=== PATIENT | female | born 2000 | race Two or more races ===

== ENCOUNTER 2021-07-04 12:29 | Emergency (ER) | payer OTHER, SELFPAY ==
--- NOTE | ~2021-07-04 | US_ITS ---
EXAMINATION: US PELVIC AND TRANSVAGINAL US PELVIC OVARIAN DOPPLER CLINICAL INFORMATION: Pain. LMP 06/24/2021. COMPARISON: None TECHNIQUE: Ultrasound of the pelvis is performed using transabdominal transducer and Doppler. Patient declined transvaginal imaging. FINDINGS: Uterus: The uterus is anteverted and measures 6.8 x 2.6 x 3.4 cm. The double wall endometrial thickness is 6 mm. The uterus is smooth in contour and has normal myometrial echogenicity. No visible fibroid. Adnexa: Both ovaries are visualized. There is normal color flow to the adnexa. There is no ovarian torsion. There is no pelvic ascites or fluid collection. Right ovary measures 2.2 x 2.3 x 1.5 cm. The right ovarian volume is 4.0 mL. There is a dominant right ovarian follicle measuring 1.2 cm. Left ovary measures 1.9 x 2.0 x 1.6 cm. The left ovarian volume is 3.2 mL. US/US pelvic and transvaginal IMPRESSION: 1. Dominant right ovarian follicle measuring 1.2 cm. Otherwise the ovaries are sonographically unremarkable. 2. Sonographically unremarkable uterus and endometrium.
--- NOTE | ~2021-07-04 | US_ITS ---
EXAMINATION: US PELVIC AND TRANSVAGINAL US PELVIC OVARIAN DOPPLER CLINICAL INFORMATION: Pain. LMP 06/24/2021. COMPARISON: None TECHNIQUE: Ultrasound of the pelvis is performed using transabdominal transducer and Doppler. Patient declined transvaginal imaging. FINDINGS: Uterus: The uterus is anteverted and measures 6.8 x 2.6 x 3.4 cm. The double wall endometrial thickness is 6 mm. The uterus is smooth in contour and has normal myometrial echogenicity. No visible fibroid. Adnexa: Both ovaries are visualized. There is normal color flow to the adnexa. There is no ovarian torsion. There is no pelvic ascites or fluid collection. Right ovary measures 2.2 x 2.3 x 1.5 cm. The right ovarian volume is 4.0 mL. There is a dominant right ovarian follicle measuring 1.2 cm. Left ovary measures 1.9 x 2.0 x 1.6 cm. The left ovarian volume is 3.2 mL. US/US pelvic ovarian doppler IMPRESSION: 1. Dominant right ovarian follicle measuring 1.2 cm. Otherwise the ovaries are sonographically unremarkable. 2. Sonographically unremarkable uterus and endometrium.
--- NOTE | ~2021-07-04 | CT_ITS ---
EXAMINATION: CT ABDOMEN AND PELVIS WITH CONTRAST CLINICAL INFORMATION: Left lower quadrant pain radiating to the right lower quadrant. COMPARISON: Pelvic ultrasound done earlier today at 3:17 PM. TECHNIQUE: Multidetector volumetric images were obtained from the superior aspect of the liver through the pubic symphysis following administration 85 mL of Omnipaque 350 intravenous contrast. Sagittal and coronal reformatted images were obtained on the technologist's workstation. Oral contrast: No This CT examination was performed using dose optimization techniques as appropriate, variously including the following: *Automated exposure control *Adjustment of mA and/or kV according to patient size (this includes techniques or standardized protocols for targeted exams where dose is matched to indication/reason for exam; i.e. extremities or head) *Use of iterative reconstruction technique DLP: 669 mGy-cm FINDINGS: LUNG BASES: The visualized lung bases are unremarkable. LIVER, GALLBLADDER, AND BILIARY TREE: The liver is normal in size, shape, and attenuation. Mild fatty infiltration adjacent to the falciform ligament. No focal hepatic lesion or biliary ductal dilatation is present. The gallbladder is unremarkable with no evidence of radiopaque gallstones, gallbladder wall thickening, or obvious pericholecystic inflammatory changes. PANCREAS: Unremarkable. SPLEEN: Unremarkable. ADRENAL GLANDS: Unremarkable. KIDNEYS AND URETERS: The kidneys are normal in size, shape, and attenuation. There are a few too small to characterize hypodensities in both kidneys for instance in the interpolar region of the left kidney on image 34 of series 7, which are statistically likely to represent simple cysts. There is however, a larger and somewhat more ill-defined hypodensity in the upper pole of the left kidney (images 22 of series 3 and 46 of series 7) of uncertain etiology. No hydronephrosis, hydroureter, or calculi seen. No perinephric stranding. BLADDER: Unremarkable. GASTROINTESTINAL TRACT: There are some debris in the distal esophagus which could indicate some degree of reflux. The stomach and the small bowel are nondilated. There is a normal appendix. There are no pericolic inflammatory changes or bowel obstruction. ABDOMINAL WALL: There is asymmetric soft tissue thickening and fat stranding in the left perirectal space adjacent to the pubococcygeal muscle and elevated ani (coronal image 50 of series 7). No abdominal hernia. LYMPH NODES: Prominent mesenteric lymph nodes in the right lower quadrant measuring up to 7 mm in short axis (image 26 of series 7). VASCULAR: Unremarkable. PELVIC VISCERA: Functional follicle seen in both ovaries. No adnexal lesions. Normal appearance of the uterus. OSSEOUS STRUCTURES: No acute or aggressive osseous abnormalities. CT/CT abdomen pelvis w con IMPRESSION: There is an ill-defined hypoattenuation in the upper pole of the left kidney which could be related with edematous changes sequela of an infectious or inflammatory process. Correlate clinically for pyelonephritis. Prominent mesenteric lymph nodes in the right lower quadrant of uncertain clinical significance. This could be seen in the setting of mesenteric adenitis. Normal appendix. Debris in the lower esophagus suggests some degree of reflux. Indeterminate fat stranding and thickening adjacent to the left pubococcygeal muscle of uncertain etiology, probably clinically for pain/tenderness at the site. This could be sequela of a prior injury. No drainable collection or abscess formation.
[2021-07-04 12:45] VITALS: BP 114/50; PULSE 68; RESP 18; TEMP 36.8; O2SAT 96; BMI 30.9
[2021-07-04 13:56] LABS: MANUAL DIFF FLAG NO
[2021-07-04 14:03] LABS: Basophils Percent Auto 0.5 % (0-2); Eosinophils Absolute Auto 0.2 X10*3/uL (0.0-0.4); Eosinophils Percent Auto 3.1 % (0-4); Hemoglobin 12.3 g/dl (12.0-16.0); Imm Gran Abs Auto 0.01 X10*3/uL (0.00-0.03); Imm Gran Pct Auto 0.2 % (0.0-0.4); Lymphocytes Absolute Auto 2.2 X10*3/uL (1.2-4.9); Mean Corpuscular HGB Conc 32.4 g/dl (31.0-35.0); Mean Corpuscular Hemoglobin 29.3 pg (27.0-33.0); Mean Corpuscular Volume 90.5 fL (80-98); Mean Platelet Volume 11.2 fL (9.4-12.3); Monocytes Absolute Auto 0.6 X10*3/uL (0.1-1.2); Monocytes Percent Auto 9.5 % (2-11); Neutrophils Absolute Auto 3.5 X10*3/uL (2.0-8.3); Neutrophils Percent Auto 53.7 % (45-73); Platelet Count 278 X10*3/uL (160-400); Red Cell Distribution Width 13.8 % (11.0-16.0); White Blood Count 6.5 X10*3/uL (4.8-10.8)
[2021-07-04 14:22] LABS: Alanine Aminotransferase 27 U/L (0-31); Albumin Level 4.4 g/dL (3.5-5.0); Alkaline Phosphatase 81 U/L (39-117); Anion Gap 10 (12-20); Aspartate Amino Transferase 33 U/L (5-31); Bilirubin Total 0.7 mg/dL (0.0-1.0); Blood Urea Nitrogen 9 mg/dL (9-16); Calcium 9.3 mg/dL (8.4-10.2); Carbon Dioxide 27 mmol/L (22-29); Chloride 107 mmol/L (96-108); Creatinine Clr Calc Pharmacy 109.6; Estimated Glomerular Filt Rate > 60; Glucose Random 107 mg/dL (60-115); Potassium 4.7 mmol/L (3.3-5.1); Sodium 139 mmol/L (135-145); Total Protein 7.4 g/dL (6.5-8.0)
--- NOTE | 2021-07-04 14:44 | ED_ITS ---
HPI - Abdominal Pain General Chief Complaint: Abdominal Pain Stated Complaint: low abd pain Time Seen by Provider: 07/04/21 14:43 Source: patient Mode of arrival: ambulatory Limitations: no limitations History of Present Illness HPI narrative: 20-year-old female, no known medical history presents to the emergency department with 2 days of left lower quadrant pain. She states she had pain similar to this 2 years ago, she was told she had a small ovarian cyst. She states that the pain is intermittent in nature, it is a stabbing pain and severe. She states it is so severe, it causes her to hunch over. She vaguely mentions that the pain is slowly moves from the left lower quadrant, to the right lower quadrant. She reports she had 1 episode of diarrhea today. She denies nausea, vomiting, chest pain, fevers, chills, weakness. Last menstrual period was 2 weeks ago. She states that her periods are heavy, and irregular. She is not regularly followed by an OBGYN. No previous abd surgeries. Not sexually active MD elicited complaint: abdominal pain Pertinent past history: none Onset (ago): day(s) (2) Pain Consistency: intermittent Location: RLQ, LLQ and suprapubic Severity: severe Quality: stabbing Radiation: RLQ Exacerbating factors: nothing Relieving factors: nothing Context: history of similar episodes (Two years ago.) Associated symptoms: other (Diarrhea x1) Related Data Previous Rx's Medication Instructions Recorded cefuroxime axetil 500 mg tablet 500 mg PO BID 10 Days #20 tab 07/04/21 cyclobenzaprine 10 mg tablet 10 mg PO Q8H PRN #14 tab 07/04/21 naproxen 500 mg tablet 500 mg PO BID PRN #10 tab 07/04/21 Allergies Allergy/AdvReac Type Severity Reaction Status Date / Time No Known Allergies Allergy Verified 07/04/21 12:44 [No Known Allergies*] Review of Systems Review of Systems Constitutional : denies med noncompliance, no history of PE or DVT, denies recent travel, No Fever, No Chills ENT/Mouth : No Hoarseness, No sore throat, No Rhinorrhea Eyes: No Redness, No Discharge, No Vision Changes Cardiovascular : No Chest Pain, No SOB, No Dyspnea on Exertion, No Edema, no pleurisy, Respiratory : No Sputum, no stridor, no hemoptysis, Gastrointestinal : No Nausea, No Vomiting, + Diarrhea, + abdominal Pain Genitourinary : No Dysuria, No Hematuria Musculoskeletal : No joint pain, No Myalgias Extremities: no extremity swelling /pain Skin : No rash, no itching, no swelling Neuro : No Weakness, No Numbness, No Headache Yes all other systems are reviewed and are negative Physical Exam Vital Signs: Vital Signs: Last Vital Signs Temp 98.3 F 07/04/21 15: Pulse 54 07/04/21 15: Resp 20 07/04/21 15:26 BP 126/53 L 07/04/21 15: Pulse Ox 100 07/04/21 15: Body Mass Index 30.9 vital signs have been reviewed as normal and appeared to be correct. Blood pressure normal. Heart rate normal. Respiration rate normal. Temperature normal. Oxygen saturation normal. Appearance: Alert. Oriented X3. No acute distress. Head: Normal external exam. Normocephalic. Eyes: PERRLA. EOMI. Conjunctiva and sclera normal. Eyelids normal. ENT: Pharynx normal. Uvula midline. Moist mucous membranes. Neck: Normal inspection. Neck supple. FROM. No adenopathy. No meningeal signs. CVS: Normal heart rate and rhythm. Heart sound normal. No murmurs noted. Pulses normal throughout. Respiratory: No respiratory distress. Painless inspiration. Breath sounds normal. No wheezes/rales/rhonchi noted. Chest nontender. No accessory muscle usage noted or decreased air movement noted. Abdomen: Soft and + tenderness to palpation to LLQ and epigastric region. Nondistended. No guarding. No rigidity. Bowel sounds normal in all 4 quadrants. No distention noted. No organomegaly noted. No visible injury noted. No rebound tenderness. Negative Rovsing sign. Negative obturator's sign. Negative psoas sign. Negative Dutton sign. Back: No CVA tenderness. Full range of motion noted. Skin: Skin warm and dry. Normal skin color. Normal skin turgor. No rashes/lesions/lacerations noted. Extremities: Extremities exhibit normal range of motion. Extremities nontender. Neuro: Oriented X 3. No motor deficit. No sensory deficit. Reflexes normal. Normal steady gait. Course Course Course Narrative: 20-year-old female no known medical history presents to the emergency department with intermittent, stabbing left lower quadrant pain that radiates to her RLQ x2 days, and one episode of liquid diarrhea. She states she had the same exact symptoms about 2 years ago, when she is diagnosed to have a small ovarian cyst. LMP was 2 weeks ago, she reports menometrorrhagia. No concerns for states she is not sexually active. No previous abd surgeries Upon physical examination and there is tenderness to palpation to the left lower quadrant, that radiates to the right lower quadrant. There is also tenderness noted over the epigastric region. Bowel sounds normal in all 4 quadrants. No peritoneal signs. Negative Dutton's, Rosving, McBurney's point. At this time it is unlikely that this is appendicitis, patient is afebrile, labs show no acute infection, there is no electrolyte abnormalities noted, the pain is intermittent in nature, and there is a negative Rovsing, and McBurney's point sign. Will look for ovarian cyst/ torsion with US. Reevaluation(s) Reevaluation #1: Upon reevaluation patient is still complaing of pain to LLQ. Laboratories today show no acute infection. No electrolyte abnormalities noted. UA/urine negative. Ovarian Doppler ultrasound, and pelvic ultrasound show a dominant ovarian follicle, with otherwise unremarkable ovaries. No other findings on ultrasound. Due to lack of acute findings on ultrasound and patients continued pain despite medication a CT of the abdomen with contrast will be ordered to rule out appendicitis or diverticulitis or any other intraabdominal processes Time: 16:18 Reevaluation #2: After reviewing the CT result it is likely that this is muscular in nature. Patient does not have CVA tenderness, urine is clean, patient is afebrile, patient does not report changes in urination, no dysuria, no changes to color of urine unlikely that this is pyelonephritis. Patient is safe for discharge home, likely musculoskeletal in origin, however she will be DC home with ATBX to cover pylonephritis. She will also be sent home with symptomatic treatment. Safe for discharge home with PCP follow-up. Time: 18:16 MDM - Abdominal Pain Medical Records Attestation: I reviewed the patient's medical records. Lab Data Attestation: I reviewed the patient's lab results. Result diagrams: 07/04/21 13:48 07/04/21 13:48 Labs: Lab Results 07/04/21 07/04/21 07/04/21 Range/Units 13:48 13:48 15:45 WBC 6.5 (4.8-10.8) X10*3/uL RBC 4.20 (4.20-5.50) X10*6/uL Hgb 12.3 (12.0-16.0) g/dl Hct 38.0 (37-47) % MCV 90.5 (80-98) fL MCH 29.3 (27.0-33.0) pg MCHC 32.4 (31.0-35.0) g/dl RDW 13.8 (11.0-16.0) % Plt Count 278 (160-400) X10*3/uL MPV 11.2 (9.4-12.3) fL Immature Gran % (Auto) 0.2 (0.0-0.4) % Neut % (Auto) 53.7 (45-73) % Lymph % (Auto) 33.0 (20-40) % [place] % (Auto) 9.5 (2-11) % Eos % (Auto) 3.1 (0-4) % Baso % (Auto) 0.5 (0-2) % Lymph # (Auto) 2.2 (1.2-4.9) X10*3/uL [place] # (Auto) 0.6 (0.1-1.2) X10*3/uL Eos # (Auto) 0.2 (0.0-0.4) X10*3/uL Baso # (Auto) 0.0 (0.0-0.2) X10*3/uL Abs Immat Gran (auto) 0.01 (0.00-0.03) X10*3/uL Absolute Neuts (auto) 3.5 (2.0-8.3) X10*3/uL Absolute Nucleated RBC 0.000 (0.0-0.012) X10*3/uL Nucleated RBC % (auto) 0.0 (0.0-0.2) /100WBC Sodium 139 (135-145) mmol/L Potassium 4.7 (3.3-5.1) mmol/L Chloride 107 (96-108) mmol/L Carbon Dioxide 27 (22-29) mmol/L Anion Gap 10 L (12-20) BUN 9 (9-16) mg/dL Creatinine 0.81 (0.5-1.4) mg/dL Estim Creat Clear Calc 109.6 Estimated GFR > 60 Random Glucose 107 (60-115) mg/dL Calcium 9.3 (8.4-10.2) mg/dL Total Bilirubin 0.7 (0.0-1.0) mg/dL AST 33 H (5-31) U/L ALT 27 (0-31) U/L Alkaline Phosphatase 81 (39-117) U/L Total Protein 7.4 (6.5-8.0) g/dL Albumin 4.4 (3.5-5.0) g/dL Lipase 28 (8-78) U/L Beta HCG, Quant < 2 mIU/mL Urine Color STRAW Urine Appearance CLEAR Urine pH 6.0 (5.0-8.0) Ur Specific [place] <= 1.005 (1.005-1.025) Urine Protein NEG (NEG-TRACE) MG/DL Urine Glucose (UA) NEG (NEG) MG/DL Urine Ketones NEG (NEG) MG/DL Urine Blood NEG (NEG) Urine Nitrite NEG (NEG) Ur Leukocyte Esterase NEG (NEG) Urine Test (NEGATIVE) 07/04/21 Range/Units 15:45 WBC (4.8-10.8) X10*3/uL RBC (4.20-5.50) X10*6/uL Hgb (12.0-16.0) g/dl Hct (37-47) % MCV (80-98) fL MCH (27.0-33.0) pg MCHC (31.0-35.0) g/dl RDW (11.0-16.0) % Plt Count (160-400) X10*3/uL MPV (9.4-12.3) fL Immature Gran % (Auto) (0.0-0.4) % Neut % (Auto) (45-73) % Lymph % (Auto) (20-40) % [place] % (Auto) (2-11) % Eos % (Auto) (0-4) % Baso % (Auto) (0-2) % Lymph # (Auto) (1.2-4.9) X10*3/uL [place] # (Auto) (0.1-1.2) X10*3/uL Eos # (Auto) (0.0-0.4) X10*3/uL Baso # (Auto) (0.0-0.2) X10*3/uL Abs Immat Gran (auto) (0.00-0.03) X10*3/uL Absolute Neuts (auto) (2.0-8.3) X10*3/uL Absolute Nucleated RBC (0.0-0.012) X10*3/uL Nucleated RBC % (auto) (0.0-0.2) /100WBC Sodium (135-145) mmol/L Potassium (3.3-5.1) mmol/L Chloride (96-108) mmol/L Carbon Dioxide (22-29) mmol/L Anion Gap (12-20) BUN (9-16) mg/dL Creatinine (0.5-1.4) mg/dL Estim Creat Clear Calc Estimated GFR Random Glucose (60-115) mg/dL Calcium (8.4-10.2) mg/dL Total Bilirubin (0.0-1.0) mg/dL AST (5-31) U/L ALT (0-31) U/L Alkaline Phosphatase (39-117) U/L Total Protein (6.5-8.0) g/dL Albumin (3.5-5.0) g/dL Lipase (8-78) U/L Beta HCG, Quant mIU/mL Urine Color Urine Appearance Urine pH (5.0-8.0) Ur Specific [place] (1.005-1.025) Urine Protein (NEG-TRACE) MG/DL Urine Glucose (UA) (NEG) MG/DL Urine Ketones (NEG) MG/DL Urine Blood (NEG) Urine Nitrite (NEG) Ur Leukocyte Esterase (NEG) Urine Test NEGATIVE (NEGATIVE) Imaging Data Pelvic/transvaginal ultrasound, ovarian Doppler: Attestation: I personally reviewed and interpreted this imaging study as beverley ryan: Radiologist's impression: FINDINGS: Uterus: The uterus is anteverted and measures 6.8 x 2.6 x 3.4 cm. The double wall endometrial thickness is 6 mm.? The uterus is smooth in contour and has normal myometrial echogenicity. No visible fibroid. Adnexa: Both ovaries are visualized. There is normal color flow to the adnexa. There is no ovarian torsion.? There is no pelvic ascites or fluid collection. Right ovary measures 2.2 x 2.3 x 1.5 cm. The right ovarian volume is 4.0 mL. There is a dominant right ovarian follicle measuring 1.2 cm. Left ovary measures 1.9 x 2.0 x 1.6 cm. The left ovarian volume is 3.2 mL. US/US pelvic ovarian doppler IMPRESSION: ? 1. Dominant right ovarian follicle measuring 1.2 cm. Otherwise the ovaries are sonographically unremarkable. ? 2. Sonographically unremarkable uterus and endometrium. CT scan - abdomen: Attestation: I personally reviewed and interpreted this imaging study as follows: Radiologist's impression: FINDINGS: LUNG BASES: The visualized lung bases are unremarkable.? LIVER, GALLBLADDER, AND BILIARY TREE: The liver is normal in size, shape, and attenuation. Mild fatty infiltration adjacent to the falciform ligament. No focal hepatic lesion or biliary ductal dilatation is present. The gallbladder is unremarkable with no evidence of radiopaque gallstones, gallbladder wall thickening, or obvious pericholecystic inflammatory changes.? PANCREAS: Unremarkable.? SPLEEN: Unremarkable.? ADRENAL GLANDS: Unremarkable.? KIDNEYS AND URETERS: The kidneys are normal in size, shape, and attenuation. There are a few too small to characterize hypodensities in both kidneys for instance in the interpolar region of the left kidney on image 34 of series 7, which are statistically likely to represent simple cysts. There is however, a larger and somewhat more ill-defined hypodensity in the upper pole of the left kidney (images 22 of series 3 and 46 of series 7) of uncertain etiology. No hydronephrosis, hydroureter, or calculi seen. No perinephric stranding. ? BLADDER: Unremarkable.? GASTROINTESTINAL TRACT: There are some debris in the distal esophagus which could indicate some degree of reflux. The stomach and the small bowel are nondilated. There is a normal appendix. There are no pericolic inflammatory changes or bowel obstruction. ABDOMINAL WALL: There is asymmetric soft tissue thickening and fat stranding in the left perirectal space adjacent to the pubococcygeal muscle and elevated ani (coronal image 50 of series 7). No abdominal hernia.? LYMPH NODES: Prominent mesenteric lymph nodes in the right lower quadrant measuring up to 7 mm in short axis (image 26 of series 7). VASCULAR: Unremarkable. PELVIC VISCERA: Functional follicle seen in both ovaries. No adnexal lesions. Normal appearance of the uterus.? OSSEOUS STRUCTURES: No acute or aggressive osseous abnormalities.? CT/CT abdomen pelvis w con IMPRESSION: There is an ill-defined hypoattenuation in the upper pole of the left kidney which could be related with edematous changes sequela of an infectious or inflammatory process. Correlate clinically for pyelonephritis. ? Prominent mesenteric lymph nodes in the right lower quadrant of uncertain clinical significance. This could be seen in the setting of mesenteric adenitis. Normal appendix. ? Debris in the lower esophagus suggests some degree of reflux. ? Indeterminate fat stranding and thickening adjacent to the left pubococcygeal muscle of uncertain etiology, probably clinically for pain/tenderness at the site. This could be sequela of a prior injury. No drainable collection or abscess formation. Critical Care Time Critical Care Time Critical Care Time: Yes Total Critical Care Time: 60 Attestation: I personally attest to this time spent taking care of the patient Discharge Plan Discharge Clinical Impression: Pyelonephritis Abdominal pain Qualifiers: Abdominal location: left lower quadrant Qualified Code(s): R10.32 - Left lower quadrant pain Patient Disposition: Home, Self-Care Instructions: Abdominal Pain (ED) Additional Instructions: Follow-up with her primary care provider. Return to the emergency department with new or worsening symptoms Prescriptions: New naproxen 500 mg tablet 500 mg PO BID PRN (Reason: pain) Qty: 10 RF: 0 cyclobenzaprine 10 mg tablet 10 mg PO Q8H PRN (Reason: Muscle spasm) Qty: 14 RF: 0 cefuroxime axetil 500 mg tablet 500 mg PO BID 10 Days Qty: 20 RF: 0 Referrals: Physician,None [Primary Care Provider] - 2 days Stand Alone Forms: Work/School Release Print Language: Kazakh FORMERLY [facility], [facility]–1983 Past Medical History Attestation statement: The following information was validated with the patient. Source: old records reviewed Medical History Ovarian cyst Social History Social History Advance Directives: No Patient : No
[2021-07-04 14:59] LABS: Lipase 28 U/L (8-78)
[2021-07-04 15:06] LABS: HCG Quantitative < 2 mIU/mL
[2021-07-04 15:26] VITALS: BP 126/53; PULSE 54; RESP 20; TEMP 36.8; O2SAT 100
[2021-07-04 15:52] LABS: Appearance Urine CLEAR; Color Urine STRAW; Glucose Urine UA NEG (NEG); Leukocyte Esterase Urine NEG (NEG); Nitrite Urine NEG (NEG); Specific Gravity - Urine <= 1.005 (1.005-1.025); Urine Blood NEG (NEG); Urine Ketones NEG (NEG); Urine Protein NEG (NEG-TRACE)
[2021-07-04 15:54] LABS: UPreg QC Valid YES; Urine Pregnancy NEGATIVE (NEGATIVE)
[2021-07-04] MEDS: iohexoL 350 MG/ML 100 ML INFUS..BTL 85 ML IV (17:34)
[2021-07-04] MEDS: oxyCODONE HCl Immed Release 5 MG TABLET PO (18:28)
== END 2021-07-04 19:06 | disposition home or self-care (01) ==
PROVIDERS: Physician Assistant Medical; Emergency Provider Emergency Medicine Emergency Medical Services
DX: N12 Tubulo-interstitial nephritis, not specified as acute or chronic (principal); N92.0 Excessive and frequent menstruation with regular cycle; R10.31 Right lower quadrant pain; R10.32 Left lower quadrant pain; R19.7 Diarrhea, unspecified; Z79.899 Other long term (current) drug therapy
CPT/HCPCS: 36415; 74177; 76830; 76856; 80053; 81003; 81025; 83690; 84702; 85025; 93975; 99284; 99291; Q9967

== ENCOUNTER 2022-02-19 08:13 | Emergency (ER) | payer OTHER, SELFPAY ==
--- NOTE | ~2022-02-19 | XR_ITS ---
EXAMINATION: XR CHEST CLINICAL INFORMATION: Shortness of breath. Nausea, vomiting, diarrhea. COMPARISON: None TECHNIQUE: 2 views of the chest were obtained. FINDINGS: The lungs are well expanded. There is no focal consolidation, edema, or effusion. No pneumothorax. The cardiomediastinal silhouette is within normal limits. No acute osseous abnormality. XR/XR chest 2V IMPRESSION: Clear lungs.
--- NOTE | ~2022-02-19 | CT_ITS ---
EXAMINATION: CT ABDOMEN AND PELVIS WITHOUT CONTRAST CLINICAL INFORMATION: Lower abdominal pain. Nausea, vomiting, diarrhea. COMPARISON: 07/04/2021 TECHNIQUE: Multidetector volumetric imaging was performed from the superior aspect of the liver through the pubic symphysis. Sagittal and coronal reformatted images were obtained on the technologist's workstation. This CT examination was performed using dose optimization techniques as appropriate, variously including the following: *Automated exposure control *Adjustment of mA and/or kV according to patient size (this includes techniques or standardized protocols for targeted exams where dose is matched to indication/reason for exam; i.e. extremities or head) *Use of iterative reconstruction technique DLP: 568 mGy-cm FINDINGS: LUNG BASES: The visualized lung bases are unremarkable. LIVER, GALLBLADDER, AND BILIARY TREE: The liver is normal in size, shape, and attenuation. No focal hepatic lesion or biliary ductal dilatation is present. The gallbladder is unremarkable with no evidence of radiopaque gallstones, gallbladder wall thickening, or obvious pericholecystic inflammatory changes. PANCREAS: Unremarkable. SPLEEN: Unremarkable. ADRENAL GLANDS: Unremarkable. KIDNEYS AND URETERS: The kidneys are normal in size, shape, and attenuation. No hydronephrosis or hydroureter. Suspect a 0.2 cm right midpole renal calculus which is 10 cm from the posterior axillary line. BLADDER: Unremarkable. GASTROINTESTINAL TRACT: The stomach is unremarkable. Normal caliber small bowel. No obstruction. There is a normal appendix. Scattered colonic diverticulosis. No diverticulitis. Much of the colon is decompressed. Suggestion of diffuse colonic wall thickening, though there is no significant inflammatory change surrounding the colon. This could simply be secondary to decompression. No free air or free fluid. ABDOMINAL WALL: No significant hernia is appreciated. LYMPH NODES: Normal. VASCULAR: Unremarkable. PELVIC VISCERA: The uterus and adnexa are unremarkable. OSSEOUS STRUCTURES: No acute or suspicious osseous abnormality. CT/CT abdomen pelvis wo con IMPRESSION: No definite acute abnormality of the abdomen or pelvis. Much of the colon is decompressed which limits the evaluation. There is suggestion of diffuse colonic wall thickening, though no surrounding inflammatory changes are seen. The appearance favors decompression rather than colitis. Scattered colonic diverticulosis without diverticulitis. Likely nonobstructing tiny right renal calculi. Fleischner guidelines were followed.
[2022-02-19 08:20] VITALS: BP 109/55; PULSE 71; RESP 18; TEMP 36.6; O2SAT 99; BMI 29.7
[2022-02-19 08:52] LABS: COVID-19 Test Negative (Negative); IDNOW Serial# 55D5AD1C
[2022-02-19 08:53] LABS: Influenza A Negative (Negative); Influenza B2 Negative (Negative)
[2022-02-19 08:57] LABS: Strep A Nucleic Acid Negative (Negative)
[2022-02-19 09:48] LABS: MANUAL DIFF FLAG NO
[2022-02-19 09:50] LABS: Basophils Percent Auto 0.3 % (0-2); Eosinophils Percent Auto 0.3 % (0-4); Hematocrit 38.6 % (37.0-47.0); Hemoglobin 12.7 g/dl (12.0-16.0); Imm Gran Abs Auto 0.05 X10*3/uL (0.00-0.03); Imm Gran Pct Auto 0.4 % (0.0-0.4); Lymphocytes Absolute Auto 1.7 X10*3/uL (1.2-4.9); Lymphocytes Percent Auto 14.3 % (20-40); Mean Corpuscular HGB Conc 32.9 g/dl (31.0-35.0); Mean Corpuscular Hemoglobin 29.7 pg (27.0-33.0); Mean Corpuscular Volume 90.2 fL (80.0-98.0); Mean Platelet Volume 11.2 fL (9.4-12.3); Monocytes Absolute Auto 0.6 X10*3/uL (0.1-1.2); Monocytes Percent Auto 4.9 % (2-11); Neutrophils Absolute Auto 9.4 x10*3/uL (2.0-8.3); Neutrophils Percent Auto 79.8 % (45-73); Platelet Count 251 X10*3/uL (160-400); Red Blood Count 4.28 X10*6/uL (4.20-5.50); Red Cell Distribution Width 13.6 % (11.0-16.0); White Blood Count 11.8 X10*3/uL (4.8-10.8)
[2022-02-19] MEDS: Ondansetron ODT 4 MG TAB.RAPDIS TRANSLINGU (09:57)
--- NOTE | 2022-02-19 10:08 | ED_ITS ---
HPI - General Adult General Chief complaint: General Medical Stated complaint: ear pain sore throat vomiting Time Seen by Provider: 02/19/22 09:30 Source: patient and family Mode of arrival: ambulatory Limitations: no limitations History of Present Illness HPI narrative: 21-year-old female with a past medical history of ovarian cyst and asthma presenting to the emergency department with complaints of flu-like symptoms which include body aches, fatigue, malaise, ear pain, sore throat, 1 episode of vomiting, nausea, 1 episode of diarrhea, lower abdominal cramping and shortness of breath without a cough with chest tightness since yesterday. Denies any measured fevers, dizziness, headaches, neck pain / stiffness, trouble swallowing, change in voice, black or bloody emesis, sputum production, radiation of the abdominal pain, back pain, flank pain, dysuria, hematuria, abnormal vaginal discharge, rashes, recent travel or sick contacts or any other symptoms complaints or concerns at this time. Reports that she is still able to eat and drink in asking for something a drink once I gave her the urine cup. MD complaint: Multiple complaints Onset (ago): day(s) ( Since yesterday) Location: abdomen Radiation: non-radiation Severity: mild Quality: other ( cramping) Pain Consistency: intermittent Relieving factors: none Exacerbating factors: none Associated symptoms: nausea/vomiting and shortness of breath Treatments prior to arrival: none Related Data Previous Rx's Medication Instructions Recorded cefuroxime axetil 500 mg tablet 500 mg PO BID 10 Days #20 tab 07/04/21 cyclobenzaprine 10 mg tablet 10 mg PO Q8H PRN #14 tab 07/04/21 naproxen 500 mg tablet 500 mg PO BID PRN #10 tab 07/04/21 dicyclomine 20 mg tablet 20 mg PO BID #14 tab 02/19/22 ondansetron 4 mg disintegrating 4 mg PO Q6H #14 tab 02/19/22 tablet Allergies Allergy/AdvReac Type Severity Reaction Status Date / Time No Known Allergies Allergy Verified 07/04/21 12:44 [No Known Allergies*] Review of Systems Review of Systems: Constitutional : + fatigue/ malaise /chills, No Weight loss, No Fever, No Night Sweats ENT/Mouth : + sore throat, + ear pain, No Hearing loss, No Nasal Congestion, No Sinus Pain, No Hoarseness, No Rhinorrhea, No Swallowing Difficulty Eyes: No Eye Pain, No Swelling, No Redness, No Foreign Body, No Discharge, No Vision Changes Cardiovascular : + chest tightness/shortness of breath, No Chest Pain, No Dyspnea on Exertion, No Orthopnea, No Edema, No Palpitations Respiratory : No Cough, No Sputum, No Wheezing, No Smoke Exposure, No Dyspnea Gastrointestinal : + Nausea, + Vomiting, + Diarrhea, No Constipation, + abdominal Pain, No Hematochezia, No Melena Genitourinary : no irregular bleeding, No Dysuria, No Urinary Frequency, No Hematuria, No Urinary Incontinence, No Urgency, No Flank Pain, No Urinary Flow Changes, No Hesitancy Musculoskeletal : No joint pain, + Myalgias, No Joint Swelling Skin : No Skin Lesions, No rash Neuro : No Weakness, No Numbness, No Paresthesias, No Loss of Consciousness, No Dizziness, No Headache Psych : No Anxiety/Panic, No Depression, No SI/HI/AH/VH, No Social Issues, Heme/Lymph: No Bruising, No Bleeding,No Lymphadenopathy Endocrine : No Polyuria, No Polydipsia, No Temperature Intolerance Yes all other systems are reviewed and are negative [facility] Past Medical History Attestation statement: The following information was validated with the patient. Source: old records reviewed, obtained from family and nursing notes reviewed Medical History Ovarian cyst Social History Social History Advance Directives: No Advance Directives Information Provided: No Physical Exam ED Vital Signs: Vital Signs - 24 hr 02/19/22 08:20 Temperature 97.8 F Pulse Rate 71 Respiratory Rate 18 Blood Pressure 109/55 L Pulse Oximetry 99 BMI result Body Mass Index 29.7 vital signs have been reviewed as normal and appeared to be correct. Blood pressure normal. Heart rate normal. Respiration rate normal. Temperature normal. Oxygen saturation normal. Appearance: Alert. Oriented X3. No acute distress. Head: Normal external exam. Normocephalic. Atraumatic. Eyes: PERRLA. EOMI. Conjunctiva and sclera normal. Eyelids normal. ENT: EAC normal. TM's Normal. Pharynx normal. Uvula midline. Moist mucous membranes. No lesions/ulcerations or masses noted on the tongue. Normal voice. No trismus noted. No drooling noted. No muffled voice noted. Neck: Normal inspection. Neck supple. FROM. No adenopathy. Thyroid Normal. No tracheal deviation noted. No crepitus is noted. No meningeal signs. No neck mass noted. No signs of trauma noted. CVS: Normal heart rate and rhythm. Heart sound normal. Pulses normal throughout. No murmurs/rales/gallops. Respiratory: No respiratory distress. Painless inspiration. Breath sounds normal. No wheezes/rales/rhonchi noted. Chest nontender. No crepitus is noted. No signs of trauma noted. No accessory muscle usage noted or decreased air movement noted. No signs of trauma. Abdomen: Soft and mild ttp to suprapubic area. Bowel sounds normal in all 4 quadrants. No distention noted. No organomegaly noted. No visible injury noted. Back: No CVA tenderness. Full range of motion noted. Nontender. No signs of trauma. Patient neuro intact bilaterally and distally on all 4 extremities. Patient's reflexes intact bilaterally and distally on all 4 extremities. No rashes/lesion/induration/fluctuance or signs of infection noted. Skin: Skin warm and dry. Normal skin color. Normal skin turgor. No rashes/lesions/lacerations noted. Extremities: No lower extremity edema. No calf tenderness is noted. Extremitie s exhibit normal range of motion and nontender. Neuro: Oriented X 3. No motor deficit. No sensory deficit. Reflexes normal. Normal steady gait. No focal neuro deficits noted. CN's II-XII intact bilaterally? Vascular: + radial pulses/+ 2 distal pedal pulses/+2 dorsalis pedis b/l. Normal cap refill. No cyanosis noted to upper extremity nails and lower extremity toes nails. Course Course Course Narrative: 9:35am - 21-year-old female with a past medical history of ovarian cyst and asthma pr esenting to the emergency department with complaints of flu-like symptoms which include body aches, fatigue, malaise, ear pain, sore throat, 1 episode of vomiting, nausea, 1 episode of diarrhea, lower abdominal cramping and shortness of breath without a cough with chest tightness since yesterday. Reports that she is still able to eat and drink in asking for something a drink once I gave her the urine cup. Pt negative for COVID/FLU/STREP Plan: Labs, UA, CXR, CT scan of abd/pelvis. Provide PO Zofran and PO fluids then re-eval. Reevaluation(s) Reevaluation #1: - labs within normal limits. UA was not given. Chest x-ray within normal limits no evidence of pneumonia or any other acute processes. CT scan abdomen pelvis within normal limits no acute processes noted. Patient is tolerating p.o. fluids/ solids. Therefore patient most likely viral syndrome will DC home with symptomatic treatment instructions return if any new or worsening symptoms follow up with primary care provider. Patient family at bedside understand agree this plan. Time: 11:21 Medical Decision Making Medical Records Medical records reviewed: Yes I reviewed the patient's medical records. Lab Data Lab results reviewed: Yes I reviewed the patient's lab results. Result diagrams: 02/19/22 09:44 02/19/22 09:44 Labs: Lab Results 02/19/22 02/19/22 02/19/22 Range/Units 08:22 08:22 08:22 WBC (4.8-10.8) X10*3/uL RBC (4.20-5.50) X10*6/uL Hgb (12.0-16.0) g/dl Hct (37.0-47.0) % MCV (80.0-98.0) fL MCH (27.0-33.0) pg MCHC (31.0-35.0) g/dl RDW (11.0-16.0) % Plt Count (160-400) X10*3/uL MPV (9.4-12.3) fL Immature Gran % (Auto) (0.0-0.4) % Neut % (Auto) (45-73) % Lymph % (Auto) (20-40) % [place] % (Auto) (2-11) % Eos % (Auto) (0-4) % Baso % (Auto) (0-2) % Lymph # (Auto) (1.2-4.9) X10*3/uL [place] # (Auto) (0.1-1.2) X10*3/uL Eos # (Auto) (0.0-0.4) X10*3/uL Baso # (Auto) (0.0-0.2) X10*3/uL Abs Immat Gran (auto) (0.00-0.03) X10*3/uL Absolute Neuts (auto) (2.0-8.3) x10*3/uL Absolute Nucleated RBC (0.0-0.012) X10*3/uL Nucleated RBC % (auto) (0.0-0.2) /100WBC Sodium (135-145) mmol/L Potassium (3.3-5.1) mmol/L Chloride (96-108) mmol/L Carbon Dioxide (22-29) mmol/L Anion Gap (12-20) BUN (9-16) mg/dL Creatinine (0.5-1.4) mg/dL Estim Creat Clear Calc Estimated GFR Random Glucose (60-115) mg/dL Calcium (8.4-10.2) mg/dL Magnesium (1.6-2.6) mg/dL Total Bilirubin (0.0-1.0) mg/dL AST (5-31) U/L ALT (0-31) U/L Alkaline Phosphatase (39-117) U/L Total Protein (6.5-8.0) g/dL Albumin (3.5-5.0) g/dL Beta HCG, Quant mIU/mL COVID-19 ([facility]) Negative (Negative) COVID-19 Clin Com See Note Influenza Type A (BIB) Negative (Negative) Influenza Type B (BIB) Negative (Negative) Influenza A & B Note See Note S. pyogenes GrpA BIB Negative (Negative) 02/19/22 02/19/22 02/19/22 Range/Units 09:44 09:44 09:44 WBC 11.8 H (4.8-10.8) X10*3/uL RBC 4.28 (4.20-5.50) X10*6/uL Hgb 12.7 (12.0-16.0) g/dl Hct 38.6 (37.0-47.0) % MCV 90.2 (80.0-98.0) fL MCH 29.7 (27.0-33.0) pg MCHC 32.9 (31.0-35.0) g/dl RDW 13.6 (11.0-16.0) % Plt Count 251 (160-400) X10*3/uL MPV 11.2 (9.4-12.3) fL Immature Gran % (Auto) 0.4 (0.0-0.4) % Neut % (Auto) 79.8 H (45-73) % Lymph % (Auto) 14.3 L (20-40) % [place] % (Auto) 4.9 (2-11) % Eos % (Auto) 0.3 (0-4) % Baso % (Auto) 0.3 (0-2) % Lymph # (Auto) 1.7 (1.2-4.9) X10*3/uL [place] # (Auto) 0.6 (0.1-1.2) X10*3/uL Eos # (Auto) 0.0 (0.0-0.4) X10*3/uL Baso # (Auto) 0.0 (0.0-0.2) X10*3/uL Abs Immat Gran (auto) 0.05 H (0.00-0.03) X10*3/uL Absolute Neuts (auto) 9.4 H (2.0-8.3) x10*3/uL Absolute Nucleated RBC 0.000 (0.0-0.012) X10*3/uL Nucleated RBC % (auto) 0.0 (0.0-0.2) /100WBC Sodium 141 (135-145) mmol/L Potassium 4.1 (3.3-5.1) mmol/L Chloride 106 (96-108) mmol/L Carbon Dioxide 24 (22-29) mmol/L Anion Gap 15 (12-20) BUN 7 L (9-16) mg/dL Creatinine 0.77 (0.5-1.4) mg/dL Estim Creat Clear Calc 111.9 Estimated GFR > 60 Random Glucose 79 (60-115) mg/dL Calcium 9.5 (8.4-10.2) mg/dL Magnesium 2.1 (1.6-2.6) mg/dL Total Bilirubin 0.4 (0.0-1.0) mg/dL AST 25 (5-31) U/L ALT 17 (0-31) U/L Alkaline Phosphatase 77 (39-117) U/L Total Protein 7.8 (6.5-8.0) g/dL Albumin 4.4 (3.5-5.0) g/dL Beta HCG, Quant < 2 mIU/mL COVID-19 ([facility]) (Negative) COVID-19 Clin Com Influenza Type A (BIB) (Negative) Influenza Type B (BIB) (Negative) Influenza A & B Note S. pyogenes GrpA BIB (Negative) Imaging Data Chest x-ray: Attestation: I personally reviewed and interpreted this imaging study as follows: Radiologist's impression: FINDINGS: The lungs are well expanded. There is no focal consolidation, edema, or effusion. No pneumothorax. The cardiomediastinal silhouette is within normal limits. No acute osseous abnormality. XR/XR chest 2V IMPRESSION: Clear lungs. abd/pelvis no contrast: Attestation: I personally reviewed and interpreted this imaging study as follows: Radiologist's impression: FINDINGS: LUNG BASES: The visualized lung bases are unremarkable.? LIVER, GALLBLADDER, AND BILIARY TREE: The liver is normal in size, shape, and attenuation. No focal hepatic lesion or biliary ductal dilatation is present. The gallbladder is unremarkable with no evidence of radiopaque gallstones, gallbladder wall thickening, or obvious pericholecystic inflammatory changes.? PANCREAS: Unremarkable.? SPLEEN: Unremarkable.? ADRENAL GLANDS: Unremarkable.? KIDNEYS AND URETERS: The kidneys are normal in size, shape, and attenuation. No hydronephrosis or hydroureter. Suspect a 0.2 cm right midpole renal calculus which is 10 cm from the posterior axillary line. BLADDER: Unremarkable.? GASTROINTESTINAL TRACT: The stomach is unremarkable. Normal caliber small bowel. No obstruction. There is a normal appendix. Scattered colonic diverticulosis. No diverticulitis. Much of the colon is decompressed. Suggestion of diffuse colonic wall thickening, though there is no significant inflammatory change surrounding the colon. This could simply be secondary to decompression. No free air or free fluid. ABDOMINAL WALL: No significant hernia is appreciated.? LYMPH NODES: Normal. VASCULAR: Unremarkable. PELVIC VISCERA: The uterus and adnexa are unremarkable.? OSSEOUS STRUCTURES: No acute or suspicious osseous abnormality.? CT/CT abdomen pelvis wo con IMPRESSION: No definite acute abnormality of the abdomen or pelvis. Much of the colon is decompressed which limits the evaluation. There is suggestion of diffuse colonic wall thickening, though no surrounding inflammatory changes are seen. The appearance favors decompression rather than colitis. ? Scattered colonic diverticulosis without diverticulitis. ? Likely nonobstructing tiny right renal calculi.? ? Fleischner guidelines were followed. Discharge Plan Discharge Clinical Impression: Acute viral syndrome Patient Disposition: Home, Self-Care Instructions: Viral Syndrome (ED) Prescriptions: New ondansetron 4 mg tablet,disintegrating 4 mg PO Q6H Qty: 14 0RF dicyclomine 20 mg tablet 20 mg PO BID Qty: 14 0RF No Action naproxen 500 mg tablet 500 mg PO BID PRN (Reason: pain) Qty: 10 0RF cyclobenzaprine 10 mg tablet 10 mg PO Q8H PRN (Reason: Muscle spasm) Qty: 14 0RF cefuroxime axetil 500 mg tablet 500 mg PO BID 10 Days Qty: 20 0RF Referrals: Physician,None [Primary Care Provider] - 2 days (your pcp) Stand Alone Forms: Work/School Release
[2022-02-19 10:20] LABS: Alanine Aminotransferase 17 U/L (0-31); Albumin Level 4.4 g/dL (3.5-5.0); Alkaline Phosphatase 77 U/L (39-117); Anion Gap 15 (12-20); Aspartate Amino Transferase 25 U/L (5-31); Bilirubin Total 0.4 mg/dL (0.0-1.0); Blood Urea Nitrogen 7 mg/dL (9-16); Calcium 9.5 mg/dL (8.4-10.2); Carbon Dioxide 24 mmol/L (22-29); Chloride 106 mmol/L (96-108); Creatinine Clr Calc Pharmacy 111.9; Estimated Glomerular Filt Rate > 60; Glucose Random 79 mg/dL (60-115); Magnesium 2.1 mg/dL (1.6-2.6); Potassium 4.1 mmol/L (3.3-5.1); Sodium 141 mmol/L (135-145); Total Protein 7.8 g/dL (6.5-8.0)
[2022-02-19 10:23] LABS: HCG Quantitative < 2 mIU/mL
[2022-02-19 11:49] LABS: Appearance Urine CLOUDY; Color Urine YELLOW; Glucose Urine UA NEG (NEG); Leukocyte Esterase Urine NEG (NEG); Nitrite Urine NEG (NEG); Specific Gravity - Urine >= 1.030 (1.005-1.025); UACC Culture Trigger NO; Urine Blood 3+ (NEG); Urine Ketones 15 MG/DL (NEG); Urine Protein NEG (NEG-TRACE)
[2022-02-19 12:49] LABS: RBC Urine 50-75 /HPF (0)
== END 2022-02-19 11:39 | disposition home or self-care (01) ==
PROVIDERS: Physician Assistant Medical; Emergency Provider Emergency Medicine
DX: B34.9 Viral infection, unspecified (principal); R06.02 Shortness of breath; R19.7 Diarrhea, unspecified; J45.909 Unspecified asthma, uncomplicated; Z20.822 Contact with and (suspected) exposure to COVID-19
CPT/HCPCS: 36415; 71046; 74176; 80053; 81001; 81003; 83735; 84702; 85025; 87502; 87635; 87651; 99283; 99284

== ENCOUNTER 2023-03-26 09:16 | Emergency (ER) | payer OTHER, SELFPAY ==
[2023-03-26 09:20] VITALS: BP 124/73; PULSE 56; RESP 17; TEMP 37; O2SAT 98; BMI 31.0
--- NOTE | 2023-03-26 10:04 | PC.NURSE ---
swabs obtained and sent. pt appears comfortable at this time, no s/s of distress
--- NOTE | 2023-03-26 10:31 | ED.GENADULT ---
HPI - General Adult General Chief complaint: Fever Stated complaint: fever/ headache Time Seen by Provider: 03/26/23 09:29 Source: patient Mode of arrival: ambulatory Limitations: no limitations History of Present Illness HPI narrative: 22-year-old female with history of asthma and ovarian cyst presents to the ED for fever this morning cough, body aches, chills, and headache. Patient denies any chest pain, shortness of breath, rash, leg swelling, or sore throat. Patient states she lives alone no one else at home is sick. Patient states recently she went camping but denies being bitten by animal or tick/insects. Patient denies any rash Related Data Previous Rx's Medication Instructions Recorded cefuroxime axetil 500 mg tablet 500 mg PO BID 10 days #20 tabs 07/04/21 cyclobenzaprine 10 mg tablet 10 mg PO Q8H PRN Muscle spasm #14 07/04/21 tabs naproxen 500 mg tablet 500 mg PO BID PRN pain #10 tabs 07/04/21 dicyclomine 20 mg tablet 20 mg PO BID abdominal cramping 02/19/22 #14 tabs ondansetron 4 mg disintegrating 4 mg PO Q6H Nausea and vomiting 02/19/22 tablet #14 tabs Allergies Allergy/AdvReac Type Severity Reaction Status Date / Time No Known Allergies Allergy Verified 03/26/23 09:19 [No Known Allergies*] Review of Systems Review of Systems: fever, cough, headache, chills, body aches Yes all other systems are reviewed and are negative PMFSH Past Medical History Medical History Ovarian cyst Social History Social History Advance Directives: No Advance Directives Information Provided: Yes Physical Exam ED Vital Signs: Vital Signs - 24 hr 03/26/23 09:20 Temperature 98.6 F Pulse Rate 56 Respiratory Rate 17 Blood Pressure 124/73 Pulse Oximetry 98 Oxygen Delivery Method Room Air BMI result Body Mass Index 31.0 Const General: cooperative, healthy appearing, comfortable, no acute distress, well developed, alert, awake and Physically active Orientation/consciousness: oriented to person, oriented to place, oriented to time and patient oriented x3 HENMT Head: Yes normal to inspection, Yes No palpable skull fracture present, Yes normocephalic, Yes atraumatic and No abrasion Ears: hearing grossly normal bilaterally, external ears normal, TM's normal bilaterally, TM normal on the right, TM normal on the left, EAC's normal, mastoids normal and no periauricular adenopathy Throat: Yes posterior oropharynx normal, Yes tonsils normal and Yes uvula midline Eyes General: appearance normal, both eyes and all related structures Neck Neck: Yes normal visual inspection, Yes full ROM, Yes no lymphadenopathy, Yes no meningeal signs, Yes trachea midline, Yes supple, No anterior neck swelling and No tender Chest Chest palpation & inspection: normal inspection of the chest and normal palpation of entire chest wall Resp Effort & Inspection: normal respiratory effort and able to speak in complete sentences Auscultation: clear to auscultation bilaterally Cardio Jugular venous distension: no JVD Heart sounds: S1 normal heart sound present and S2 normal heart sound present GI Inspection: Yes normal to inspection and No abdominal wall ecchymosis Palpation (GI): Soft to palpation, not firm, nontender, no guarding and not rigid General: No CVA tenderness and Yes no CVA tenderness Back/Spine/Pelvis Back: no CVA tenderness, No CVA tenderness and No back tenderness Skin Other: Whole-body inspected and negative for signs of tick or insect bites. Negative for signs of cellulitis, ecchymosis, petechia, or erythema migrans on whole body. General skin exam: no rashes or lesions noted, elasticity normal and turgor normal Neuro General: oriented to person, oriented to place, oriented to time, patient oriented x3, gait normal, tone normal, moves all extremities, Normal light touch and pain sensation, no meningeal signs, no focal motor deficits, CN's II-XI intact bilaterally and normal sensation to monofilament Extrem General: Yes normal to inspection and Yes full ROM Psych Appearance: grossly normal, well kempt and not disheveled Medical Decision Making Medical Decision Making MDM Narrative: 22-year-old female presents to the ED for fever, headaches, coughing, chills since this morning. Patient denies any chest pain, shortness of breath, rash, neck stiffness, abdominal pain, nausea, vomiting, flank pain, any genitourinary symptoms. patient well-appearing low suspicion for pneumonia no need for x-ray. Patient vital signs are stable lungs clear. Negative for signs of meningitis. Not suspecting meningitis. Differential Diagnosis Differential Diagnoses: The differential diagnosis associated with the presentation includes ( Pneumonia, cellulitis, tick bite, URI, strep throat, viral syndrome, meningitis, lyme) Admission/Observation Consideration of admission/observation: Escalation of care including admission/observation considered Lab Data MDM Lab Attestation statement: I reviewed the patient's lab results. Labs: Lab Results 03/26/23 03/26/23 03/26/23 Range/Units 09:46 09:46 09:46 COVID-19 ([facility]) Negative (Negative) COVID-19 Clin Com See Note Influenza Type A (BIB) Negative (Negative) Influenza Type B (BIB) Negative (Negative) Influenza A & B Note See Note S. pyogenes GrpA BIB Negative (Negative) Independent Historian Clinical information obtained from an independent historian. History obtained from or confirmed by: Other (patient) Tests considered The following testing was considered but not selected: Xray Discharge Plan Discharge Clinical Impression: URI (upper respiratory infection) Patient Disposition: Home, Self-Care Instructions: Upper Respiratory Infection (ED), Viral Syndrome (ED) Additional Instructions: Presents to the ED immediately for chest pain, shortness of breath, sore throat, ear pain, rash, abdominal pain, dysuria, hematuria, flank pain, neck stiffness, headache, light bothered eyes, or any other concerning symptoms. Please follow-up with your PCP Prescriptions: No Action naproxen 500 mg tablet 500 mg PO BID PRN (Reason: pain) Qty: 10 0RF cyclobenzaprine 10 mg tablet 10 mg PO Q8H PRN (Reason: Muscle spasm) Qty: 14 0RF cefuroxime axetil 500 mg tablet 500 mg PO BID 10 Days Qty: 20 0RF ondansetron 4 mg tablet,disintegrating 4 mg PO Q6H Qty: 14 0RF dicyclomine 20 mg tablet 20 mg PO BID Qty: 14 0RF Stand Alone Forms: Work/School Release Interventions: ED Discharge Assessment Last Done: 03/26/23 10:47 Discharge Date/Time: 03/26/23 10:47 Print Language: [place]
== END 2023-03-26 10:47 | disposition home or self-care (01) ==
PROVIDERS: Emergency Provider Emergency Medicine Emergency Medical Services
DX: J06.9 Acute upper respiratory infection, unspecified (principal); R50.9 Fever, unspecified; Z20.822 Contact with and (suspected) exposure to COVID-19; Z20.828 Contact with and (suspected) exposure to other viral communicable diseases; Z79.899 Other long term (current) drug therapy
CPT/HCPCS: 87502; 87635; 87651; 99282; 99283; 99284

== ENCOUNTER 2024-02-02 09:00 | Emergency (ER) | payer OTHER, SELFPAY ==
[2024-02-02 09:13] VITALS: BP 130/70; PULSE 92; RESP 16; TEMP 36.9; O2SAT 98; BMI 28.3
== END 2024-02-02 12:09 | disposition left against medical advice (07) ==
PROVIDERS: Emergency Provider Emergency Medicine
DX: N64.4 Mastodynia (principal)
CPT/HCPCS: 99281

== ENCOUNTER 2024-02-12 03:13 | Emergency (ER) | payer OTHER, SELFPAY ==
--- NOTE | ~2024-02-12 | US_ITS ---
EXAMINATION: US ABDOMEN LIMITED CLINICAL INFORMATION: Right upper quadrant pain. COMPARISON: None available. TECHNIQUE: Real-time imaging of the right upper quadrant abdominal viscera. FINDINGS: PANCREAS: The visualized portion of the pancreas head and body are normal, portion of the pancreatic body and tail, not visualized are obscured by bowel gas. LIVER: Normal. The liver is normal in size. The liver contour is normal. Parenchymal echogenicity is normal. No focal hepatic lesion. There is no intrahepatic biliary duct dilatation seen. GALLBLADDER: Thickening of the gallbladder wall, measuring up to 7 mm, small pericholecystic fluid collection combined with tenderness pressing on the gallbladder raising the possibility of acalculous cholecystitis. Common bile duct however is not dilated and there are no gallstones identified. COMMON BILE DUCT: Normal in caliber measuring 0.25 cm in diameter. US/US abdomen limited IMPRESSION: Gallbladder wall thickening and small pericholecystic fluid combined with tenderness pressing on the gallbladder raising the POSSIBILITY OF ACALCULOUS CHOLECYSTITIS. There are no gallstones however, and common bile duct is not dilated, recommend correlation with follow-up HIDA scan.
--- NOTE | ~2024-02-12 | CT_ITS ---
EXAMINATION: CT ABDOMEN AND PELVIS WITH CONTRAST CLINICAL INFORMATION: Vomiting COMPARISON: 2021 TECHNIQUE: Multidetector volumetric images were obtained from the superior aspect of the liver through the pubic symphysis following administration 85 mL of Omnipaque 350 intravenous contrast. Sagittal and coronal reformatted images were obtained on the technologist's workstation. Oral contrast: No This CT examination was performed using dose optimization techniques as appropriate, variously including the following: *Automated exposure control *Adjustment of mA and/or kV according to patient size (this includes techniques or standardized protocols for targeted exams where dose is matched to indication/reason for exam; i.e. extremities or head) *Use of iterative reconstruction technique DLP: 572 mGy-cm FINDINGS: LUNG BASES: The visualized lung bases are unremarkable. LIVER, GALLBLADDER, AND BILIARY TREE: The liver is normal in size, shape, and attenuation. No focal hepatic lesion or biliary ductal dilatation is present. The gallbladder is unremarkable with no evidence of radiopaque gallstones, gallbladder wall thickening, or obvious pericholecystic inflammatory changes. PANCREAS: Unremarkable. SPLEEN: Unremarkable. ADRENAL GLANDS: Unremarkable. KIDNEYS AND URETERS: The kidneys are normal in size, shape, and attenuation. No hydronephrosis, hydroureter, or calculi seen. No perinephric stranding. BLADDER: Unremarkable GASTROINTESTINAL TRACT: Small bowels unremarkable. Circumferential wall thickening of the entire colon, nonspecific CT finding however can be seen in patients with colitis. Pericolic fat is clear. ABDOMINAL WALL: No significant hernia is appreciated. LYMPH NODES: Normal. VASCULAR: Unremarkable. PELVIC VISCERA: Unremarkable. OSSEOUS STRUCTURES: Unremarkable. CT/CT abdomen pelvis w IV con IMPRESSION: 1. Circumferential wall thickening of the entire colon, nonspecific CT finding however can be seen in patients with colitis. Pericolic fat is clear. 2. No CT evidence of bowel obstruction. Fleischner guidelines were followed.
[2024-02-12 03:17] VITALS: BP 116/76; PULSE 57; O2SAT 95
[2024-02-12 03:41] VITALS: TEMP 36.4; BMI 34.5
[2024-02-12 03:43] LABS: MANUAL DIFF FLAG NO
[2024-02-12 03:58] LABS: Alanine Aminotransferase 12 U/L (0-31); Albumin Level 4.7 g/dL (3.5-5.0); Alkaline Phosphatase 63 U/L (39-117); Anion Gap 18 (12-20); Aspartate Amino Transferase 26 U/L (5-31); Bilirubin Total 0.3 mg/dL (0.0-1.0); Blood Urea Nitrogen 12 mg/dL (9-16); Calcium 10.2 mg/dL (8.4-10.2); Carbon Dioxide 20 mmol/L (22-29); Chloride 107 mmol/L (96-108); Creatinine Clr Calc Pharmacy 101.7; Estimated Glomerular Filt Rate > 60; Glucose Random 121 mg/dL (60-115); Lipase 24 U/L (8-78); Potassium 3.6 mmol/L (3.3-5.1); Sodium 141 mmol/L (135-145); Total Protein 7.9 g/dL (6.5-8.0)
[2024-02-12] MEDS: Ondansetron ODT 4 MG TAB.RAPDIS TRANSLINGU ×2 (04:01→07:34)
[2024-02-12 04:02] LABS: Basophils Absolute Auto 0.1 X10*3/uL (0.0-0.2); Basophils Percent Auto 0.4 % (0-2); Eosinophils Absolute Auto 0.1 X10*3/uL (0.0-0.4); Hemoglobin 11.9 g/dl (12.0-16.0); Imm Gran Abs Auto 0.05 X10*3/uL (0.00-0.03); Imm Gran Pct Auto 0.4 % (0.0-0.4); Lymphocytes Absolute Auto 1.7 X10*3/uL (1.2-4.9); Lymphocytes Percent Auto 13.3 % (20-40); Mean Corpuscular Hemoglobin 30.8 pg (27.0-33.0); Mean Corpuscular Volume 90.7 fL (80.0-98.0); Mean Platelet Volume 11.9 fL (9.4-12.3); Monocytes Absolute Auto 0.7 X10*3/uL (0.1-1.2); Monocytes Percent Auto 5.9 % (2-11); Neutrophils Absolute Auto 9.9 x10*3/uL (2.0-8.3); Platelet Count 244 X10*3/uL (160-400); Red Blood Count 3.86 X10*6/uL (4.20-5.50); Red Cell Distribution Width 13.7 % (11.0-16.0); White Blood Count 12.5 X10*3/uL (4.8-10.8)
[2024-02-12 05:39] VITALS: BP 122/70; PULSE 52; RESP 16; TEMP 36.6; O2SAT 98
--- NOTE | 2024-02-12 06:38 | ECG_ITS ---
Test Reason : ABDOMINAL PAIN Blood Pressure : / mmHG Vent. Rate : 048 BPM Atrial Rate : 048 BPM P-R Int : 122 ms QRS Dur : 106 ms QT Int : 476 ms P-R-T Axes : 029 -11 -09 degrees QTc Int : 425 ms Sinus bradycardia with marked sinus arrhythmia Incomplete right bundle branch block Borderline ECG No previous ECGs available Referred By: Mayuri Crisostomo Electronically Signed By:Jesse Cobb
--- NOTE | 2024-02-12 06:40 | ED_ITS ---
HPI - Abdominal Pain General Chief Complaint: Abdominal Pain Stated Complaint: abdominal pain Time Seen by Provider: 02/12/24 06:32 Source: patient and family Mode of arrival: ambulatory Limitations: no limitations History of Present Illness ED Provider: Mayuri Crisostomo APRN HPI narrative: This ia 23yo female with a PMH asthma here with complaints of upper abdominal pain with radiation to mid back with multiple episodes of NBNB since 11pm. No diarrhea, urinary symptoms. Last BM 3 days ago. LMP 5 days ago. Denies abdominal surgical history. Related Data Previous Rx's ?Medication ?Instructions ?Recorded cefuroxime axetil 500 mg tablet 500 mg PO BID 10 days #20 tabs 07/04/21 cyclobenzaprine 10 mg tablet 10 mg PO Q8H PRN Muscle spasm #14 07/04/21 tabs naproxen 500 mg tablet 500 mg PO BID PRN pain #10 tabs 07/04/21 dicyclomine 20 mg tablet 20 mg PO BID abdominal cramping 02/19/22 #14 tabs ondansetron 4 mg disintegrating 4 mg PO Q6H Nausea and vomiting 02/19/22 tablet #14 tabs ondansetron 4 mg disintegrating 4 mg PO Q6H PRN nausea and 02/12/24 tablet vomiting #20 tabs oxycodone 5 mg tablet 5 mg PO Q6H PRN pain #8 tabs 02/12/24 Allergies Allergy/AdvReac Type Severity Reaction Status Date / Time No Known Allergies Allergy Verified 02/12/24 03:43 [No Known Allergies*] Review of Systems Review of Systems Yes all other systems are reviewed and are negative Constitutional: Reports no additional constitutional complaints, Denies body ache(s), Denies chills, Denies fever(s), Denies headache(s) and Denies weakness Eyes: Reports no additional eye complaints and Denies change in vision Reports system reviewed and no additional complaints, except as documented, Denies dizziness, Denies headache(s), Denies nasal congestion, Denies nasal discharge and Denies neck pain Cardiovascular: Reports no additional cardiovascular complaints, Denies chest pain, Denies leg edema and Denies dyspnea Respiratory: Reports no additional respiratory complaints, Denies cough and Denies dyspnea Gastrointestinal: Reports no additional gastrointestinal complaints, Reports abdominal pain, Denies diarrhea, Reports nausea and Reports vomiting Genitourinary: Reports no additional female genitourinary complaints, Denies dysuria, Denies pelvic pain, Denies flank pain, Denies urinary incontinence, Denies urinary hesitancy, Denies urinary urgency and Denies vaginal discharge Musculoskeletal: Reports no additional musculoskeletal complaints, Denies back pain, Denies arthralgias, Denies joint swelling, Denies neck pain, Denies numbness and Denies tingling Skin/Breast: Reports system reviewed and no additional complaints, except as docu and Denies rash Reports system reviewed and no additional complaints, except as documented, Denies Abnormal speech present, Denies dizziness, Denies headache(s), Denies numbness, Denies tingling and Denies weakness PMFSH Past Medical History Attestation statement: The following information was validated with the patient. Source: old records reviewed and nursing notes reviewed Medical History Ovarian cyst Social History Social History Alcohol intake: current Alcohol intake frequency: holidays/special occasions only Smoked in Last 30 Days: No Use of substances other than those prescribed or required for medical reasons: Yes Substance Use Type: Marijuana Advance Directives: No Advance Directives Information Provided: Yes Do you have a plan to hurt others: No Plan Patient : No Physical Exam ED Vital Signs: Vital Signs - 24 hr 02/12/24 03:41 02/12/24 05:39 02/12/24 06:55 Temperature 97.6 F 97.8 F Pulse Rate 52 Respiratory Rate 16 18 Blood Pressure 122/70 Pulse Oximetry 98 Oxygen Delivery Method Room Air 02/12/24 09:42 Temperature 97.9 F Pulse Rate 124 H Respiratory Rate 18 Blood Pressure 110/83 Pulse Oximetry 97 Oxygen Delivery Method Room Air BMI result Body Mass Index 34.5 Const General: cooperative, healthy appearing, comfortable and no acute distress Orientation/consciousness: patient oriented x3 Limitations: no limitations HENMT Head: Yes normal to inspection Ears: hearing grossly normal bilaterally General nose exam: Normal external nose present Face and sinus: Yes normal facial exam Mouth: Normal oral and palatal mucosa present Throat: Yes posterior oropharynx normal Eyes General: appearance normal, both eyes and all related structures Pupils: Equal, round and reactive pupils present Neck Neck: Yes normal visual inspection Chest Chest palpation & inspection: normal inspection of the chest Resp Effort & Inspection: normal respiratory effort Auscultation: clear to auscultation bilaterally Cardio Rate: regular rate Rhythm: regular rhythm Peripheral pulses: Peripheral pulses 2+ throughout GI Inspection: Yes normal to inspection and No distended Palpation (GI): Soft to palpation, Tenderness to palpation present (GI) in the epigastrum; with no rebound tenderness and no guarding Auscultation: normal bowel sounds Back/Spine/Pelvis Thoracic/Lumbar Spine: thoracic and lumbar spine normal to inspection Skin General skin exam: no rashes or lesions noted Neuro General: patient oriented x3, no focal motor deficits and normal sensation to monofilament Cranial nerves: Yes Equal, round and reactive pupils present Cognition (Neuro): normal cognition Speech: No Abnormal speech present Gait exam (Neuro): Normal gait present Motor exam (neuro): 5/5 motor strength present throughout Extrem General: Yes normal to inspection Course Course Course Narrative: A CT is nonspecific for colitis. The patient with more epigastric and right upper quadrant pain on exam. Think this is likely not related to her CT finding. She is still complaining of abdominal pain but reports her nausea is improved. Will obtain abdominal US, provide additional analgesia Reevaluation(s) Reevaluation #1: Ultrasound shows gallbladder wall thickening and small pericholecystic fluid with some tenderness on exam. This may be consistent with acalculous cholecystitis. There are no gallstones. The common bile duct is normal. The patient's pain is well controlled. She is tolerating p.o.. I reviewed the findings with the patient. I will discharge her home and have her follow up with General surgery outpatient. I did review worrisome signs and symptoms with her and when to return to the emergency room. Comfortable plan for discharge home. Medical Decision Making Medical Decision Making [facility] Narrative: This ia? 23yo female with a PMH asthma here with complaints of upper abdominal pain with radiation to mid back with multiple episodes of NBNB since 11pm. No diarrhea, urinary symptoms. Last BM 3 days ago. LMP 5 days ago. Denies abdominal surgical history.? Epigastrum TTP with no rebound or guarding. +BS. VSS. Will obtain labs, UA, ur preg, EKG, CT A/P, provide analgesia Differential Diagnosis Differential Diagnoses: The differential diagnosis associated with the presentation includes acute laura/cholelithiasis, pancreatitis, ACS, GERD, gastritis Admission/Observation Consideration of admission/observation: Escalation of care including admission/observation considered Ultrasound shows possible acalculous cholecystitis. LFTs are normal. There is no evidence of gallstones or CBD stone. The patient's pain is controlled and she is tolerating p.o.. Therefore I will discharge her home and have her follow up outpatient with General surgery Lab Data MDM Lab Attestation statement: I reviewed the patient's lab results. 02/12/24 03:39 02/12/24 03:39 Labs: Lab Results 02/12/24 02/12/24 Range/Units 03:39 09:25 WBC 12.5 H (4.8-10.8) X10*3/uL RBC 3.86 L (4.20-5.50) X10*6/uL Hgb 11.9 L (12.0-16.0) g/dl Hct 35.0 L (37.0-47.0) % MCV 90.7 (80.0-98.0) fL MCH 30.8 (27.0-33.0) pg MCHC 34.0 (31.0-35.0) g/dl RDW 13.7 (11.0-16.0) % Plt Count 244 (160-400) X10*3/uL MPV 11.9 (9.4-12.3) fL Immature Gran % (Auto) 0.4 (0.0-0.4) % Neut % (Auto) 79.0 H (45-73) % Lymph % (Auto) 13.3 L (20-40) % [place] % (Auto) 5.9 (2-11) % Eos % (Auto) 1.0 (0-4) % Baso % (Auto) 0.4 (0-2) % Lymph # (Auto) 1.7 (1.2-4.9) X10*3/uL [place] # (Auto) 0.7 (0.1-1.2) X10*3/uL Eos # (Auto) 0.1 (0.0-0.4) X10*3/uL Baso # (Auto) 0.1 (0.0-0.2) X10*3/uL Abs Immat Gran (auto) 0.05 H (0.00-0.03) X10*3/uL Absolute Neuts (auto) 9.9 H (2.0-8.3) x10*3/uL Absolute Nucleated RBC 0.000 (0.0-0.012) X10*3/uL Nucleated RBC % (auto) 0.0 (0.0-0.2) /100WBC Sodium 141 (135-145) mmol/L Potassium 3.6 (3.3-5.1) mmol/L Chloride 107 (96-108) mmol/L Carbon Dioxide 20 L (22-29) mmol/L Anion Gap 18 (12-20) BUN 12 (9-16) mg/dL Creatinine 0.90 (0.5-1.4) mg/dL Estim Creat Clear Calc 101.7 Estimated GFR > 60 Random Glucose 121 H (60-115) mg/dL Calcium 10.2 D (8.4-10.2) mg/dL Total Bilirubin 0.3 (0.0-1.0) mg/dL AST 26 (5-31) U/L ALT 12 (0-31) U/L Alkaline Phosphatase 63 (39-117) U/L Troponin I High Sens < 2.7 (<3.5-17.0) ng/L Total Protein 7.9 (6.5-8.0) g/dL Albumin 4.7 (3.5-5.0) g/dL Lipase 24 (8-78) U/L Beta HCG, Quant < 2 mIU/mL Urine Color Yellow Urine Appearance Clear Urine pH 6.0 (5.0-9.0) Ur Specific [place] >= 1.030 H (1.005-1.025) Urine Protein Negative (Neg-Trace) mg/dL Urine Glucose (UA) Negative (Negative) mg/dL Urine Ketones 40 (Negative) mg/dL Urine Blood Moderate (2+) H (Negative) Urine Nitrite Negative (Negative) Ur Leukocyte Esterase Negative (Negative) Urine RBC >20 H (0-2) /HPF Urine WBC 6-10 H (0-5) /HPF Ur Squamous Epith Cells 3-5 (0-2) /HPF Urine Bacteria Trace (None Seen) Hyaline Casts 0-2 (0-2) /LPF Urine Test NEGATIVE (NEGATIVE) Independent Interpretation I performed an independent interpretation of an: EKG and CT Scan Interpretation: I independently reviewed the CT scan/US agree with the radiology report I independently reviewed the EKG which shows sinus bradycardia with a rate of 48, normal CT, normal QRS, or QT Radiology Impression Discussion of test interpretation with radiology: I have reviewed the radiologist's reading. Radiologist Impression: [address] [address] [address] Scan Report Signed Patient: Roc Selby MR#: [id number] : 2000 Acct:[id number] Age/Sex: 23 / F ADM Date: 02/12/24 Loc: HO.ED Attending Dr: Ordering Physician: Mayuri Soto NP Date of Service: 02/12/24 Procedure(s): CT abdomen pelvis w IV con Accession Number(s): [id number] cc: Physician,Unknown ; Mayuri Soto NP~ EXAMINATION: CT ABDOMEN AND PELVIS WITH CONTRAST CLINICAL INFORMATION: Vomiting COMPARISON: 2021 TECHNIQUE: Multidetector volumetric images were obtained from the superior aspect of the liver through the pubic symphysis following administration 85 mL of Omnipaque 350 intravenous contrast. Sagittal and coronal reformatted images were obtained on the technologist's workstation. Oral contrast: No This CT examination was performed using dose optimization techniques as appropriate, variously including the following: *Automated exposure control *Adjustment of mA and/or kV according to patient size (this includes techniques or standardized protocols for targeted exams where dose is matched to indication/reason for exam; i.e. extremities or head) *Use of iterative reconstruction technique DLP: 572 mGy-cm FINDINGS: LUNG BASES: The visualized lung bases are unremarkable. LIVER, GALLBLADDER, AND BILIARY TREE: The liver is normal in size, shape, and attenuation. No focal hepatic lesion or biliary ductal dilatation is present. The gallbladder is unremarkable with no evidence of radiopaque gallstones, gallbladder wall thickening, or obvious pericholecystic inflammatory changes. PANCREAS: Unremarkable. SPLEEN: Unremarkable. ADRENAL GLANDS: Unremarkable. KIDNEYS AND URETERS: The kidneys are normal in size, shape, and attenuation. No hydronephrosis, hydroureter, or calculi seen. No perinephric stranding. BLADDER: Unremarkable GASTROINTESTINAL TRACT: Small bowels unremarkable. Circumferential wall thickening of the entire colon, nonspecific CT finding however can be seen in patients with colitis. Pericolic fat is clear. ABDOMINAL WALL: No significant hernia is appreciated. LYMPH NODES: Normal. VASCULAR: Unremarkable. PELVIC VISCERA: Unremarkable. OSSEOUS STRUCTURES: Unremarkable. CT/CT abdomen pelvis w IV con IMPRESSION: 1. Circumferential wall thickening of the entire colon, nonspecific CT finding however can be seen in patients with colitis. Pericolic fat is clear. 2. No CT evidence of bowel obstruction. Fleischner guidelines were followed.[address] [address] Ultrasound Report Signed Patient: Roc Selby MR#: [id number] : 2000 Acct:[id number] Age/Sex: 23 / F ADM Date: 02/12/24 Loc: HO.ED Attending Dr: Ordering Physician: Mayuri Soto NP Date of Service: 02/12/24 Procedure(s): US abdomen limited Accession Number(s): [id number] cc: Physician,Unknown ; Mayuri Soto NP~ EXAMINATION: US ABDOMEN LIMITED CLINICAL INFORMATION: Right upper quadrant pain. COMPARISON: None available. TECHNIQUE: Real-time imaging of the right upper quadrant abdominal viscera. FINDINGS: PANCREAS: The visualized portion of the pancreas head and body are normal, portion of the pancreatic body and tail, not visualized are obscured by bowel gas. LIVER: Normal. The liver is normal in size. The liver contour is normal. Parenchymal echogenicity is normal. No focal hepatic lesion. There is no intrahepatic biliary duct dilatation seen. GALLBLADDER: Thickening of the gallbladder wall, measuring up to 7 mm, small pericholecystic fluid collection combined with tenderness pressing on the gallbladder raising the possibility of acalculous cholecystitis. Common bile duct however is not dilated and there are no gallstones identified. COMMON BILE DUCT: Normal in caliber measuring 0.25 cm in diameter. US/US abdomen limited IMPRESSION: Gallbladder wall thickening and small pericholecystic fluid combined with tenderness pressing on the gallbladder raising the POSSIBILITY OF ACALCULOUS CHOLECYSTITIS. There are no gallstones however, and common bile duct is not dilated, recommend correlation with follow-up HIDA scan. Independent Historian Clinical information obtained from an independent historian. History obtained from or confirmed by: Friend Medications Administered Discontinued Medications Generic Name Dose Route Start Last Admin Trade Name Damien PRN Reason Stop Dose Admin Al Hydroxide/Mg Hydroxide 30 ml 02/12/24 09:20 02/12/24 09:29 Magnesium Hydrox/Alum Hydrox 30 Ml Oral.Susp PO 02/12/24 09:21 30 ml ONCE ONE Administration Famotidine 20 mg 02/12/24 06:38 02/12/24 06:53 Famotidine/Pf 20 Mg/2 Ml Vial IVPUSH 02/12/24 06:39 20 mg ONCE ONE Administration Sodium Chloride 1,000 mls @ 999 mls/hr 02/12/24 06:39 02/12/24 09:44 Ns IV 02/12/24 07:39 Infused .Q1H1M STA Infusion Iohexol 100 ml 02/12/24 07:58 02/12/24 07:58 Iohexol 350 Mg/Ml 100 Ml Infus..Btl IV 02/12/24 07:59 85 ml ONCE ONE Administration Ketorolac Tromethamine 15 mg 02/12/24 09:20 02/12/24 09:29 Ketorolac Tromethamine 15 Mg/Ml Vial IVPUSH 02/12/24 09:21 15 mg ONCE ONE Administration Lidocaine HCl 15 ml 02/12/24 09:20 02/12/24 09:29 Lidocaine Hcl Viscous 2 % 15 Ml Solution MUCOUS MEM 02/12/24 09:21 15 ml ONCE ONE Administration Lorazepam 0.5 mg 02/12/24 09:55 02/12/24 10:07 Lorazepam 2 Mg/Ml Vial IVPUSH 02/12/24 09:56 0.5 mg STAT STA Administration Morphine Sulfate 4 mg 02/12/24 06:38 02/12/24 06:55 Morphine Sulfate 4 Mg/Ml Cartridge IVPUSH 02/12/24 06:39 4 mg ONCE ONE Administration Protocol Ondansetron HCl 4 mg 02/12/24 03:50 02/12/24 04:01 Ondansetron Odt 4 Mg Tab.Rapdis TRANSLINGU 02/12/24 03:51 4 mg ONCE ONE Administration Ondansetron HCl 4 mg 02/12/24 07:31 02/12/24 07:34 Ondansetron Odt 4 Mg Tab.Rapdis TRANSLINGU 05/25/24 07:32 4 mg ONCE ONE Administration Ondansetron HCl 4 mg 02/12/24 09:52 02/12/24 10:07 Ondansetron Hcl 4 Mg/2 Ml Vial IVPUSH 02/12/24 09:53 4 mg ONCE ONE Administration Discharge Plan Discharge Clinical Impression: Abdominal pain Patient Disposition: Home, Self-Care Instructions: Acute Abdominal Pain (ED) Additional Instructions: You have inflammation around her gallbladder. There are no gallstones seen. We do recommend he follow up outpatient with General surgery. You may need to have additional testing done. Please return for any worsening symptoms. Prescriptions: New ondansetron 4 mg tablet,disintegrating 4 mg PO Q6H PRN (Reason: nausea and vomiting) Qty: 20 0RF oxycodone 5 mg tablet 5 mg PO Q6H PRN (Reason: pain) Qty: 8 0RF Rx Instructions: Partial Fill upon patient request. No Action naproxen 500 mg tablet 500 mg PO BID PRN (Reason: pain) Qty: 10 0RF cyclobenzaprine 10 mg tablet 10 mg PO Q8H PRN (Reason: Muscle spasm) Qty: 14 0RF cefuroxime axetil 500 mg tablet 500 mg PO BID 10 Days Qty: 20 0RF ondansetron 4 mg tablet,disintegrating 4 mg PO Q6H Qty: 14 0RF dicyclomine 20 mg tablet 20 mg PO BID Qty: 14 0RF Referrals: Michael Knott MD [Physician] - 3 days Print Language: Hebrew
[2024-02-12] MEDS: 0.9 % Sodium Chloride 1,000 ML 999 ML IV (06:53)
[2024-02-12] MEDS: Famotidine/PF 20 MG/2 ML VIAL IVPUSH (06:53)
[2024-02-12 06:55] VITALS: RESP 18
[2024-02-12] MEDS: Morphine Sulfate 4 MG/ML CARTRIDGE IVPUSH (06:55)
[2024-02-12 07:02] LABS: Troponin-I High Sensitivity < 2.7 ng/L (<3.5-17.0)
[2024-02-12 07:04] LABS: HCG Quantitative < 2 mIU/mL
--- NOTE | 2024-02-12 07:29 | PC.NURSE ---
pt to CT at this time.
--- NOTE | 2024-02-12 07:34 | PC.NURSE ---
pt actively vomiting into emesis bag while being transported to CT. one time dose of zofran ordered/administered. effectiveness pending. will resume care of pt when pt returns from CT.
[2024-02-12] MEDS: iohexoL 350 MG/ML 100 ML INFUS..BTL IV (07:58)
[2024-02-12] MEDS: Lidocaine HCl Viscous 2 % 15 ML SOLUTION MUCOUS MEM (09:29)
[2024-02-12] MEDS: Magnesium Hydrox/Alum Hydrox 30 ML ORAL.SUSP PO (09:29)
[2024-02-12] MEDS: Ketorolac Tromethamine 15 MG/ML VIAL IVPUSH (09:29)
[2024-02-12 09:32] LABS: Appearance Urine Clear; Color Urine Yellow; Glucose Urine UA Negative (Negative); Leukocyte Esterase Urine Negative (Negative); Nitrite Urine Negative (Negative); Specific Gravity - Urine >= 1.030 (1.005-1.025); UMIC TRIGGER UACC YES; Urine Blood Moderate (2+) (Negative); Urine Ketones 40 mg/dL (Negative); Urine Protein Negative (Neg-Trace)
--- NOTE | 2024-02-12 09:32 | PC.NURSE ---
vss and up to date. ekg performed by tech. UA obtained/sent to lab. medication administered per provider order. effectiveness pending. pt aware of CT results/that US abd was ordered. respirations remain even and unlabored. plan of care ongoing. call ayers placed within reach.
[2024-02-12 09:34] LABS: UPreg QC Valid YES; Urine Pregnancy NEGATIVE (NEGATIVE)
[2024-02-12 09:35] LABS: Bacteria Urine Trace (None Seen); Hyaline Casts Urine 0-2 /LPF (0-2); RBC Urine >20 /HPF (0-2); UACC Culture Trigger YES
[2024-02-12 09:42] VITALS: BP 110/83; PULSE 124; RESP 18; TEMP 36.6; O2SAT 97
--- NOTE | 2024-02-12 09:49 | PC.NURSE ---
US being completed at this time.
[2024-02-12] MEDS: LORazepam 2 MG/ML VIAL 0.5 MG IVPUSH (10:07)
[2024-02-12] MEDS: ondansetron HCL 4 MG/2 ML VIAL IVPUSH (10:07)
--- NOTE | 2024-02-12 10:10 | PC.NURSE ---
pt medicated per provider order.
[2024-02-12 12:36] VITALS: BP 110/83; PULSE 124; RESP 18; TEMP 36.6; O2SAT 97
== END 2024-02-12 12:36 | disposition home or self-care (01) ==
PROVIDERS: Emergency Medicine; Nurse Practitioner Family; Emergency Provider Student in an Organized Health Care Education/Training Program
DX: R10.11 Right upper quadrant pain (principal)
CPT/HCPCS: 36415; 74177; 76705; 80053; 81001; 81025; 83690; 84484; 84702; 85025; 87086; 93005; 96361; 96374; 96375; 99285; J1885; J2060; J2270; J2405; Q9967

== ENCOUNTER → 2024-02-12 06:38 | Outpatient (BNV) | payer OTHER, SELFPAY | PROVIDERS: Emergency Provider Student in an Organized Health Care Education/Training Program; Visit Provider Internal Medicine Cardiovascular Disease | DX: R00.1 Bradycardia, unspecified (principal) | CPT/HCPCS: 93010 ==

== ENCOUNTER 2024-02-17 10:50 | Outpatient (AMB) | payer OTHER, SELFPAY ==
--- NOTE | 2024-02-17 10:51 | A.OFFVIS_ITS ---
Intake Visit Reasons: cholecystitis Intake Note: [place] [facility] for cholecystit[place]. Patient c/o; reports loss of appetite, reports last good meal she was able to tolerate was last Wednesday02/11/2024, reports no RUQ pain at this time, reports took tylenol and ibuprofen for the pain for x2 days. 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 She went to the ER last February 11, 2024 because of what she describes as multiple episodes of vomiting with nausea, in upper abdominal pain. She does state that she thought that her pain was mostly in the left side than on the right. She underwent a CT scan which was unremarkable except for a question of colitis. She had an ultrasound showing what appeared to be thickening of the gallbladder wall but no gallstones were seen. She was therefore referred to me for this. She says she does not have any right upper quadrant tenderness at all. She actually pointed to the left lower ribs where she is now having some pain. She says that she has had no vomiting or diarrhea. [facility] Medical History (Updated 02/17/24 @ 11:10 by Michael Knott MD) Abnormal abdominal ultrasound Ovarian cyst Social History Alcohol intake: current Alcohol intake frequency: holidays/special occasions only Substance Use Type: Marijuana Review of Systems Const Denies chills and Denies fever(s) Card Denies chest pain, Denies dyspnea and Denies dyspnea on exertion Resp Denies cough, Denies dyspnea and Denies dyspnea on exertion GI Denies hematochezia and Denies change in bowel habits Denies hematuria Musc Denies back pain and Denies limited range of motion Neuro Denies focal weakness and Denies convulsions Psych Denies depression and Denies mood swings Physical Exam Const General: comfortable and no acute distress Orientation/consciousness: patient oriented x3 Neck Neck: Yes no lymphadenopathy Chest Other: Has point tenderness on the lower most ribs on the left Resp Auscultation: clear to auscultation bilaterally Cardio Rhythm: regular rhythm GI Other: No Dutton's sign Palpation (GI): Soft to palpation, nontender and no guarding Neuro General: patient oriented x3 Assessment & Plan Assessment & Plan (1) Abnormal abdominal ultrasound: Code(s): R93.5 - Abnormal findings on diagnostic imaging of other abdominal regions, including retroperitoneum Category: Medical Plan: She had vomiting, upper abdominal pain last week and she had an ultrasound in the ER showing a thickened gallbladder wall but without any gallstones. She says that she had never had any right upper quadrant pain or tenderness. Current exam does not suggest any gallbladder disease. She actually does have some point tenderness on the lower most left ribs anteriorly. I explained to her that clinically, her symptoms are not suggestive of gallbladder disease at this time. I would hold off on HIDA scan for biliary dyskinesia. However, I will see her again in the office in about 2 weeks to see how she is doing. I have recommended for her to take some anti-inflammatories for her lower rib pain. Her exam is otherwise unremarkable currently with no significant tenderness. She does not have any primary care physician at this time so we will assist her with establishing a relationship with 1 of our doctors. Coding Level of Care Code New Pt Level 3 (65729) Diagnoses Abnormal abdominal ultrasound R93.5
== END 2024-02-17 11:14 | disposition home or self-care (01) ==
PROVIDERS: Visit Provider Surgery
DX: R93.5 Abnormal findings on diagnostic imaging of other abdominal regions, including retroperitoneum (principal)
CPT/HCPCS: 99203

== ENCOUNTER → 2024-02-17 10:50 | Outpatient (BNVA) | payer OTHER, SELFPAY | PROVIDERS: Visit Provider Surgery ==

== ENCOUNTER 2024-03-02 08:54 | Outpatient (AMB) | payer OTHER, SELFPAY ==
--- NOTE | 2024-03-02 09:00 | MHC.OFFVIS ---
Vital Signs 03/02/24 09:06 Height 5 ft 3 in Weight 156 lb 8.451 oz BMI 27.7 BP 111/58 L Blood Pressure Location Lt brachial Position Sitting Pulse 56 Intake Visit Reasons: s/p cholecystitis Intake Note: Roc presents in the office as a follow up cholecystitis. CC: She states that they are questioning have her gall bladder removed. She has not had pains since the last time and she states that she has been following the diet Dr Knott gave her. Both ribs still having pains. 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 I would seen her 2 weeks ago because of an ER visit with an ultrasound showing some thickening of the gallbladder without other signs of cholecystitis. Her overall clinical picture was not consistent with gallbladder disease at that time. Her pain was not in the right upper quadrant. She did not have any gallstones. She did have tenderness on the lower most ribs suggestive of costochondritis. She continues to do well. She denies any right upper quadrant pain. She has good oral intake. She says that she feels that her ribs on both sides seemed to be engraver tender. She takes ibuprofen for this periodically. [facility] Medical History Abnormal abdominal ultrasound Ovarian cyst Social History Alcohol intake: current Alcohol intake frequency: holidays/special occasions only Substance Use Type: Marijuana Review of Systems Const Denies chills and Denies fever(s) Card Denies chest pain, Denies dyspnea and Denies dyspnea on exertion Resp Denies cough, Denies dyspnea and Denies dyspnea on exertion GI Denies hematochezia and Denies change in bowel habits Denies hematuria Musc Denies back pain and Denies limited range of motion Neuro Denies focal weakness and Denies convulsions Psych Denies depression and Denies mood swings Physical Exam Vital Signs: Last Vital Signs Pulse 56 03/02/24 09:06 BP 111/58 L 03/02/24 09:06 BMI result Body Mass Index 27.7 Const General: comfortable and no acute distress Eyes Sclerae: sclerae normal Resp Effort & Inspection: normal respiratory effort GI Palpation (GI): Soft to palpation, not firm, nontender and no guarding Assessment & Plan Assessment & Plan (1) Abnormal abdominal ultrasound: Code(s): R93.5 - Abnormal findings on diagnostic imaging of other abdominal regions, including retroperitoneum Category: Medical Plan: Again, overall clinical picture does not suggest gallbladder disease. She does not have any pain or tenderness on the abdomen or on the right upper quadrant. She denies GI complaints. She has good oral intake. She does have some tenderness on the lower most ribs suggestive of costochondritis and she takes ibuprofen for this I did explain to her that she does not seem to require any surgical intervention at this time I instructed her to follow-up in the office on a p.r.n. basis if she has any abdominal complaints. She was comfortable with the plan. Coding Level of Care Code Est Pt Level 3 (88724) Diagnoses Abnormal abdominal ultrasound R93.5
[2024-03-02 09:06] VITALS: BP 111/58; PULSE 56; BMI 27.7
== END 2024-03-02 09:17 | disposition home or self-care (01) ==
PROVIDERS: Visit Provider Surgery
DX: R93.5 Abnormal findings on diagnostic imaging of other abdominal regions, including retroperitoneum (principal)
CPT/HCPCS: 99213

== ENCOUNTER → 2024-03-02 08:54 | Outpatient (BNVA) | payer OTHER, SELFPAY | PROVIDERS: Visit Provider Surgery ==

== ENCOUNTER 2024-03-08 14:28 | Outpatient (AMB) | payer OTHER, SELFPAY ==
--- NOTE | 2024-03-08 14:35 | A.OFFPC_ITS ---
Vital Signs 03/08/24 14:41 Height 5 ft 2.6 in Weight 156 lb 8 oz BMI 28.1 BP 98/56 L Blood Pressure Location Lt brachial Position Sitting Respiration 12 Pulse 72 Pulse Source Pulse Oximeter Temp 99.2 F Temp Source Oral Pulse Oximetry (%) 99 Oxygen Delivery Method Room Air Intake Visit Reasons: Establish Care recently in the hospital. 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 HPI Details Patient is a 23-year-old female who presents today to establish care. She complains today that she often feels dizzy and tired. She states that her dizziness is a lightheaded sensation feeling like she could faint. She states sometimes she feels like her blood sugar drops low and makes her feel shaky. She will drink OJ and it will feel better. She wonders if it is related to low blood sugars or developing diabetes. She states that it happened over the weekend and her blood sugar was in the 60s and then she went and ate something and it felt better. She checked her blood sugar because her [id number] is a diabetic and had a glucometer with her. Patient states that she does have a f amily history of diabetes and almost everyone in her family has type 2 diabetes. At times her mouth feels really dry so she does drink a lot of fluid. Her diet is high in carbohydrates. She does eat processed foods. States that it is hard to eat consistently and healthy because she lacks an appetite at times. She will also get nauseous if she does not smoke marijuana. She states that she smo kes marijuana in the day and evening. Her blood pressure is a bit on the lower side today and she states that she tries to stay well hydrated but probably could drink a little bit more fluid. The dizziness also gets worse in the heat. She does not drink electrolytes. No chest pain, shortness a breath or palpitations. No syncope. She does get lightheaded while standing up out of bed in the morning. Overall the dizziness is worse in the morning but can happen at any time. She feels tired all the time and wonders if it is her anemia. She has a history of heavy and long periods. 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 How often do you have a drink containing alcohol?: Never (past) 3. How often do you have six or more drinks on one occasion?: Never Total Score: 0 Physical exam (Primary Care) Vital Signs: Last Vital Signs Temp 99.2 F 03/08/24 14:41 Pulse 72 03/08/24 14:41 Resp 12 03/08/24 14:41 BP 98/56 L 03/08/24 14:41 Pulse Ox 99 03/08/24 14:41 Oxygen Delivery Method Room Air 03/08/24 14:41 BMI result Body Mass Index 28.1 Tobacco/Smoking Status: Tobacco use Status Tobacco use date assessed 03/08/24 03/08/24 14:47 Patient Tobacco Use Status Never used Tobacco 03/08/24 14:47 e-Cigarette/Vaping Use Currently Using 03/08/24 14:47 Const Orientation/consciousness: patient oriented x3 HENMT Ears: hearing grossly normal bilaterally and TM's normal bilaterally Face and sinus: Yes sinuses nontender Neck Thyroid: Thyroid normal Lymphatic: no lymphadenopathy noted Resp Auscultation: clear to auscultation bilaterally Cardio Rate: regular rate Rhythm: regular rhythm Heart sounds: S1 normal heart sound present and S2 normal heart sound present GI Inspection: Yes normal to inspection Palpation (GI): Soft to palpation and Other GI palpation findings present (nontender, no cva tenderness) Auscultation: normoactive bowel sounds Skin General skin exam: no rashes or lesions noted Neuro General: patient oriented x3, gait normal, no focal motor deficits, CN's II-XI intact bilaterally and deep tendon reflexes 2+ bilaterally Gait exam (Neuro): Normal gait present Motor exam (neuro): 5/5 motor strength present throughout Coordination: [id number] test normal Romberg Test: Negative Results Reviewed Results Reviewed: Laboratory Tests 02/12/24 03:39 WBC 12.5 H RBC 3.86 L Hgb 11.9 L Hct 35.0 L Plt Count 244 Sodium 141 Potassium 3.6 Chloride 107 Carbon Dioxide 20 L Anion Gap 18 BUN 12 Creatinine 0.90 Estim Creat Clear Calc 101.7 Estimated GFR > 60 Random Glucose 121 H Total Bilirubin 0.3 AST 26 ALT 12 Alkaline Phosphatase 63 Beta HCG, Quant < 2 Assessment and Plan Assessment & Plan (1) Lightheaded: Code(s): R42 - Dizziness and giddiness Plan: labs ordered today ekg reviewed orthostats wnl discussed hydration and diet changes (2) Polydipsia: Code(s): R63.1 - Polydipsia Plan: labs ordered (3) Fatigue: Code(s): R53.83 - Other fatigue Qualifiers: Fatigue type: unspecified Qualified Code(s): R53.83 - Other fatigue Plan: as above Orders: Orders Complete Blood Count Auto Diff Today R42 - Dizziness and giddiness, R53.83 - Other fatigue, R63.1 - Polydipsia TSH reflex Free T4 Today R42 - Dizziness and giddiness, R53.83 - Other fatigue, R63.1 - Polydipsia Hemoglobin A1c Today R42 - Dizziness and giddiness, R53.83 - Other fatigue, R63.1 - Polydipsia Insulin Today R42 - Dizziness and giddiness, R53.83 - Other fatigue, R63.1 - Polydipsia Comprehensive Moody. Panel Fast Today R42 - Dizziness and giddiness, R53.83 - Other fatigue, R63.1 - Polydipsia Ferritin Today R42 - Dizziness and giddiness, R53.83 - Other fatigue, R63.1 - Polydipsia Lipid Panel Today R42 - Dizziness and giddiness, R53.83 - Other fatigue, R63.1 - Polydipsia Vitamin B12 and Folate Today R42 - Dizziness and giddiness, R53.83 - Other fatigue, R63.1 - Polydipsia Coding Level of Care Code New Pt Level 4 (63327) Complex EM visit Add On G2211 Diagnoses Lightheaded R42 Polydipsia R63.1 Fatigue, unspecified type R53.83 Fatigue type: unspecified
[2024-03-08 14:41] VITALS: BP 98/56; PULSE 72; RESP 12; TEMP 37.3; O2SAT 99; BMI 28.1
== END 2024-03-08 15:56 | disposition home or self-care (01) ==
PROVIDERS: PCP Physician Assistant; Visit Provider Physician Assistant
DX: R42 Dizziness and giddiness (principal); R63.1 Polydipsia; R53.83 Other fatigue
CPT/HCPCS: 99204; G2211

== ENCOUNTER 2024-03-28 09:18 | Outpatient (REF) | payer OTHER, SELFPAY ==
[2024-03-28 09:33] LABS: MANUAL DIFF FLAG NO
[2024-03-28 10:20] LABS: Basophils Percent Auto 0.5 % (0-2); Eosinophils Absolute Auto 0.2 X10*3/uL (0.0-0.4); Eosinophils Percent Auto 3.9 % (0-4); Hematocrit 35.9 % (37.0-47.0); Hemoglobin 11.7 g/dl (12.0-16.0); Imm Gran Abs Auto 0.01 X10*3/uL (0.00-0.03); Imm Gran Pct Auto 0.2 % (0.0-0.4); Lymphocytes Percent Auto 35.4 % (20-40); Mean Corpuscular HGB Conc 32.6 g/dl (31.0-35.0); Mean Corpuscular Hemoglobin 30.2 pg (27.0-33.0); Mean Corpuscular Volume 92.8 fL (80.0-98.0); Mean Platelet Volume 12.2 fL (9.4-12.3); Monocytes Absolute Auto 0.4 X10*3/uL (0.1-1.2); Monocytes Percent Auto 6.5 % (2-11); Neutrophils Percent Auto 53.5 % (45-73); Platelet Count 204 X10*3/uL (160-400); Red Blood Count 3.87 X10*6/uL (4.20-5.50); Red Cell Distribution Width 13.6 % (11.0-16.0); White Blood Count 5.7 X10*3/uL (4.8-10.8)
[2024-03-28 10:34] LABS: Estimated Average Glucose 103 mg/dL; Hemoglobin A1c % 5.2 % (<6.0)
[2024-03-28 11:15] LABS: Alanine Aminotransferase 8 U/L (0-31); Albumin Level 4.3 g/dL (3.5-5.0); Alkaline Phosphatase 63 U/L (39-117); Anion Gap 11 (12-20); Aspartate Amino Transferase 21 U/L (5-31); Bilirubin Total 0.3 mg/dL (0.0-1.0); Blood Urea Nitrogen 12 mg/dL (9-16); Calcium 9.4 mg/dL (8.4-10.2); Carbon Dioxide 25 mmol/L (22-29); Chloride 107 mmol/L (96-108); Cholesterol 110 mg/dL (<200); Estimated Glomerular Filt Rate > 60; Glucose Fasting 88 mg/dL (60-99); HDL Cholesterol 42 mg/dL (>40); LDL Cholesterol Calculated 59 mg/dL (<100); Potassium 3.5 mmol/L (3.3-5.1); Sodium 139 mmol/L (135-145); Total Protein 7.2 g/dL (6.5-8.0); Triglycerides 45 mg/dL (<150)
[2024-03-28 11:33] LABS: Ferritin 25 ng/mL (10-122); TSH reflex Free T4 2.21 uIU/mL (0.32-4.0)
[2024-03-28 11:39] LABS: Folate 6.8 ng/mL (> or = 4.0); Vitamin B12 291 pg/mL (200-900)
[2024-03-28 12:12] LABS: Insulin 9 uU/mL (2-29)
== END 2024-03-28 09:19 | disposition home or self-care (01) ==
LOC: HO.LAB 09:18
PROVIDERS: PCP Physician Assistant; Visit Provider Physician Assistant
DX: R63.1 Polydipsia (principal); R53.83 Other fatigue; R42 Dizziness and giddiness; Z13.1 Encounter for screening for diabetes mellitus
CPT/HCPCS: 36415; 80053; 80061; 82607; 82728; 82746; 83036; 83525; 84443; 85025

== ENCOUNTER 2024-03-29 14:16 | Outpatient (AMB) | payer OTHER, SELFPAY ==
--- NOTE | 2024-03-29 14:24 | A.OFFPC_ITS ---
Vital Signs 03/29/24 14:28 Height 5 ft 2.6 in Weight 155 lb 8 oz BMI 27.9 BP 108/70 Blood Pressure Location Lt brachial Position Sitting Pulse 64 Pulse Source Pulse Oximeter Pulse Oximetry (%) 99 Oxygen Delivery Method Room Air Intake Visit Reasons: dizziness recheck. Intake Note: Follow up dizziness. Believes sugar was low two weeks ago. Was experiencing nausea and sweating. Has not gotten a glucose machine yet. It Analyst Required: No Allergies No Known Allergies [No Known Allergies*] Allergy (Verified 03/08/24 14:38) Medication List - Last Reconciled 03/29/24 by Kamila Murdock PA-C No Known Home Meds Tobacco use date assessed: 03/08/24 Dental Screening Dental Screen Date: 03/08/24 HPI dizziness recheck. HPI Details Patient is a 23-year-old female who presents today for a follow up. She states that she is still feeling dizzy at times. It seems to happen out of nowhere. She thought maybe it was related to her blood sugar but since seeing her labs she wonders if it is related to something else. She has been trying to be well hydrated. She states the other day she was sitting at the kitchen table when all of a sudden she felt flushed and like she was going to faint. She states that she got nauseous and felt very sweaty. Her brother had to get her a glass of water, a cool rag and a spoonful of sugar. She states within 10 minute she did feel better but she had to lay down. She did not lose consciousness. She denies any headache, vision changes, paresthesias. No abnormal gait. Her labs do show that she does have a mild anemia. She has a history of heavy and long periods. 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 [employer] Current occupational exposures/hazards: No Cognitive needs: No Hearing needs: No Vision needs: Yes (glasses ) Physical exam (Primary Care) Vital Signs: Last Vital Signs Pulse 64 03/29/24 14:28 BP 108/70 03/29/24 14:28 Pulse Ox 99 03/29/24 14:28 Oxygen Delivery Method Room Air 03/29/24 14:28 BMI result Body Mass Index 27.9 Tobacco/Smoking Status: Tobacco use Status Tobacco use date assessed 03/08/24 03/29/24 14:26 Patient Tobacco Use Status Never used Tobacco 03/29/24 14:26 e-Cigarette/Vaping Use Currently Using 03/29/24 14:26 Const Orientation/consciousness: patient oriented x3 HENMT Ears: hearing grossly normal bilaterally Neck Thyroid: Thyroid normal Lymphatic: no lymphadenopathy noted Resp Auscultation: clear to auscultation bilaterally Cardio Rate: regular rate Rhythm: regular rhythm Heart sounds: S1 normal heart sound present and S2 normal heart sound present GI Inspection: Yes normal to inspection Palpation (GI): Soft to palpation and Other GI palpation findings present (nontender, no cva tenderness) Auscultation: normoactive bowel sounds Rectal Exam - Female: deferred Skin General skin exam: no rashes or lesions noted Neuro General: patient oriented x3, gait normal and no focal motor deficits Results Reviewed Results Reviewed: Laboratory Tests 03/28/24 09:30 WBC 5.7 RBC 3.87 L Hgb 11.7 L Hct 35.9 L Plt Count 204 Sodium 139 Potassium 3.5 Chloride 107 Carbon Dioxide 25 Anion Gap 11 L BUN 12 Creatinine 0.76 Estimated GFR > 60 Fasting Glucose 88 Hemoglobin A1c % 5.2 Insulin Level 9 Calcium 9.4 D Ferritin 25 AST 21 ALT 8 Triglycerides 45 Cholesterol 110 LDL Cholesterol, Calc 59 HDL Cholesterol 42 Vitamin B12 291 Folate 6.8 TSH 2.21 Assessment and Plan Assessment & Plan (1) Pre-syncope: Code(s): R55 - Syncope and collapse Plan: Holter monitor and echo ordered. We will follow up pending test results. (2) Anemia: Code(s): D64.9 - Anemia, unspecified Plan: We will start her on B12 and iron. Follow up in 4 weeks. Repeat labs prior to appointment. Plan She will follow up sooner if needed. Orders: Orders ECG holter monitor 24 hour Today R55 - Syncope and collapse CA echo transthoracic complete Today R55 - Syncope and collapse Complete Blood Count Auto Diff 3 Weeks D64.9 - Anemia, unspecified, R55 - Syncope and collapse Vitamin B12 and Folate Today D64.9 - Anemia, unspecified, R55 - Syncope and collapse Ferritin Today D64.9 - Anemia, unspecified, R55 - Syncope and collapse IRON PROFILE Today D64.9 - Anemia, unspecified, R55 - Syncope and collapse Medications: New mecobalamin (vitamin B12) place tablet under tongue and allow to dissolve for at least30 secs before swallowing 1,000 mcg sublingual DAILY 90 tabs 0RF ferrous fumarate 324 mg PO DAILY 90 tabs 0RF Coding Level of Care Code Est Pt Level 4 (84831) Complex EM visit Add On G2211 Diagnoses Pre-syncope R55 Anemia D64.9
[2024-03-29 14:28] VITALS: BP 108/70; PULSE 64; O2SAT 99; BMI 27.9
== END 2024-03-29 14:57 | disposition home or self-care (01) ==
PROVIDERS: PCP Physician Assistant; Visit Provider Physician Assistant
DX: R55 Syncope and collapse (principal); D64.9 Anemia, unspecified
CPT/HCPCS: 99214; G2211

== ENCOUNTER 2024-04-10 09:00 | Emergency (ER) | payer OTHER, SELFPAY ==
--- NOTE | ~2024-04-10 | XR_ITS ---
EXAMINATION: XR CHEST CLINICAL INFORMATION: Chest pain. COMPARISON: February 19, 2022 TECHNIQUE: Frontal view of the chest was obtained. FINDINGS: There is no gross pneumothorax. Heart size is normal. No pleural effusion. Possible pulmonary nodule versus prominent nipple shadow overlying the anterior aspect of the right sixth rib. Repeat view after placement of nipple markers recommended for further assessment. XR/XR chest 1V IMPRESSION: Possible pulmonary nodule versus prominent nipple shadow overlying the anterior aspect of the right sixth rib. Repeat view after placement of nipple markers recommended for further assessment. This study was presented today April 10, 2024 for interpretation. Stat results provided at this time as requested by referring provider.
[2024-04-10 09:12] VITALS: BP 125/78; PULSE 63; O2SAT 97; BMI 34.9
--- NOTE | 2024-04-10 09:13 | ECG_ITS ---
Test Reason : chest pain Blood Pressure : / mmHG Vent. Rate : 058 BPM Atrial Rate : 058 BPM P-R Int : 136 ms QRS Dur : 112 ms QT Int : 438 ms P-R-T Axes : 048 -28 012 degrees QTc Int : 429 ms Sinus bradycardia with marked sinus arrhythmia Incomplete right bundle branch block Borderline ECG When compared with ECG of 12-FEB-2024 09:24, T wave inversion no longer evident in Anterior leads Referred By: Donald Corcoran Electronically Signed By:COLTEN TORRES
--- NOTE | 2024-04-10 09:14 | ED_ITS ---
HPI - Nausea/Vomiting/Diarrhea General Chief complaint: Nausea/Vomiting/Diarrhea Stated complaint: n/v/d Time Seen by Provider: 04/10/24 09:03 Source: patient Mode of arrival: EMS Limitations: no limitations History of Present Illness HPI Narrative: This is a 23 years old patient presented to the emergency department with a she is complaining nausea vomiting and diarrhea also chest pain. She states she woke up this morning at 06:30 she felt dizzy she vomited she had diarrhea at the same time chest pain she called 911. She arrived by ambulance her main complaint is nausea right now, she received Zofran already by EMS MD elicited complaint: nausea, vomiting and diarrhea Onset (ago): hour(s) (3) Description of vomiting: watery Associated nausea: Yes Associated abdominal pain: No Location of pain: none Related Data Previous Rx's ?Medication ?Instructions ?Recorded ferrous fumarate 324 mg (106 mg 324 mg PO DAILY #90 tabs 03/29/24 iron) tablet mecobalamin (vitamin B12) 1,000 1,000 mcg sublingual DAILY #90 tabs 03/29/24 mcg disintegrating tablet,sublingual ondansetron 4 mg disintegrating 4 mg PO Q8H 4 days #12 tabs 04/10/24 tablet Allergies Allergy/AdvReac Type Severity Reaction Status Date / Time No Known Allergies Allergy Verified 04/10/24 09:18 [No Known Allergies*] Review of Systems 2 Gastrointestinal: Gastrointestinal: Reports nausea and Reports vomiting Integumentary/Breasts: Skin/Breast: Reports system reviewed and no additional complaints, except as docu PMFSH Past Medical History [facility] Narrative: Denies any major medical problem Medical History Abnormal abdominal ultrasound Ovarian cyst Social History Social History Housing: Apartment Alcohol intake: current Alcohol intake frequency: holidays/special occasions only Patient Tobacco Use Status: Never used Tobacco Smoked in Last 30 Days: No e-Cigarette/Vaping Use: Currently Using Second Hand Smoke Exposure: No Use of substances other than those prescribed or required for medical reasons: Yes Substance Use Type: Marijuana Substance Use Frequency: Daily Last Used Substance: Hours (ago) Any prior treatment program specific to substance use: No Advance Directives: No Advance Directives Information Provided: No Do you have a plan to hurt others: No Plan service: No Current occupational status: employed 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 [employer] Current occupational exposures/hazards: No Cognitive needs: No Hearing needs: No Vision needs: Yes (glasses ) Physical Exam 2 Vital Signs: Vital Signs: Last Vital Signs Temp 97.9 F 04/10/24 12:18 Pulse 47 L 04/10/24 12:18 Resp 14 04/10/24 12:18 BP 101/42 L 04/10/24 12:18 Pulse Ox 100 04/10/24 12:18 O2 Del Method Room Air 04/10/24 12:18 BMI result Body Mass Index 34.9 Const: General: cooperative, comfortable and no acute distress Nutritional Appearance: average body habitus Orientation/consciousness: patient oriented x3 Limitations: no limitations HEENT: Head: Yes normal to inspection Ears: hearing grossly normal bilaterally Face and sinus: Yes normal facial exam Neck: Neck: Yes normal visual inspection Chest: Chest palpation & inspection: normal inspection of the chest Resp: Effort & Inspection: normal respiratory effort Auscultation: clear to auscultation bilaterally Cardio: Jugular venous distension: no JVD Rate: regular rate Rhythm: r egular rhythm GI: Inspection: Yes normal to inspection Palpation (GI): not firm and nontender Skin: General skin exam: no rashes or lesions noted, elasticity normal and turgor normal Lesions: no lesions Rashes: no rashes Neuro: General: patient oriented x3 Cranial nerves: Yes CN's II-XII intact bilaterally Course Reevaluation(s) Reevaluation #1: Re-examined at 13:00 doing much better tolerated p.o. well labs okay I think at this point she can be safely discharged home she can follow-up with the primary care physician she is comfortable with the plan Time: 13:01 Medications Administered Generic Name Dose Route Start Last Admin Trade Name Freq PRN Reason Stop Dose Admin Sodium Chloride 1,000 mls @ 999 mls/hr 04/10/24 12:45 04/10/24 12:39 Ns IVCONT 04/10/24 13:45 999 mls/hr .Q1H1M GAGE Administration Discontinued Medications Generic Name Dose Route Start Last Admin Trade Name Freq PRN Reason Stop Dose Admin Sodium Chloride 1,000 mls @ 999 mls/hr 04/10/24 09:15 04/10/24 12:39 Ns IVCONT 04/10/24 10:15 Infused .Q1H1M GAGE Infusion Medical Decision Making Medical Decision Making [facility] Narrative: Patient presented with nausea vomiting diarrhea will get labs administer IV fluid antiemetic Differential Diagnosis Differential Diagnoses: The differential diagnosis associated with the presentation includes Gastroenteritis/colitis/diverticulitis Admission/Observation Consideration of admission/observation: Escalation of care including admission/observation considered Lab Data [facility] Lab Attestation statement: I reviewed the patient's lab results. 04/10/24 09:34 04/10/24 09:34 Labs: Lab Results 04/10/24 04/10/24 Range/Units 09:34 11:27 WBC 5.9 (4.8-10.8) X10*3/uL RBC 3.61 L (4.20-5.50) X10*6/uL Hgb 11.3 L (12.0-16.0) g/dl Hct 33.5 L (37.0-47.0) % MCV 92.8 (80.0-98.0) fL MCH 31.3 (27.0-33.0) pg MCHC 33.7 (31.0-35.0) g/dl RDW 13.6 (11.0-16.0) % Plt Count 154 L (160-400) X10*3/uL MPV 11.7 (9.4-12.3) fL Immature Gran % (Auto) 0.3 (0.0-0.4) % Neut % (Auto) 58.7 (45-73) % Lymph % (Auto) 29.8 (20-40) % [place] % (Auto) 7.5 (2-11) % Eos % (Auto) 3.2 (0-4) % Baso % (Auto) 0.5 (0-2) % Lymph # (Auto) 1.8 (1.2-4.9) X10*3/uL [place] # (Auto) 0.4 (0.1-1.2) X10*3/uL Eos # (Auto) 0.2 (0.0-0.4) X10*3/uL Baso # (Auto) 0.0 (0.0-0.2) X10*3/uL Abs Immat Gran (auto) 0.02 (0.00-0.03) X10*3/uL Absolute Neuts (auto) 3.5 (2.0-8.3) x10*3/uL Absolute Nucleated RBC 0.000 (0.0-0.012) X10*3/uL Nucleated RBC % (auto) 0.0 (0.0-0.2) /100WBC Sodium 139 (135-145) mmol/L Potassium 3.6 (3.3-5.1) mmol/L Chloride 112 H (96-108) mmol/L Carbon Dioxide 21 L (22-29) mmol/L Anion Gap 10 L (12-20) BUN 10 (9-16) mg/dL Creatinine 0.78 (0.5-1.4) mg/dL Estim Creat Clear Calc 117.9 Estimated GFR > 60 Random Glucose 88 (60-115) mg/dL Calcium 8.4 D (8.4-10.2) mg/dL Total Bilirubin 0.3 (0.0-1.0) mg/dL AST 20 (5-31) U/L ALT 9 (0-31) U/L Alkaline Phosphatase 52 (39-117) U/L Troponin I High Sens < 2.7 < 2.7 (<3.5-17.0) ng/L Total Protein 6.4 L (6.5-8.0) g/dL Albumin 3.9 (3.5-5.0) g/dL Lipase 71 (8-78) U/L Beta HCG, Quant < 2 mIU/mL Independent Interpretation I performed an independent interpretation of an: EKG Interpretation: Normal sinus rhythm no ST-T changes Radiology Impression Discussion of test interpretation with radiology: I have reviewed the radiologist's reading. Discharge Plan Discharge Clinical Impression: Vomiting Qualifiers: Vomiting type: unspecified Chest pain Qualifiers: Chest pain type: unspecified Qualified Code(s): R07.9 - Chest pain, unspecified Patient Disposition: Home, Self-Care Additional Instructions: follow up with Primary Care return if worse Prescriptions: New ondansetron 4 mg tablet,disintegrating 4 mg PO Q8H 4 Days Qty: 12 0RF No Action ferrous fumarate 324 mg (106 mg iron) tablet 324 mg PO DAILY Qty: 90 0RF mecobalamin (vitamin B12) 1,000 mcg tablet,disintegrating 1,000 mcg sublingual DAILY Qty: 90 0RF Rx Instructions: place tablet under tongue and allow to dissolve for at least30 secs before swallowing Referrals: Physician,Unknown J [Primary Care Provider] - 2 days Stand Alone Forms: Work/School Release Print Language: Monegasque
[2024-04-10 09:38] LABS: MANUAL DIFF FLAG NO
[2024-04-10 09:39] LABS: Basophils Percent Auto 0.5 % (0-2); Eosinophils Absolute Auto 0.2 X10*3/uL (0.0-0.4); Eosinophils Percent Auto 3.2 % (0-4); Hematocrit 33.5 % (37.0-47.0); Hemoglobin 11.3 g/dl (12.0-16.0); Imm Gran Abs Auto 0.02 X10*3/uL (0.00-0.03); Imm Gran Pct Auto 0.3 % (0.0-0.4); Lymphocytes Absolute Auto 1.8 X10*3/uL (1.2-4.9); Lymphocytes Percent Auto 29.8 % (20-40); Mean Corpuscular HGB Conc 33.7 g/dl (31.0-35.0); Mean Corpuscular Hemoglobin 31.3 pg (27.0-33.0); Mean Corpuscular Volume 92.8 fL (80.0-98.0); Mean Platelet Volume 11.7 fL (9.4-12.3); Monocytes Absolute Auto 0.4 X10*3/uL (0.1-1.2); Monocytes Percent Auto 7.5 % (2-11); Neutrophils Absolute Auto 3.5 x10*3/uL (2.0-8.3); Neutrophils Percent Auto 58.7 % (45-73); Platelet Count 154 X10*3/uL (160-400); Red Blood Count 3.61 X10*6/uL (4.20-5.50); Red Cell Distribution Width 13.6 % (11.0-16.0); White Blood Count 5.9 X10*3/uL (4.8-10.8)
[2024-04-10 09:55] LABS: Alanine Aminotransferase 9 U/L (0-31); Albumin Level 3.9 g/dL (3.5-5.0); Alkaline Phosphatase 52 U/L (39-117); Anion Gap 10 (12-20); Aspartate Amino Transferase 20 U/L (5-31); Bilirubin Total 0.3 mg/dL (0.0-1.0); Blood Urea Nitrogen 10 mg/dL (9-16); Calcium 8.4 mg/dL (8.4-10.2); Carbon Dioxide 21 mmol/L (22-29); Chloride 112 mmol/L (96-108); Creatinine Clr Calc Pharmacy 117.9; Estimated Glomerular Filt Rate > 60; Glucose Random 88 mg/dL (60-115); Lipase 71 U/L (8-78); Potassium 3.6 mmol/L (3.3-5.1); Sodium 139 mmol/L (135-145); Total Protein 6.4 g/dL (6.5-8.0)
[2024-04-10] MEDS: 0.9 % Sodium Chloride 1,000 ML 999 ML IVCONT ×2 (10:05→12:39)
[2024-04-10 10:17] VITALS: BP 111/57; PULSE 64; RESP 15; TEMP 37.2; O2SAT 100
[2024-04-10 10:26] LABS: HCG Quantitative < 2 mIU/mL; Troponin-I High Sensitivity < 2.7 ng/L (<3.5-17.0)
[2024-04-10 11:55] LABS: Troponin-I High Sensitivity < 2.7 ng/L (<3.5-17.0)
[2024-04-10 12:18] VITALS: BP 101/42; PULSE 47; RESP 14; TEMP 36.6; O2SAT 100
[2024-04-10 13:51] VITALS: BP 103/42; PULSE 48; RESP 18; TEMP 36.9; O2SAT 98
== END 2024-04-10 13:53 | disposition home or self-care (01) ==
PROVIDERS: Emergency Provider Emergency Medicine
DX: R11.2 Nausea with vomiting, unspecified (principal); R07.89 Other chest pain; R10.2 Pelvic and perineal pain; Z79.899 Other long term (current) drug therapy
CPT/HCPCS: 36415; 71045; 80053; 83690; 84484; 84702; 85025; 93005; 96360; 96361; 99284

== ENCOUNTER → 2024-04-10 09:13 | Outpatient (BNV) | payer OTHER, SELFPAY | PROVIDERS: Emergency Provider Emergency Medicine; Visit Provider Internal Medicine | DX: R07.9 Chest pain, unspecified (principal) | CPT/HCPCS: 93010 ==

== ENCOUNTER → 2024-04-12 12:49 | Outpatient (REF) | payer OTHER, SELFPAY ==
--- NOTE | 2024-04-12 12:52 | HM_ITS ---
Conclusion: 1. Patient was monitored for total period of 1 day and 2 hours 2. Baseline was normal sinus rhythm with average heart rate of 69 beats per minute 3. No significant pauses noted 4. Occasional PACs noted with total burden of 0.3% 5. No patient reported events MTDD
--- NOTE | 2024-04-12 12:52 | CA_ITS ---
Transthoracic Echocardiogram Patient (Last, First, Middle): Roc Selby D Gender: Female Date of : 2000 Age: 23 Procedure Date: 04/12/2024 Procedure Type: Transthoracic Echocardiogram Location: OP Height: 157.48 cm Weight: 70.31 kg BSA: 1.72 m2 Heart Rate: 53 bpm BP: 108 / 70 mmHg Family Engagement Specialist: SB Referring MD: Kamila Murdock PA-C Symptoms: R55 - Syncope and collapse Study Quality: Adequate ECG Rhythm: Bradycardia Conclusions: - The left ventricular systolic function is normal. The calculated ejection fraction is 60% by biplane method. - No obvious valvular pathology seen on this study. Findings Left Ventricle Normal left ventricular cavity size. There is normal left ventricular wall thickness. The left ventricular systolic function is normal. The calculated ejection fraction is 60% by biplane method. There is no evidence of regional wall motion abnormalities. Diastolic function is normal for age. Right Ventricle Normal right ventricular cavity size and systolic function. Atria Both atria are normal in size. Aortic Valve There is a normal trileaflet aortic valve. There is no aortic valve stenosis. There is no aortic valve regurgitation. Mitral Valve The mitral valve appears normal. There is no mitral valve regurgitation. There is no mitral valve stenosis. Pulmonic Valve The pulmonic valve is likely normal. Tricuspid Valve Normal tricuspid valve structure. There is trace tricuspid valve regurgitation. There is no evidence of pulmonary hypertension. Great Vessels The asc aorta is normal in size. Venous The inferior vena cava is normal in size and collapses greater than 50% with inspiration. Pericardium/Pleural There is no evidence of pericardial effusion. Prior Study Comparison No prior study available for comparison. Recommendations, Care & Conclusions No obvious valvular pathology seen on this study. Measurements 2D Linear Measurements IVSd: 0.65 0.6-0.9/0.6-1.0 cm LVIDd: 4.88 3.9-5.3/4.2-5.9 cm LVIDd Index: 2.84 2.4-3.2/2.2-3.1 cm/m2 LVIDs: 3.15 2.0-3.6 cm LVPWd: 0.68 0.7-1.1 cm LA Diam: 3.60 2.7-3.8/3.0-4.0 cm LAIDs Index: 2.09 1.5-2.3 cm/m2 LV Mass: 128.32 67-162/88-224 g LV Mass Index: 74.60 43-95/49-115 g/m2 LVOT Diam: 2.00 3.0+(-)1.3 cm 2D Systolic Function EF 4C: 50.50 >55% EF 2C: 67.60 >55% EF BiP: 60.10 >55% Mitral Valve MV Pk E: 1.32 MV PK A: 0.37 MV Decel Time: 184.00 E/A: 3.50 E'Lateral: 17.10 E'Medial: 9.57 E/E' Med: 13.80 E/E' Lat: 7.70 PHT: 54.00 MVA PHT: 4.07 Decel Collin: 7.17 Aortic Valve AoV Pk Manjit: 1.20 AoV Pk Grad: 6.00 LIZ: 2.78 LVOT LVOT Pk Manjit: 1.08 LVOT Mn Manjit: 0.82 LVOT VTI: 0.27 LVOT Pk Grad: 5.00 LVOT Mn Grad: 3.00 LVOT Diam: 2.00 LVOT Area: 3.14 Diastolic Function MV Pk E: 1.32 MV Pk A: 0.37 E/A: 3.50 E'Medial: 9.57 E/E' Med: 13.80 E' Laterial: 17.10 E/E' Lat: 7.70 Right Ventricle TAPSE (mm): 23.60 TVS' Manjit: 12.60 Tricuspid Valve TR Pk Manjit: 1.93 TR Pk Grad: 15.00 RA Press: 3.00 RVSP: 18.00 Great Vessels Aorta Sinus of Valsalva: 2.30 2.0-3.5 cm Ao Asc: 2.20 2.1-3.4 cm Ao Arch: 1.70 Ao Desc: 1.40 Pulmonary Veins Pulm Vein S/D 1.30 Pulmonary Valve PV Pk Manjit: 1.03 Peak PV Grad: 4.00 Updated in Other Vendor System with Status of Final Brett Nunez MD electronically signed on 04/13/2024 12:57:50 PM with status of Final
== END ==
LOC: HO.CARD 12:49
PROVIDERS: PCP Physician Assistant; Visit Provider Physician Assistant
DX: R55 Syncope and collapse (principal)
CPT/HCPCS: 93225; 93306

== ENCOUNTER → 2024-04-12 12:52 | Outpatient (BNV) | payer OTHER, SELFPAY | PROVIDERS: PCP Physician Assistant; Visit Provider Internal Medicine | DX: R55 Syncope and collapse (principal); R00.1 Bradycardia, unspecified | CPT/HCPCS: 93227; 93306 ==

== ENCOUNTER 2024-04-25 12:42 | Outpatient (REF) | payer OTHER, SELFPAY ==
[2024-04-25 12:52] LABS: MANUAL DIFF FLAG NO
[2024-04-25 13:54] LABS: Basophils Percent Auto 0.5 % (0-2); Eosinophils Absolute Auto 0.2 X10*3/uL (0.0-0.4); Eosinophils Percent Auto 2.8 % (0-4); Hematocrit 37.5 % (37.0-47.0); Hemoglobin 12.4 g/dl (12.0-16.0); Imm Gran Abs Auto 0.02 X10*3/uL (0.00-0.03); Imm Gran Pct Auto 0.3 % (0.0-0.4); Lymphocytes Absolute Auto 1.8 X10*3/uL (1.2-4.9); Lymphocytes Percent Auto 29.9 % (20-40); Mean Corpuscular HGB Conc 33.1 g/dl (31.0-35.0); Mean Corpuscular Hemoglobin 30.9 pg (27.0-33.0); Mean Corpuscular Volume 93.5 fL (80.0-98.0); Mean Platelet Volume 11.8 fL (9.4-12.3); Monocytes Absolute Auto 0.4 X10*3/uL (0.1-1.2); Monocytes Percent Auto 6.5 % (2-11); Neutrophils Absolute Auto 3.7 x10*3/uL (2.0-8.3); Platelet Count 220 X10*3/uL (160-400); Red Blood Count 4.01 X10*6/uL (4.20-5.50); Red Cell Distribution Width 13.7 % (11.0-16.0); White Blood Count 6.1 X10*3/uL (4.8-10.8)
[2024-04-25 14:20] LABS: Iron 83 mcg/dL (30-160); Percent Iron Saturation 32 % (15-50); Total Iron Binding Capacity 263 mcg/dL (228-428); Unsaturated Iron Binding 180 ug/dL
[2024-04-25 14:31] LABS: Ferritin 35 ng/mL (10-122)
[2024-04-25 14:48] LABS: Folate 6.8 ng/mL (> or = 4.0); Vitamin B12 372 pg/mL (200-900)
== END 2024-04-25 12:43 | disposition home or self-care (01) ==
LOC: HO.LAB 12:42
PROVIDERS: PCP Physician Assistant; Visit Provider Physician Assistant
DX: R55 Syncope and collapse (principal); D64.9 Anemia, unspecified
CPT/HCPCS: 36415; 82607; 82728; 82746; 83540; 85025

== ENCOUNTER 2024-04-27 15:12 | Outpatient (AMB) | payer OTHER, SELFPAY ==
--- NOTE | 2024-04-27 15:28 | MHC.PC.OV ---
Vital Signs 04/27/24 15:29 Height 5 ft 3 in Weight 156 lb 6 oz BMI 27.7 BP 102/68 Blood Pressure Location Rt brachial Position Sitting Respiration 13 Pulse 63 Pulse Source Pulse Oximeter Pulse Oximetry (%) 100 Oxygen Delivery Method Room Air Intake Visit Reasons: dizziness Intake Note: Follow up dizziness Compounding And Finishing Supervisor Required: No Allergies No Known Allergies [No Known Allergies*] Allergy (Verified 04/27/24 15:29) Medication List - Last Reconciled 04/27/24 by Kamila Murdock PA-C ferrous fumarate 324 mg PO DAILY mecobalamin (vitamin B12) 1,000 mcg sublingual DAILY ondansetron 4 mg PO Q8H 4 days Tobacco use date assessed: 03/08/24 Dental Screening Dental Screen Date: 03/08/24 HPI dizziness HPI Details Patient is a 23-year-old female who presents today for a follow up. She tells me today that she is feeling a lot better in terms of dizziness. States that the iron supplements however are causing her to have an upset stomach. Her labs do show that she does have a mild anemia. She has a history of heavy and long periods. She does not follow consistently with the continuous conveyor screen drier. She requests motion sickness patches today. She is going on a cruise next month for 10 days. She states anytime she travels long distances she gets very nauseous and easily sick. She will have trips throughout this year. 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 [employer] Current occupational exposures/hazards: No Cognitive needs: No Hearing needs: No Vision needs: Yes (glasses ) Physical exam (Primary Care) Vital Signs: Last Vital Signs Pulse 63 04/27/24 15:29 Resp 13 04/27/24 15:29 BP 102/68 04/27/24 15:29 Pulse Ox 100 04/27/24 15:29 Oxygen Delivery Method Room Air 04/27/24 15:29 BMI result Body Mass Index 27.7 Tobacco/Smoking Status: Tobacco use Status Tobacco use date assessed 03/08/24 04/27/24 15:32 Patient Tobacco Use Status Never used Tobacco 04/27/24 15:32 e-Cigarette/Vaping Use Currently Using 04/27/24 15:32 Const Orientation/consciousness: patient oriented x3 HENMT Ears: hearing grossly normal bilaterally Neck Thyroid: Thyroid normal Lymphatic: no lymphadenopathy noted Resp Auscultation: clear to auscultation bilaterally Cardio Rate: regular rate Rhythm: regular rhythm Heart sounds: S1 normal heart sound present and S2 normal heart sound present GI Inspection: Yes normal to inspection Palpation (GI): Soft to palpation and Other GI palpation findings present (nontender, no cva tenderness) Auscultation: normoactive bowel sounds Rectal Exam - Female: deferred Skin General skin exam: no rashes or lesions noted Neuro General: patient oriented x3, gait normal and no focal motor deficits Results Reviewed Results Reviewed: Holter: 1. Patient was monitored for total period of 1 day and 2 hours 2. Baseline was normal sinus rhythm with average heart rate of 69 beats per minute 3. No significant pauses noted 4. Occasional PACs noted with total burden of 0.3% 5. No patient reported events Echo: Conclusions: - The left ventricular systolic function is normal. The calculated ejection fraction is 60% by biplane method. - No obvious valvular pathology seen on this study. Assessment and Plan Assessment & Plan (1) Anemia: Code(s): D64.9 - Anemia, unspecified Qualifiers: Anemia type: iron deficiency Iron deficiency anemia type: chronic blood loss Qualified Code(s): D50.0 - Iron deficiency anemia secondary to blood loss (chronic) Plan: She will try the flintstone vitamins. She will increase iron rich foods. We will check labs in a few months. I have referred her to OBGYN. (2) Motion sickness: Code(s): T75.3XXA - Motion sickness, initial encounter Qualifiers: Encounter type: initial encounter Qualified Code(s): T75.3XXA - Motion sickness, initial encounter Plan: Scopolamine patches ordered for motion sickness. Discussed risks, benefits and adverse effects of this medication. Orders: Orders Complete Blood Count Auto Diff 4 Weeks D64.9 - Anemia, unspecified IRON PROFILE 4 Weeks D64.9 - Anemia, unspecified Referrals DIRECTOR OF ATHLETICS Referral [id number] - Encounter for gynecological examination (general) (routine) without abnormal findings Medications: New scopolamine base 1 patch transdermal Q3D PRN 10 ea 0RF nausea and vomiting Coding Level of Care Code Est Pt Level 4 (71888) Complex EM visit Add On G2211 Diagnoses Iron deficiency anemia due to chronic blood loss D50.0 Anemia type: iron deficiency Iron deficiency anemia type: chronic blood loss Motion sickness, initial encounter T75.3XXA Encounter type: initial encounter
[2024-04-27 15:29] VITALS: BP 102/68; PULSE 63; RESP 13; O2SAT 100; BMI 27.7
== END 2024-04-27 15:53 | disposition home or self-care (01) ==
PROVIDERS: PCP Physician Assistant; Visit Provider Physician Assistant
DX: D50.0 Iron deficiency anemia secondary to blood loss (chronic) (principal); T75.3XXA Motion sickness, initial encounter
CPT/HCPCS: 99214; G2211

== ENCOUNTER 2024-06-14 13:46 | Outpatient (AMB) | payer OTHER, SELFPAY ==
--- NOTE | 2024-06-14 13:57 | MHC.PC.OV ---
Vital Signs 06/14/24 13:58 Height 5 ft 3 in Weight 154 lb 8 oz BMI 27.4 BP 90/60 Blood Pressure Location Rt brachial Position Sitting Respiration 12 Pulse 49 L Pulse Source Pulse Oximeter Pulse Oximetry (%) 100 Oxygen Delivery Method Room Air Intake Visit Reasons: Bruises Intake Note: Bruising, concerned about low iron Instrument Repair Specialist Required: No Allergies No Known Allergies [No Known Allergies*] Allergy (Verified 06/14/24 13:57) Medication List - Last Reconciled 06/14/24 by Kamila Murdock PA-C ferrous fumarate 324 mg PO DAILY mecobalamin (vitamin B12) 1,000 mcg sublingual DAILY ondansetron 4 mg PO Q8H 4 days scopolamine base 1 patch transdermal Q3D PRN Tobacco use date assessed: 03/08/24 Dental Screening Dental Screen Date: 03/08/24 HPI Bruises HPI Details Patient is a 23-year-old female who presents today with complaints of bruises on her arms and legs. It started a couple of weeks ago. Denies any easy bleeding of the gums, rashes, bruising along the belt or pant line. No change in energy. No swollen lymph nodes, fevers or chills. She was sick recently with a cold while she was on vacation but has been feeling better. While she was on her cruise she also had her. The whole time and states that it was very heavy. She did miss a couple of weeks if her iron supplement. Otherwise, no changes. 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 2. Feeling down, depressed, or hopeless: more than half the days 3. Trouble falling or staying asleep, or sleeping too much: not at all 4. Feeling tired or having little energy: nearly every day 5. Poor appetite or overeating: several days 6. Feeling bad about yourself - or that you are a failure or have let yourself or your family down: not at all 7. Trouble concentrating on things, such as reading the newspaper or watching television: not at all 8. Moving or speaking so slowly that other people could have noticed. Or the opposite - being so fidgety or restless that you have been moving around a lot more than usual: not at all 9. Thoughts that you would be better off or of hurting yourself in some way: not at all Source: Developed by Drs. Celso Regalado, Jennifer Hernadez, Ashutosh Ying and colleagues, with an educational roseline from [employer]. Thrive Questionnaire I am a: Patient What is your living situation today?: I have a steady place to live Within the past 12 months, did the food you bought not last and you didn't have the money to get more?: Never true Within the past 12 months, did you worry whether your food would run out before you got money to buy more?: Never true Do you have trouble paying for medicines?: No Do you have trouble getting transportation to medical appointments?: No Do you have trouble paying your heating and electricity bill?: No Do you have trouble taking care of your child, family member or friend?: No Do you have trouble with day-to-day activities such as bathing, preparing meals, shopping, managing finances, etc.?: No Are you currently unemployed and looking for a job?: No Are you interested in more education?: No Please select the resources that you would like help with: None Currently or been in a relationship where the following occur: No concerns reported THRIVE Score: 0 AUDIT C Alcohol Use Questionnaire (AUDIT-C) 1. How often do you have a drink containing alcohol?: Monthly or less 2. How many drinks containing alcohol do you have on a typical day when you are drinking?: 1 or 2 3. How often do you have six or more drinks on one occasion?: Never Total Score: 1 JORGE-7 AMB Questionnaire JORGE-7 Feeling nervous, anxious, or on edge: 1 = Several days Not being able to stop or control worryin = Several days Worrying too much about different things: 1 = Several days Trouble relaxin = Several days Being so restless that it is hard to sit still: 1 = Several days Becoming easily annoyed or irritable: 1 = Several days Feeling afraid as if something awful might happen: 1 = Several days Total JORGE-7 score (0-4 normal; 5-9 mild; 10-14 moderate; 15-21 severe): 7 Source: Developed by Drs. Celso Regalado, Jennifer Hernadez, Ashutosh Ying and colleagues, with an educational roseline from [employer]. Physical exam (Primary Care) Vital Signs: Last Vital Signs Pulse 49 L 06/14/24 13:58 Resp 12 06/14/24 13:58 BP 90/60 06/14/24 13:58 Pulse Ox 100 06/14/24 13:58 Oxygen Delivery Method Room Air 06/14/24 13:58 BMI result Body Mass Index 27.4 Tobacco/Smoking Status: Tobacco use Status Tobacco use date assessed 03/08/24 06/14/24 14:01 Patient Tobacco Use Status Never used Tobacco 06/14/24 14:01 e-Cigarette/Vaping Use Currently Using 06/14/24 14:01 Currently or been in a relationship where the following occur: No concerns reported Const Orientation/consciousness: patient oriented x3 HENMT Ears: hearing grossly normal bilaterally Neck Thyroid: Thyroid normal Lymphatic: no lymphadenopathy noted Resp Auscultation: clear to auscultation bilaterally Cardio Rate: regular rate Rhythm: regular rhythm Heart sounds: S1 normal heart sound present and S2 normal heart sound present GI Inspection: Yes normal to inspection Palpation (GI): Soft to palpation and Other GI palpation findings present (nontender, no cva tenderness) Auscultation: normoactive bowel sounds Rectal Exam - Female: deferred Skin Other: She does have a few small scattered ecchymotic lesions noted on her bilateral upper extremities and on her lower extremities. No petechial rash noted. No lymphadenopathy. Skin is intact.. Neuro General: patient oriented x3, gait normal and no focal motor deficits Assessment and Plan Assessment & Plan (1) Anemia: Code(s): D64.9 - Anemia, unspecified Qualifiers: Anemia type: iron deficiency Iron deficiency anemia type: chronic blood loss Qualified Code(s): D50.0 - Iron deficiency anemia secondary to blood loss (chronic) Plan: Continue current plan. Advised to follow up with Gynecology given her heavy menses. (2) Easy bruising: Code(s): R23.3 - Spontaneous ecchymoses Plan: Labs ordered today. We will follow up pending test results Orders: Orders Ferritin Today D50.0 - Iron deficiency anemia secondary to blood loss (chronic) Complete Blood Count Auto Diff Today D50.0 - Iron deficiency anemia secondary to blood loss (chronic) Vitamin B12 and Folate Today D50.0 - Iron deficiency anemia secondary to blood loss (chronic) Liver Panel Today D50.0 - Iron deficiency anemia secondary to blood loss (chronic) IRON PROFILE Today D50.0 - Iron deficiency anemia secondary to blood loss (chronic) Coding Level of Care Code Est Pt Level 4 (50377) Complex EM visit Add On [id number] Diagnoses Iron deficiency anemia due to chronic blood loss D50.0 Anemia type: iron deficiency Iron deficiency anemia type: chronic blood loss Easy bruising R23.3
[2024-06-14 13:58] VITALS: BP 90/60; PULSE 49; RESP 12; O2SAT 100; BMI 27.4
== END 2024-06-14 15:40 | disposition home or self-care (01) ==
PROVIDERS: PCP Physician Assistant; Visit Provider Physician Assistant
DX: D50.0 Iron deficiency anemia secondary to blood loss (chronic) (principal); R23.3 Spontaneous ecchymoses

== ENCOUNTER → 2024-06-14 13:46 | Outpatient (BNVA) | payer OTHER, SELFPAY | PROVIDERS: PCP Physician Assistant; Visit Provider Physician Assistant | DX: D50.0 Iron deficiency anemia secondary to blood loss (chronic) (principal); R23.3 Spontaneous ecchymoses ==

== ENCOUNTER 2024-06-20 11:12 | Outpatient (REF) | payer OTHER, SELFPAY ==
[2024-06-20 11:35] LABS: MANUAL DIFF FLAG NO
[2024-06-20 11:47] LABS: Basophils Percent Auto 0.7 % (0-2); Eosinophils Absolute Auto 0.2 X10*3/uL (0.0-0.4); Eosinophils Percent Auto 3.4 % (0-4); Hematocrit 37.6 % (37.0-47.0); Hemoglobin 12.3 g/dl (12.0-16.0); Imm Gran Abs Auto 0.02 X10*3/uL (0.00-0.03); Imm Gran Pct Auto 0.3 % (0.0-0.4); Lymphocytes Absolute Auto 1.6 X10*3/uL (1.2-4.9); Lymphocytes Percent Auto 25.9 % (20-40); Mean Corpuscular HGB Conc 32.7 g/dl (31.0-35.0); Mean Corpuscular Hemoglobin 30.6 pg (27.0-33.0); Mean Corpuscular Volume 93.5 fL (80.0-98.0); Mean Platelet Volume 11.7 fL (9.4-12.3); Monocytes Absolute Auto 0.5 X10*3/uL (0.1-1.2); Monocytes Percent Auto 8.2 % (2-11); Neutrophils Absolute Auto 3.8 x10*3/uL (2.0-8.3); Neutrophils Percent Auto 61.5 % (45-73); Platelet Count 197 X10*3/uL (160-400); Red Blood Count 4.02 X10*6/uL (4.20-5.50); Red Cell Distribution Width 13.8 % (11.0-16.0); White Blood Count 6.1 X10*3/uL (4.8-10.8)
[2024-06-20 12:20] LABS: Alanine Aminotransferase 15 U/L (0-31); Albumin Level 4.5 g/dL (3.5-5.0); Alkaline Phosphatase 62 U/L (39-117); Aspartate Amino Transferase 23 U/L (5-31); Bilirubin Direct 0.2 mg/dL (0.0-0.5); Bilirubin Total 0.4 mg/dL (0.0-1.0); Iron 54 mcg/dL (30-160); Percent Iron Saturation 18 % (15-50); Total Iron Binding Capacity 294 mcg/dL (228-428); Total Protein 7.4 g/dL (6.5-8.0); Unsaturated Iron Binding 240 ug/dL
[2024-06-20 12:34] LABS: Ferritin 29 ng/mL (10-122)
[2024-06-20 12:45] LABS: Folate 6.7 ng/mL (> or = 4.0); Vitamin B12 321 pg/mL (200-900)
== END 2024-06-20 11:13 | disposition home or self-care (01) ==
LOC: HO.LAB 11:12
PROVIDERS: PCP Physician Assistant; Visit Provider Physician Assistant
DX: D50.0 Iron deficiency anemia secondary to blood loss (chronic) (principal)
CPT/HCPCS: 36415; 80076; 82607; 82728; 82746; 83540; 85025

== ENCOUNTER → 2024-08-23 16:01 | Outpatient (AMB) | payer OTHER, SELFPAY ==
--- NOTE | 2024-08-23 15:46 | A.OFFPC_ITS ---
Intake Visit Reasons: depression Intake Note: Discuss depression Allergies No Known Allergies [No Known Allergies*] Allergy (Verified 06/14/24 13:57) Medication List - Last Reconciled 08/23/24 by Kamila Murdock PA-C ferrous fumarate 324 mg PO DAILY mecobalamin (vitamin B12) 1,000 mcg sublingual DAILY ondansetron 4 mg PO Q8H 4 days scopolamine base 1 patch transdermal Q3D PRN Tobacco use date assessed: 03/08/24 Dental Screening Dental Screen Date: 03/08/24 HPI depression HPI Details Patient is a 23-year-old female who presents today with concerns of anxiety and depression. She has a history of mild anxiety and depression states that she has never needed medication before but now she feels like she is at the point where she could use medicine. She states that she feels that she is in such a funk and unable to change anything. She is very tearful today on the phone and states that she lacks a lot of motivation and energy to get things done. She is stressed about her living situation. She is currently living in a house that she believes has rats. She states her landlord is very difficult to reach and talk with. Apparently her landlord does not like her family and she did not know this prior to signing the least. She states that there is a lot of relationship issues between the family's. She is not overly close with her family so did not know a lot of this. She states that she has a good support system with her [id number] and her boyfriend. No current SI/HI. She states in the recent past she has had some suicidal ideation. She has no plan. She currently feels safe. Today is a slightly better day. She has never seen a therapist but does work for [employer] and her work has offered her therapy appointments. Denies any auditory or visual hallucinations. 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 [employer] Current occupational exposures/hazards: No Cognitive needs: No Hearing needs: No Vision needs: Yes (glasses ) Questionnaire Thrive Questionnaire Date Thrive assessed: 06/14/24 I am a: Patient What is your living situation today?: I have a steady place to live Within the past 12 months, did the food you bought not last and you didn't have the money to get more?: Never true Within the past 12 months, did you worry whether your food would run out before you got money to buy more?: Never true Do you have trouble paying for medicines?: No Do you have trouble getting transportation to medical appointments?: No Do you have trouble paying your heating and electricity bill?: No Do you have trouble taking care of your child, family member or friend?: No Do you have trouble with day-to-day activities such as bathing, preparing meals, shopping, managing finances, etc.?: No Are you currently unemployed and looking for a job?: No Are you interested in more education?: No Please select the resources that you would like help with: None Currently or been in a relationship where the following occur: No concerns reported THRIVE Score: 0 Physical exam (Primary Care) Tobacco/Smoking Status: Tobacco use Status Tobacco use date assessed 03/08/24 08/23/24 15:48 Patient Tobacco Use Status Never used Tobacco 08/23/24 15:48 e-Cigarette/Vaping Use Currently Using 08/23/24 15:48 Thrive Assessment: Date of Thrive Assessment Date Thrive assessed 06/14/24 08/23/24 15:48 Currently or been in a relationship where the following occur: No concerns reported Telehealth Telehealth Telehealth Platform: Telephone Location of provider rendering services: practice address Location of patient: address on file Patient Identification confirmed using: Name, : Yes Telehealth method: voice only Patient verbally consented to treatment: Yes Patient verbally consented to billing insurance company: Yes Patient informed of any privacy concerns related to visit: Yes Minutes spent on Phone/Video with Pt.: 16 Coding Level of Care Code Tele Est Pt Level 3 (50254) Diagnoses Current severe episode of major depressive disorder F32.2 Generalized anxiety disorder with panic attacks F41.1; F41.0 Assessment & Plan Assessment & Plan (1) Current severe episode of major depressive disorder: Code(s): F32.2 - Major depressive disorder, single episode, severe without psychotic features Category: Medical Plan: We will start Lexapro. Discussed risks and benefits and adverse effects of this medication including increased risk of SI/HI. Advised if she develops this at all she needs to go to the ER call 911. Phone number for crisis was also provided today. I have referred her to behavioral health. In regards to her housing issues I have put in a referral to our nurse navigator. I have also encouraged her to contact her local police department and possibly the housing court. We discussed a short term follow up. Advised that I want to see her in person in 2-3 weeks. Sooner if anything changes. Patient understands and agrees with this plan. (2) Generalized anxiety disorder with panic attacks: Code(s): F41.1 - Generalized anxiety disorder; F41.0 - Panic disorder [episodic paroxysmal anxiety] Category: Medical Plan: As above. Orders: Referrals Nurse Navigator Referral F32.2 - Major depressive disorder, single episode, severe without psychotic features, F41.0 - Panic disorder [episodic paroxysmal anxiety], F41.1 - Generalized anxiety disorder Behavioral Health Referral F32.2 - Major depressive disorder, single episode, severe without psychotic features, F41.0 - Panic disorder [episodic paroxysmal anxiety], F41.1 - Generalized anxiety disorder Medications: New escitalopram oxalate (Lexapro) 5 mg PO DAILY 30 tabs 3RF
== END ==
LOC: HO.HMCFM 16:01
PROVIDERS: PCP Physician Assistant; Visit Provider Physician Assistant
DX: F32.2 Major depressive disorder, single episode, severe without psychotic features (principal); F41.1 Generalized anxiety disorder; F41.0 Panic disorder [episodic paroxysmal anxiety]

== ENCOUNTER 2024-08-31 00:19 | Emergency (ER) | payer OTHER, SELFPAY ==
[2024-08-31 00:24] VITALS: BP 118/76; PULSE 77; O2SAT 99
== END 2024-08-31 00:38 | disposition left against medical advice (07) ==
LOC: HO.ED 00:41
PROVIDERS: Emergency Provider Emergency Medicine
DX: F41.9 Anxiety disorder, unspecified (principal); F32.A Depression, unspecified; Z53.21 Procedure and treatment not carried out due to patient leaving prior to being seen by health care provider

== ENCOUNTER 2024-11-04 14:44 | Emergency (ER) | payer OTHER, SELFPAY ==
[2024-11-04 14:58] VITALS: BP 111/49; PULSE 55; RESP 18; TEMP 36.6; O2SAT 98; BMI 25.7
--- NOTE | 2024-11-04 14:58 | ED_ITS ---
HPI - General Adult General Chief complaint: Nausea/Vomiting/Diarrhea Stated complaint: vomiting, stomach pain, dehydration Time Seen by Provider: 11/04/24 20:58 Source: patient Mode of arrival: ambulatory Limitations: no limitations History of Present Illness ED Provider: Dr. Chandu Melissa HPI narrative: 23-year-old female who presents emergency department for evaluation of nausea, vomiting, diarrhea times 24 hours. The patient states she was had too numerous to count episodes of vomiting at least 5 episodes of diarrhea over the last 24 hours. She states she was not been able to eat or drink without vomiting and then having diarrhea. She states that she was had chills but no fever. She was had a nonproductive cough and feels short of breath. She denied rhinorrhea, sore throat, chest pain or dyspnea on exertion. She denied frequency, urgency or dysuria. She states she was having abdominal pain and points to her epigastric area when asked to localize the pain. Related Data Previous Rx's ?Medication ?Instructions ?Recorded ondansetron 4 mg disintegrating 4 mg PO Q8H 4 days #12 tabs 04/10/24 tablet scopolamine base 1 mg over 3 days 1 patch transdermal Q3D PRN nausea 04/27/24 transdermal patch and vomiting #10 ea mecobalamin (vitamin B12) 1,000 1,000 mcg sublingual DAILY #90 tabs 06/19/24 mcg disintegrating tablet,sublingual ferrous fumarate 324 mg (106 mg 324 mg PO DAILY #90 tabs 07/10/24 iron) tablet escitalopram oxalate 5 mg tablet 5 mg PO DAILY #30 tabs 08/23/24 (Lexapro) ondansetron 4 mg disintegrating 4 mg PO Q6-8H PRN nausea and 11/05/24 tablet vomiting #14 tabs Allergies Allergy/AdvReac Type Severity Reaction Status Date / Time No Known Allergies Allergy Verified 11/04/24 15:01 [No Known Allergies*] Review of Systems 2 Review of Systems: Yes all other systems are reviewed and are negative [facility] Past Medical History [facility] Narrative: Social history: She denies tobacco use. She rarely drinks alcohol. She smokes marijuana daily. Medical History Abnormal abdominal ultrasound Ovarian cyst Social History Social History Housing: Apartment Unable to assess alcohol history related to: Unknown Alcohol intake: current Alcohol intake frequency: holidays/special occasions only Patient Tobacco Use Status: Never used Tobacco e-Cigarette/Vaping Use: Currently Using Second Hand Smoke Exposure: No Use of substances other than those prescribed or required for medical reasons: Unknown Substance Use Type: Marijuana Advance Directives: No Advance Directives Information Provided: No Do you have a plan to hurt others: No Plan service: No Current occupational status: employed 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 [employer] Current occupational exposures/hazards: No Cognitive needs: No Hearing needs: No Vision needs: Yes (glasses ) Physical Exam ED Vital Signs: Vital Signs - 24 hr 11/04/24 14:58 11/04/24 20:45 11/04/24 22:16 Temperature 98 F 99.1 F 99.0 F Pulse Rate 55 57 52 Respiratory Rate 18 18 18 Blood Pressure 111/49 L 115/69 119/63 Pulse Oximetry 98 100 100 Oxygen Delivery Method Room Air Room Air Room Air BMI result Body Mass Index 25.7 Vital signs were normal Exam: General: Awake, alert in no distress Head: Normocephalic, atraumatic EENT: PERRL, Lids normal, sclera normal, conjunctiva normal, nose normal , ears normal, throat without erythema or exudates Neck: Supple, no adenopathy Lung: breath sounds symmetric, no wheezing, rales or rhonchi Chest: symmetric movement, nontender Heart: regular rate and rhythm, normal S1, S2 no murmurs or rubs Abdomen: soft, mild diffuse tenderness with moderate epigastric tenderness, nondistended, normal bowel sounds Back: no vertebral tenderness, no CVAT Extremities: no deformities, moves all extremities symmetrically Neuro: Awake, alert, oriented, normal speech, cranial nerves intact, moves all extremities symmetrically Psych: Pleasant, cooperative Course Course Course Narrative: RME performed by Ignacia Gillis PA-C. Patient is a 23 year old assigned female at presenting to the emergency department with abdominal pain, nausea, and vomiting. Detailed physical exam and review of systems are deferred to the software support specialist. Labs and swabs ordered. Patient placed back in the waiting room pending room availability and results. Medications Administered Discontinued Medications Generic Name Dose Route Start Last Admin Trade Name Freq PRN Reason Stop Dose Admin Famotidine 20 mg 11/04/24 21:13 11/04/24 21:30 Famotidine/Pf 20 Mg/2 Ml Vial IVPUSH 11/04/24 21:14 20 mg ONCE ONE Administration Sodium Chloride 1,000 mls @ 999 mls/hr 11/04/24 21:14 11/04/24 22:47 Ns IV 11/04/24 22:14 Infused .Q1H1M STA Infusion Ketorolac Tromethamine 15 mg 11/04/24 21:13 11/04/24 21:30 Ketorolac Tromethamine 15 Mg/Ml Vial IVPUSH 11/04/24 21:14 15 mg ONCE STA Administration Ondansetron HCl 4 mg 11/04/24 21:13 11/04/24 21:29 Ondansetron Hcl 4 Mg/2 Ml Vial IVPUSH 11/04/24 21:14 4 mg ONCE ONE Administration Medical Decision Making Medical Decision Making MDM Narrative: 23-year-old female who presents emergency department for evaluation of nausea, vomiting, diarrhea times 24 hours. The patient states she was had too numerous to count episodes of vomiting at least 5 episodes of diarrhea over the last 24 hours. She was had very little food or fluid intake. Patient was had chills, nonproductive cough, shortness of breath, abdominal pain. Vital signs were normal. Patient had mild diffuse tenderness to your abdominal exam with moderate epigastric tenderness. Differential diagnosis: Viral syndrome, COVID-19, influenza, RSV, gastroenteritis, anemia, electrolyte abnormalities Course: 00:26 hours My interpretation patient's laboratory evaluation is as follows: WBC elevated 11,300. Mild normocytic anemia with an H&H of 12.6 and 36.8. Bicarb low 21. COVID-19, influenza and RSV were negative. Quantitative beta-hCG was negative. Urinalysis was concentrated with an elevated specific urine gravity, 1+ protein, negative nitrites, negative leukocyte esterase. Microscopic was negative for urinary tract infection with no bacteria. COVID-19, influenza and RSV were negative. Patient was presentation is consistent with a acute viral syndrome causing abdominal pain, vomiting and diarrhea. Patient was treated with Toradol 15 mg IV, Pepcid 20 mg IV, Zofran 4 mg IV and normal saline x1 L. Patient states that her abdominal pain did improve however she was continuing to have nausea. The patient was able to drink radha ashok but not eat crackers. Patient was given Reglan 10 mg IV and Benadryl 25 mg IV. Patient will be discharged home with a prescription for Zofran 4 mg ODT every 6- 8 hours. She was given printed and verbal instructions and discharged. Lab Data 11/04/24 15:15 11/04/24 15:15 Labs: Lab Results 11/04/24 11/04/24 Range/Units 15:15 22:18 WBC 11.3 H (4.8-10.8) X10*3/uL RBC 4.10 L (4.20-5.50) X10*6/uL Hgb 12.6 (12.0-16.0) g/dl Hct 36.4 L (37.0-47.0) % MCV 88.8 (80.0-98.0) fL MCH 30.7 (27.0-33.0) pg MCHC 34.6 (31.0-35.0) g/dl RDW 13.6 (11.0-16.0) % Plt Count 256 D (160-400) X10*3/uL MPV 11.6 (9.4-12.3) fL Immature Gran % (Auto) 0.4 (0.0-0.4) % Neut % (Auto) 81.4 H (45-73) % Lymph % (Auto) 11.8 L (20-40) % Stephenson % (Auto) 5.8 (2-11) % Eos % (Auto) 0.4 (0-4) % Baso % (Auto) 0.2 (0-2) % Lymph # (Auto) 1.3 (1.2-4.9) X10*3/uL Stephenson # (Auto) 0.7 (0.1-1.2) X10*3/uL Eos # (Auto) 0.1 (0.0-0.4) X10*3/uL Baso # (Auto) 0.0 (0.0-0.2) X10*3/uL Abs Immat Gran (auto) 0.05 H (0.00-0.03) X10*3/uL Absolute Neuts (auto) 9.2 H (2.0-8.3) x10*3/uL Absolute Nucleated RBC 0.000 (0.0-0.012) X10*3/uL Nucleated RBC % (auto) 0.0 (0.0-0.2) /100WBC Sodium 141 (135-145) mmol/L Potassium 3.6 (3.3-5.1) mmol/L Chloride 105 (96-108) mmol/L Carbon Dioxide 21 L (22-29) mmol/L Anion Gap 19 (12-20) BUN 14 (9-16) mg/dL Creatinine 0.82 (0.5-1.4) mg/dL Estim Creat Clear Calc 96.4 Estimated GFR > 60 Random Glucose 92 (60-115) mg/dL Calcium 10.4 H D (8.4-10.2) mg/dL Magnesium 1.8 (1.6-2.6) mg/dL Total Bilirubin 0.7 (0.0-1.0) mg/dL AST 30 (5-31) U/L ALT 16 (0-31) U/L Alkaline Phosphatase 74 (39-117) U/L Total Protein 8.8 H (6.5-8.0) g/dL Albumin 4.9 (3.5-5.0) g/dL Beta HCG, Quant < 2 mIU/mL Urine Color Yellow Urine Appearance Cloudy Urine pH 6.0 (5.0-9.0) Ur Specific [place] >= 1.030 H (1.005-1.025) Urine Protein 30 (1+) H (Neg-Trace) mg/dL Urine Glucose (UA) Negative (Negative) mg/dL Urine Ketones >=160 (Negative) mg/dL Urine Blood Negative (Negative) Urine Nitrite Negative (Negative) Ur Leukocyte Esterase Negative (Negative) Urine RBC 0-2 (0-2) /HPF Urine WBC 0-5 (0-5) /HPF Ur Squamous Epith Cells 3-5 (0-2) /HPF Urine Bacteria Trace (None Seen) Hyaline Casts 3-5 (0-2) /LPF Influenza Type A (PCR) NEGATIVE (Negative) Influenza Type B (PCR) NEGATIVE (Negative) RSV RNA Qual (PCR) NEGATIVE (Negative) SARS-CoV-2 RNA (RT-PCR) NEGATIVE (Negative) Discharge Plan Discharge Clinical Impression: Viral syndrome, Nausea & vomiting, Diarrhea, Acute dehydration Patient Disposition: Home, Self-Care Instructions: Viral Syndrome (ED) Additional Instructions: Your blood work was unremarkable. Your COVID-19, influenza and RSV tests were negative. Your symptoms are consistent with a virus (stomach flu). Take Zofran ODT 4 mg pills, 1 pill dissolved in your mouth every 8 hours as needed for nausea and vomiting. For the next 24 hours, stay on a YUNG diet (bananas, rice, applesauce, tea and toast). Increase your fluid intake over the next several days to try to prevent dehydration. Take ibuprofen 200 mg pills, 2 pills every 6 hours as needed for pain or fever. Take Tylenol (acetaminophen) 500 mg pills, 2 pills every 6 hours as needed for pain or fever. For diarrhea I want you to take Imodium 2 mg pills. ?Take 2 pills after the 1st loose, diarrheal stool then 1 pill after each loose, diarrheal stool up to 8 pills per day. ?This usually stops diarrhea within 24 hours. Follow-up with your doctor in 2 days. Please return to the emergency department if your symptoms get worse or if you develop any symptoms that are concerning to you. Prescriptions: New ondansetron 4 mg tablet,disintegrating 4 mg PO Q6-8H PRN (Reason: nausea and vomiting) Qty: 14 0RF No Action mecobalamin (vitamin B12) 1,000 mcg tablet,disintegrating 1,000 mcg sublingual DAILY Qty: 90 0RF Rx Instructions: place tablet under tongue and allow to dissolve for at least30 secs before swallowing ferrous fumarate 324 mg (106 mg iron) tablet 324 mg PO DAILY Qty: 90 3RF ondansetron 4 mg tablet,disintegrating 4 mg PO Q8H 4 Days Qty: 12 0RF scopolamine base 1 mg over 3 days patch 3 day 1 patch transdermal Q3D PRN (Reason: nausea and vomiting) Qty: 10 0RF escitalopram oxalate [Lexapro] 5 mg tablet 5 mg PO DAILY Qty: 30 3RF Print Language: Honduran
[2024-11-04 15:27] LABS: MANUAL DIFF FLAG NO
[2024-11-04 15:28] LABS: Basophils Percent Auto 0.2 % (0-2); Eosinophils Absolute Auto 0.1 X10*3/uL (0.0-0.4); Eosinophils Percent Auto 0.4 % (0-4); Hematocrit 36.4 % (37.0-47.0); Hemoglobin 12.6 g/dl (12.0-16.0); Imm Gran Abs Auto 0.05 X10*3/uL (0.00-0.03); Imm Gran Pct Auto 0.4 % (0.0-0.4); Lymphocytes Absolute Auto 1.3 X10*3/uL (1.2-4.9); Lymphocytes Percent Auto 11.8 % (20-40); Mean Corpuscular HGB Conc 34.6 g/dl (31.0-35.0); Mean Corpuscular Hemoglobin 30.7 pg (27.0-33.0); Mean Corpuscular Volume 88.8 fL (80.0-98.0); Mean Platelet Volume 11.6 fL (9.4-12.3); Monocytes Absolute Auto 0.7 X10*3/uL (0.1-1.2); Monocytes Percent Auto 5.8 % (2-11); Neutrophils Absolute Auto 9.2 x10*3/uL (2.0-8.3); Neutrophils Percent Auto 81.4 % (45-73); Platelet Count 256 X10*3/uL (160-400); Red Cell Distribution Width 13.6 % (11.0-16.0); White Blood Count 11.3 X10*3/uL (4.8-10.8)
[2024-11-04 15:51] LABS: Alanine Aminotransferase 16 U/L (0-31); Albumin Level 4.9 g/dL (3.5-5.0); Alkaline Phosphatase 74 U/L (39-117); Anion Gap 19 (12-20); Aspartate Amino Transferase 30 U/L (5-31); Bilirubin Total 0.7 mg/dL (0.0-1.0); Blood Urea Nitrogen 14 mg/dL (9-16); Calcium 10.4 mg/dL (8.4-10.2); Carbon Dioxide 21 mmol/L (22-29); Chloride 105 mmol/L (96-108); Creatinine Clr Calc Pharmacy 96.4; Estimated Glomerular Filt Rate > 60; Glucose Random 92 mg/dL (60-115); HCG Quantitative < 2 mIU/mL; Magnesium 1.8 mg/dL (1.6-2.6); Potassium 3.6 mmol/L (3.3-5.1); Sodium 141 mmol/L (135-145); Total Protein 8.8 g/dL (6.5-8.0)
[2024-11-04 16:14] LABS: Influenza A PCR NEGATIVE (Negative); Influenza B PCR NEGATIVE (Negative); Resp Syncy Virus RNA Qual PCR NEGATIVE (Negative); SARS COV2 PCR INHOUSE NEGATIVE (Negative)
[2024-11-04 20:45] VITALS: BP 115/69; PULSE 57; RESP 18; TEMP 37.3; O2SAT 100
[2024-11-04] MEDS: 0.9 % Sodium Chloride 1,000 ML 999 ML IV (21:22)
[2024-11-04] MEDS: ondansetron HCL 4 MG/2 ML VIAL IVPUSH (21:29)
[2024-11-04] MEDS: Famotidine/PF 20 MG/2 ML VIAL IVPUSH (21:30)
[2024-11-04] MEDS: Ketorolac Tromethamine 15 MG/ML VIAL IVPUSH (21:30)
[2024-11-04 22:16] VITALS: BP 119/63; PULSE 52; RESP 18; TEMP 37.2; O2SAT 100
[2024-11-04 22:25] LABS: Appearance Urine Cloudy; Color Urine Yellow; Glucose Urine UA Negative (Negative); Leukocyte Esterase Urine Negative (Negative); Nitrite Urine Negative (Negative); Specific Gravity - Urine >= 1.030 (1.005-1.025); UMIC TRIGGER UACC YES; Urine Blood Negative (Negative); Urine Ketones >=160 mg/dL (Negative); Urine Protein 30 (1+) mg/dL (Neg-Trace)
[2024-11-04 22:39] LABS: Bacteria Urine Trace (None Seen); RBC Urine 0-2 /HPF (0-2); WBC Urine 0-5 /HPF (0-5)
--- NOTE | 2024-11-04 23:34 | PC.NURSE ---
Pt is able to drink radha ashok. Nausea worsens when eating crackers.
[2024-11-05] MEDS: diphenhydrAMINE HCL 50 MG/ML VIAL 25 MG IVPUSH (01:03)
[2024-11-05] MEDS: Metoclopramide HCl 10 MG/2 ML VIAL IVPUSH (01:04)
[2024-11-05 02:47] VITALS: BP 106/70; PULSE 56; RESP 14; TEMP 36.8; O2SAT 100
[2024-11-05 02:48] VITALS: BP 106/71; PULSE 56; RESP 14; TEMP 36.8; O2SAT 100
== END 2024-11-05 02:49 | disposition home or self-care (01) ==
PROVIDERS: Physician Assistant Medical; Emergency Provider Emergency Medicine Emergency Medical Services; PCP Physician Assistant
DX: B34.9 Viral infection, unspecified (principal); R11.2 Nausea with vomiting, unspecified; E86.0 Dehydration; R10.2 Pelvic and perineal pain; R05.9 Cough, unspecified; R06.02 Shortness of breath; Z79.899 Other long term (current) drug therapy; Z03.818 Encounter for observation for suspected exposure to other biological agents ruled out
CPT/HCPCS: 0241U; 80053; 81001; 83735; 84702; 85025; 96361; 96374; 96375; 99284; 99285; J1200; J1885; J2405; J2765

== ENCOUNTER 2024-11-08 15:07 | Outpatient (AMB) | payer OTHER, SELFPAY ==
--- NOTE | 2024-11-08 15:09 | A.OFFPC_ITS ---
Vital Signs 11/08/24 15:19 Height 5 ft 3 in Weight 137 lb BMI 24.3 BP 98/62 Blood Pressure Location Rt brachial Position Sitting Respiration 12 Pulse 48 L Pulse Source Pulse Oximeter Pulse Oximetry (%) 98 Oxygen Delivery Method Room Air Intake Visit Reasons: vomiting, low heart rate Intake Note: Vomiting and low heart rate. Low potassium noted when pt went to [facility]. Also Went to [facility]. sxs started on Wednesday, stomach pain. Has not been able to eat much since then. Allergies No Known Allergies [No Known Allergies*] Allergy (Verified 11/08/24 15:16) Medication List - Last Reconciled 11/08/24 by Kamila Murdock PA-C ferrous fumarate 324 mg PO DAILY mecobalamin (vitamin B12) 1,000 mcg sublingual DAILY ondansetron 4 mg PO Q6-8H PRN sertraline , Tobacco use date assessed: 03/08/24 Dental Screening Dental Screen Date: 03/08/24 HPI vomiting, low heart rate HPI Details Patient is a 23-year-old female with a significant history of iron- deficiency anemia, anxiety, depression who presents today for an ER follow up. She recently presented to [place] ER on 11/04 with complaints of abdominal pain, nausea, vomiting, diarrhea, fever and was noted to also have a low heart rate. She was diagnosed with acute viral gastritis. She then was not feeling better so she went to [facility] ED on 11/06 with similar complaints (diarrhea had [facility] ed) and was noted to have a mildly low potassium but otherwise reassuring labs. Negative test. Today her heart rate is 48 with a lower blood pressure of 98/62. She states that her heart rate has been slow for the last couple weeks. She is worried about this. She does not have any chest pain or shortness on breath. She says that she has not vomited today. She does not feel dizzy. She does have some upper abdominal discomfort. She does feel a bit better but still just overall weak from all of the vomiting. She is accompanied today by her mother who states that she has been making sure she is hydrating a little bit every hour. 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 [employer] Current occupational exposures/hazards: No Cognitive needs: No Hearing needs: No Vision needs: Yes (glasses ) Questionnaire Thrive Questionnaire Date Thrive assessed: 06/14/24 I am a: Patient What is your living situation today?: I choose not to answer this question Within the past 12 months, did the food you bought not last and you didn't have the money to get more?: I choose not to answer this question Within the past 12 months, did you worry whether your food would run out before you got money to buy more?: I choose not to answer this question Do you have trouble paying for medicines?: I choose not to answer this question Do you have trouble getting transportation to medical appointments?: I choose not to answer this question Do you have trouble paying your heating and electricity bill?: I choose not to answer this question Do you have trouble taking care of your child, family member or friend?: I choose not to answer this question Do you have trouble with day-to-day activities such as bathing, preparing meals, shopping, managing finances, etc.?: I choose not to answer this question Are you currently unemployed and looking for a job?: I choose not to answer this question Are you interested in more education?: I choose not to answer this question Please select the resources that you would like help with: None Currently or been in a relationship where the following occur: I choose not to answer THRIVE Score: 0 AUDIT C Alcohol Use Questionnaire (AUDIT-C) 1. How often do you have a drink containing alcohol?: Never Total Score: 0 JORGE-7 AMB Questionnaire JORGE-7 Feeling nervous, anxious, or on edge: 3 = Nearly every day Not being able to stop or control worryin = Nearly every day Worrying too much about different things: 3 = Nearly every day Trouble relaxin = Nearly every day Being so restless that it is hard to sit still: 3 = Nearly every day Becoming easily annoyed or irritable: 3 = Nearly every day Feeling afraid as if something awful might happen: 3 = Nearly every day Total JORGE-7 score (0-4 normal; 5-9 mild; 10-14 moderate; 15-21 severe): 21 Source: Developed by Drs. Celso Regalado, Jennifer Hernadez, Ashutosh Ying and colleagues, with an educational roseline from [employer]. Physical exam (Primary Care) Tobacco/Smoking Status: Tobacco use Status Tobacco use date assessed 03/08/24 11/08/24 15:10 Patient Tobacco Use Status Never used Tobacco 11/08/24 15:10 e-Cigarette/Vaping Use Currently Using 11/08/24 15:10 Thrive Assessment: Date of Thrive Assessment Date Thrive assessed 06/14/24 11/08/24 15:10 Currently or been in a relationship where the following occur: I choose not to answer Const Orientation/consciousness: patient oriented x3 HENMT Ears: hearing grossly normal bilaterally Neck Thyroid: Thyroid normal Lymphatic: no lymphadenopathy noted Resp Auscultation: clear to auscultation bilaterally Cardio Rate: regular rate Rhythm: regular rhythm Heart sounds: S1 normal heart sound present and S2 normal heart sound present GI Other: Mild tenderness to palpation in the upper abdomen without rebound or guarding. Inspection: Yes normal to inspection Palpation (GI): Soft to palpation Auscultation: normoactive bowel sounds Rectal Exam - Female: deferred Skin General skin exam: no rashes or lesions noted Neuro General: patient oriented x3, gait normal and no focal motor deficits Office Procedures EKG Details: EKG today in the office is sinus bradycardia at a rate of 48 beats per minute with nonspecific STT wave abnormalities. Right bundle branch block noted. EKG interpreted myself and Dr. Solorio. [id number], Complete Results Reviewed Results Reviewed: Laboratory Tests 11/04/24 15:15 WBC 11.3 H RBC 4.10 L Hgb 12.6 Hct 36.4 L Plt Count 256 D Sodium 141 Potassium 3.6 Chloride 105 Carbon Dioxide 21 L Anion Gap 19 BUN 14 Creatinine 0.82 Estim Creat Clear Calc 96.4 Estimated GFR > 60 Random Glucose 92 Calcium 10.4 H D Total Bilirubin 0.7 AST 30 ALT 16 Alkaline Phosphatase 74 Total Protein 8.8 H Albumin 4.9 Coding Level of Care Code Est Pt Level 4 (81861) Complex EM visit Add On G2211 Diagnoses Bradycardia R00.1 Viral gastroenteritis A08.4 CPT Codes EKG - CPT: 41604-[id number], Complete ([id number]) Assessment & Plan Assessment & Plan (1) Bradycardia: Code(s): R00.1 - Bradycardia, unspecified Category: Medical Plan: As above. Referral to Cardiology. (2) Viral gastroenteritis: Code(s): A08.4 - Viral intestinal infection, unspecified Category: Medical Plan: Patient does appear to be improving. Abdominal exam does elicit some discomfort but this is not an acute abdomen. We will start her on Pepcid. Advised to continue with the antiemetic as needed. Encouraged her to continue with the brat diet and slowly advance as tolerated. Orders: Orders AMB EKG-In Office Today R00.1 - Bradycardia, unspecified Complete Blood Count Auto Diff Today A08.4 - Viral intestinal infection, unspecified Comprehensive Met. Panel Today A08.4 - Viral intestinal infection, unspecified Referrals Cardiology Referral R00.1 - Bradycardia, unspecified Medications: New famotidine (Pepcid) 20 mg PO BID 60 tabs 0RF famotidine (Pepcid) 20 mg PO BID 60 tabs 0RF
--- OUTSIDE RECORDS SUMMARY | 2024-11-08 15:14 | XMS_ITS | Continuity of Care Document ---
Author Organization [facility] Address [address] [place] [address]- Care Team Providers Care Environmental Science Technician Name Role Phone Kamila Peguero Primary Care Physician [phone] Encounter [facility] Date(s): 11/06/24 - 11/06/[address] [address]- Discharge Disposition: A-D/C Home Attending Physician: Ana Bahena DO Admitting Physician: Ana Bahena DO Referring Physician: Not on Staff, Referring MD Encounter Type: Disch ES Allergies, Adverse Reactions, Alerts Substance Criticality Severity Reaction Reaction Severity Status Cats Active Dogs Active Dust Active Medications Claritin Tablet 10 mg, By Mouth, Daily, Maintenance, 12/01/11 10:18:03 AM EDT Start Date: 12/01/11 Status: Ordered Repeat number: 1 ferrous sulfate 325 mg oral enteric coated tablet 1 tablet = 325 mg, By Mouth, 2 times a day, # 180 tablet, 0 Refills, Maintenance, 12/28/11 10:26:10 AM EDT, EC Tablet, [id number] Start Date: 12/28/11 Stop Date: 03/27/12 Status: Ordered Quantity: 180.0 Unit: tablet Repeat number: 1 prochlorperazine 5 mg oral tablet 1 tablet = 5 mg, By Mouth, 2 times a day, PRN Nausea, # 10 tablet, 0 Refills, Maintenance, 11/06/24 8:35:00 AM EST, Tablet, [id number], Partial fill upon patient request if the prescription isfor a schedule II opioid drug., 160, cm, 11/06/24 7:38:00 EST, Height, 63.1, kg, 11/06/24 7:38:00 EST, Dry Weight Start Date: 11/06/24 Status: Ordered Quantity: 10.0 Unit: tablet Repeat number: 1 Problem List Condition Confirmation Course Effective Dates Status Health St atus Informant 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 Confirmed Active O/E - collapse - syncope Confirmed Active Vital Signs Most recent to oldest [Reference Range]: 1 2 Height 160 cm (11/06/24 7:38 AM) 160 cm (11/06/24 12:40 AM) Weight 63.1 kg (11/06/24 7:38 AM) 63.1 kg (11/06/24 12:40 AM) Oxygen Saturation [94-100 %] 99 % (11/06/24 7:38 AM) 100 % (11/06/24 12:40 AM) Pulse Rate [55-90 bpm] 46 bpm *L* (11/06/24 7:38 AM) 62 bpm (11/06/24 12:40 AM) Body Mass Index [18.5-24.99 kg/m2] 24.65 kg/m2 (11/06/24 7:38 AM) Blood Pressure [90-138/55-84 mm Hg] 123/ 73mm Hg (11/06/24 7:38 AM) 114/62mm Hg (11/06/24 12:40 AM) Respiratory Rate [16-30 br/min] 19 br/mi n (11/06/24 7:38 AM) 16 br/min (11/06/24 12:40 AM) Temperature [96.8-100.4 DegF] 97.7 DegF (11/06/24 7:38 AM) 98.4 DegF (11/06/24 12:40 AM) Mode of Delivery (Oxygen) Room air (11/06/24 7:38 AM) Room air (11/06/24 12:40 AM) Blood pressure sites Arm, left (11/06/24 7:38 AM) Arm, left (11/06/24 12:40 AM) Temperature Route Oral (11/06/24 7:38 AM) Temporal (11/06/24 12:40 AM) Dry Weight 63.1 kg (11/06/24 7:38 AM) 63.1 kg (11/06/24 12:40 AM) Weight Obtained Via Standing scale (2/17/25 12:40 AM) Dry Weight Obtained Via Standing scale (11/06/24 12:40 AM) Note * Ana Bahena DO: PERFORM Event Display: Patient Education Leaflets Authored Date: [id number] Zones Nausea ?? 428 ZONAS DE N? USEAS Y V??MITOS AGUDOS TODOS LOS D? Las n??useas y los v??mitos agudos comienzan en forma repentina, empeoran r??pidamente y curz pocotiempo. TODOS LOS D? : ??? [place] ye medicamento de la manera indicada por ye m??dico.?? Es importante que lo tome seg??n las instrucciones hasta completar el medicamento. ??? Tenga consigo jefe lista de medicamentos actualizada. ??? Es importante que acuda a jefe consulta de control con ye m??dico de cabecera en unos d??as.??? Pratibha abundante l??quido.?? Al menos 10 vasos de 8 onzas por d??a. ??? Coma porciones m??s tiara??as con frecuencia.?? Incluso si no tiene apetito. ??? [place] ye mejor esfuerzo por limitar el consumo de alcohol.?? Scooba puede aumentar el riesgo de tener n??useas y v??mitos. ??En qu?? noy est?? usted hoy? ??NIKOLAS, AMARILLA o CARLOS? NOY NIKOLAS TODO MEGHANN ??? Esta noy es ye meta ??? Mireya s??ntomas est??n bajo control cuando no tiene n??useas ov??mitos. NOY AMARILLA ?? DET??NGASE Y LLAME PELIGRO ??? Esta noy es jefe advertencia Si tiene leo o m??s de los siguientes: Llame a ye m??dico : ??? Tiene alguna pregunta o inquietud sobre mireya medicamentos o ye estado de delfin. ??? Hace arcadascon frecuencia (vomita carmel no sale nada del est??gail). ??? Mireya n??useas o v??mitos no mejoran ni desaparecen despu??s de luan el medicamento, comer comidas blandas o beber l??quidos. NOY CARLOS EMERGENCIA: No maneje usted mismo Busque atenci??n de inmediato si tiene cualquiera de los siguientes: ??? Ve kyle en el v??cathleen o en las heces. ??? Tiene inflamaci??n en el elan y pecho. ??? Tiene un dolor repentino y lizz en el pecho y el est??gail despu??s de vomitar mucho o hacer muchas arcadas. ??? Est?? mareado, tiene fr??o y sed, y los ojos y la boca est??n secos. No puede pensar con claridad. ??? Est?? orinando muy poco o nada. ??? Contin??a vomitando por m??s de 48 horas. ??? Tiene debilidad en los m??sculos, calambre en las piernas y problemas para respirar. ??? Ye coraz??n late mucho m??s r??pido que lo normal. ??? Tiene dolor en la parte posterior del elan o temblores faciales. ? Patient Care team information Care Team Personnel Name: Kamila Peguero Position: Reference Physician Member Role: PCP Address: [address] [place] [address]- Telecom: Care Team Related Persons Name: ROM MARTINEZ Name: KATHLEEN CUNNINGHAM Insurance Providers Guarantor name: ZEINAB Health Plan Information #: 1 Payer: [facility] Member Number: [id number] Policy Number: NA Group Number: [id number] Health Plan Information #: 2 Payer: [facility] Member Number: [id number] Policy Number: NA Group Number: [id number]
--- OUTSIDE RECORDS SUMMARY | 2024-11-08 15:14 | XMS_ITS | Clinical Summary ---
Author Organization [employer] Address [address] [place] [address] Care Team Providers Care Real Estate Consultant Name Role Phone Unavailable Primary Care Provider Unavailabl e Encounters Date Type Department Care Team Description 09/18/2024 Telephone [facility] ADULT DENTAL [address] [place] [address] Darnell Zuniga DDS no insurance emergency visit from Last 3 Months Social History Tobacco Use Types Packs/Day Years Used Date Smoking Tobacco: Never Assessed Comments Unknown Sex and Gender Information Value Date Recorded Sex Assigned at Female 09/18/2024 10:02 AM EST Legal Sex Female 9:51 AM EST Gender Identity Female 09/18/2024 10:02 AM EST Sexual Orientation Choose not to disclose 2023 10:02 AM EST Plan of Treatment Health Maintenance Due Date Last Done Comments Dental Oral Exam 1999 Dental Prophylaxis 1999 Dental X-Ray: Bitewings 1999 Dental X-Ray: Full Mouth 1999 Depression Screening 1999 HIV Screening 1999 SDOH Screening 1999 Alcohol/Substance Use Screening 2011 Tobacco Screening 2011 Family Planning (PISQ) 2014 HPV Vaccines (1 - 3-dose series) 2014 Hepatitis C Screening 2017 DTaP/Tdap/Td Vaccines (1 - Tdap) 2018 Hepatitis B Vaccines (1 of 3 - 19+ 3-dose series) 2018 Pap Smear 2020 COVID-19 Vaccine (1 - 2023-2 5 season) 2024 Influenza Vaccine (#1) 2024 Zoster Vaccines (1 of 2) 2049 RSV Patients and Pa tients Aged 60 years or older (1 - 1-dose 75+ series) 2074 HIB Vaccines Aged Out No longer eligi ble based on patient's age to complete this topic Hepatitis A Vaccines Aged Out No long er eligible based on patient's age to complete this topic IPV Vaccines Aged Out No longer eligi ble based on patient's age to complete this topic Meningococcal Vaccine Aged Out No german erik eligible based on patient's age to complete this topic Pneumococcal Vaccine: Pediat rics (0 to 5 Years) and At-Risk Patients (6 to 49) Years) Aged Out No longer eligible b ased on patient's age to complete this topic RSV under 20 months Aged Out No longe r eligible based on patient's age to complete this topic Rotavirus Vaccines Aged Out No longer eligible based on patient's age to complete this topic
--- OUTSIDE RECORDS SUMMARY | 2024-11-08 15:14 | XMS_ITS | Encounter Summary ---
Author Organization [employer] Address [address] [place] [address] Care Team Providers Care Dialer Name Role Phone Unavailable Primary Care Provider Unavailabl e Reason for Visit * Reason Onset Date Comments no insurance emergency visit 09/18/2024 Encounter Details Date Type Department Care Team (Late st Contact Info) Description 09/18/2024 Telephone [facility] ADULT DENTAL [address] [place], [place] [phone] Darnell Zuniga DDS [address] [place], [place] [phone] no insurance emergency visit Social History Tobacco Use Types Packs/Day Years Used Date Smoking Tobacco: Never Assessed Comments Unknown Sex and Gender Information Value Date Recorded Sex Assigned at Female 09/18/2024 10:02 AM EST Legal Sex Female 9:51 AM EST Gender Identity Female 09/18/2024 10:02 AM EST Sexual Orientation Choose not to disclose 2023 10:02 AM EST documented as of this encounter Miscellaneous Notes * Telephone Encounter - Abby Huff - 09/18/2024 10:04 AM EST Patient Guardian insurance currently coming up as no coverage. Patient has been informed to contactemployer to verify if there has been an insurance change and to reach back to me prior to appt withnew insurance information. Otherwise the patient has been informed to come in at least an hour prior to appt to 2nd or 3rd floor for assistance with insurance and/or sfs. Checked MMIS and patient does not have [employer] or [employer] documented in this encounter Plan of Treatment Not on file documented as of this encounter Visit Diagnoses Not on filedocumented in this encounter
[2024-11-08 15:19] VITALS: BP 98/62; PULSE 48; RESP 12; O2SAT 98; BMI 24.3
== END 2024-11-08 15:55 | disposition home or self-care (01) ==
PROVIDERS: PCP Physician Assistant; Visit Provider Physician Assistant
DX: R00.1 Bradycardia, unspecified (principal); A08.4 Viral intestinal infection, unspecified

== ENCOUNTER → 2024-11-08 15:07 | Outpatient (BNVA) | payer OTHER, SELFPAY | PROVIDERS: PCP Physician Assistant; Visit Provider Physician Assistant | DX: R00.1 Bradycardia, unspecified (principal); A04.8 Other specified bacterial intestinal infections | CPT/HCPCS: 93005 ==

== ENCOUNTER 2024-11-23 14:02 | Outpatient (AMB) | payer OTHER, SELFPAY ==
--- NOTE | 2024-11-23 14:25 | A.OFFPC_ITS ---
Vital Signs 11/23/24 14:28 Height 5 ft 3 in Weight 142 lb 4 oz BMI 25.2 BP 94/68 Blood Pressure Location Lt brachial Position Sitting Respiration 12 Pulse 58 Pulse Source Pulse Oximeter Pulse Oximetry (%) 98 Oxygen Delivery Method Room Air Intake Visit Reasons: 2-4 weeks Intake Note: Follow up Scrap Kettle Tender Required: No Allergies No Known Allergies [No Known Allergies*] Allergy (Verified 11/23/24 14:26) Medication List - Last Reconciled 11/23/24 by Kamila Murdock PA-C famotidine (Pepcid) 20 mg PO BID ferrous fumarate 324 mg PO DAILY mecobalamin (vitamin B12) 1,000 mcg sublingual DAILY ondansetron 4 mg PO Q6-8H PRN [potassium .] sertraline , Tobacco use date assessed: 03/08/24 Dental Screening Dental Screen Date: 03/08/24 HPI 2-4 weeks HPI Details Patient is a 23-year-old female with a significant history of iron- deficiency anemia, anxiety, depression who presents today for a follow up. She recently presented to [facility] [place] ER on 11/04 with complaints of abdominal pain, nausea, vomiting, diarrhea, fever and was noted to also have a low heart rate. She was diagnosed with acute viral gastritis. She then was not feeling better so she went to [facility] ED on 11/06 with similar complaints (diarrhea had resolved) and was noted to have a mildly low potassium but otherwise reassuring labs. Negative test. She was noted to have a persistently low heart rate and blood pressure. Today it seems like she has improved. She says that she has not noticed any low heart rate for dizziness. The viral symptoms went away after ten days. Her anxiety and depression symptoms are significantly improved with sertraline. She has been following with a therapist and psychiatrist. 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 1. Little interest or pleasure in doing things: several days 2. Feeling down, depressed, or hopeless: several days 3. Trouble falling or staying asleep, or sleeping too much: several days Source: Developed by Drs. Celso Regalado, Jennifer Hernadez, Ashutosh Ying and colleagues, with an educational roseline from [employer]. Thrive Questionnaire Date Thrive assessed: 11/08/24 I am a: Patient What is your living situation today?: I choose not to answer this question Within the past 12 months, did the food you bought not last and you didn't have the money to get more?: I choose not to answer this question Within the past 12 months, did you worry whether your food would run out before you got money to buy more?: I choose not to answer this question Do you have trouble paying for medicines?: I choose not to answer this question Do you have trouble getting transportation to medical appointments?: I choose not to answer this question Do you have trouble paying your heating and electricity bill?: I choose not to answer this question Do you have trouble taking care of your child, family member or friend?: I choose not to answer this question Do you have trouble with day-to-day activities such as bathing, preparing meals, shopping, managing finances, etc.?: I choose not to answer this question Are you currently unemployed and looking for a job?: I choose not to answer this question Are you interested in more education?: I choose not to answer this question Please select the resources that you would like help with: None Currently or been in a relationship where the following occur: I choose not to answer THRIVE Score: 0 Physical exam (Primary Care) Vital Signs: Last Vital Signs Pulse 58 11/23/24 14:28 Resp 12 11/23/24 14:28 BP 94/68 11/23/24 14:28 Pulse Ox 98 11/23/24 14:28 Oxygen Delivery Method Room Air 11/23/24 14:28 BMI result Body Mass Index 25.2 Tobacco/Smoking Status: Tobacco use Status Tobacco use date assessed 03/08/24 11/08/24 15:10 Patient Tobacco Use Status Never used Tobacco 11/08/24 15:10 e-Cigarette/Vaping Use Currently Using 11/08/24 15:10 Thrive Assessment: Date of Thrive Assessment Date Thrive assessed 11/08/24 11/23/24 14:03 Currently or been in a relationship where the following occur: I choose not to answer Const Orientation/consciousness: patient oriented x3 HENMT Ears: hearing grossly normal bilaterally Neck Thyroid: Thyroid normal Lymphatic: no lymphadenopathy noted Resp Auscultation: clear to auscultation bilaterally Cardio Rate: regular rate Rhythm: regular rhythm Heart sounds: S1 normal heart sound present and S2 normal heart sound present GI Inspection: Yes normal to inspection Palpation (GI): Soft to palpation and Other GI palpation findings present (nontender, no cva tenderness) Auscultation: normoactive bowel sounds Rectal Exam - Female: deferred Skin General skin exam: no rashes or lesions noted Neuro General: patient oriented x3, gait normal and no focal motor deficits Coding Level of Care Code Est Pt Level 4 (90556) Complex EM visit Add On G2211 Diagnoses Current severe episode of major depressive disorder F32.2 Generalized anxiety disorder with panic attacks F41.1; F41.0 Bradycardia R00.1 Assessment & Plan Assessment & Plan (1) Current severe episode of major depressive disorder: Code(s): F32.2 - Major depressive disorder, single episode, severe without psychotic features Category: Medical Plan: Significantly improved with sertraline. Continue current regimen. Continue following with behavioral health. (2) Generalized anxiety disorder with panic attacks: Code(s): F41.1 - Generalized anxiety disorder; F41.0 - Panic disorder [episodic paroxysmal anxiety] Category: Medical Plan: As above (3) Bradycardia: Code(s): R00.1 - Bradycardia, unspecified Category: Medical Plan: Improved with nutrition and hydration. Advised to recheck labs. She did have a Holter and echo last year which were. Asymptomatic. Would like to hold off on seeing Cardiology at this point.
[2024-11-23 14:28] VITALS: BP 94/68; PULSE 58; RESP 12; O2SAT 98; BMI 25.2
--- OUTSIDE RECORDS SUMMARY | 2024-11-23 17:10 | XMS_ITS | Clinical Summary ---
Author Organization [employer] Address [address] [place] [address] Care Team Providers Care Greenskeeper Name Role Phone Unavailable Primary Care Provider Unavailabl e Encounters Date Type Department Care Team Description 09/18/2024 Telephone [facility] ADULT DENTAL [address] [place] [address] Darnell Zuniga DDS no insurance emergency visit [...]
--- OUTSIDE RECORDS SUMMARY | 2024-11-23 17:11 | XMS_ITS | Continuity of Care Document ---
Author Organization [facility] Address [address] [place] [address]- Care Team Providers Care Sample Box Maker Name Role Phone Kamila Peguero Primary Care Physician [phone] Encounter [facility] Date(s): 11/09/24 - 11/09/[address] [address]- Encounter Diagnosis Hypokalemia(Final) - 11/09/24 Discharge Disposition: A-D/C Home Attending Physician: Rajeev Mcmillan MD Admitting Physician: Rajeev Mcmillan MD Referring Physician: Not on Staff, Referring MD [...] Quantity: 180.0 Unit: tablet Repeat number: 1 ondansetron 4 mg oral tablet, disintegrating 1 tablet = 4 mg, By Mouth, Every 8 hours, PRN Nausea & Vomiting, # 9 tablet, 0 Refills, Maintenance, 11/09/24 5:53:00 PM EST, Tablet, [id number], Partial fill upon patient request if the prescription is for a schedule II opioid drug., 160, cm, 11/09/24 14:04:00 EST, Height, 62, kg, 11/09/24 14:04:00 EST, Dry Weight Start Date: 11/09/24 Stop Date: 11/12/24 Status: Ordered Quantity: 9.0 Unit: tablet Repeat number: 1 potassium chloride 20 mEq oral tablet, extended release 1 tablet = 20 mEq, By Mouth, 2 times a day, with food, # 14 tablet, 0 Refills, Maintenance, :52:00 PM EST, ER Tablet, [facility] #[id number], Partial fill upon patient request if the prescription is for a schedule II opioid drug., 160, cm, 11/09/24 14:04:00 EST, Height, 62, kg, 11/09/24 14:04:00 EST, Dry Weight Start Date: 11/09/24 Stop Date: 11/16/24 Status: Ordered Quantity: 14.0 Unit: tablet Repeat number: 1 prochlorperazine 5 mg oral tablet 1 tablet = 5 mg, By Mouth, 2 times a day, PRN Nausea, # 10 tablet, 0 Refills, Maintenance, 11/06/24 8:35:00 AM EST, Tablet, [facility]/pharm[facility] #[id number], Partial fill upon patient request if [...] recent to oldest [Reference Range]: 1 2 3 Height 160 cm (11/09/24 5:56 PM) 160 cm (11/09/24 2:04 PM) 160 cm (11/09/24 11:19 AM) Weight 62 kg (11/09/24 5:56 PM) 62 kg (11/09/24 2:04 PM) 62 kg (11/09/24 11:19 AM) Oxygen Saturation [94-100 %] 99 % (11/09/24 5:56 PM) 98 % (11/09/24 2:04 PM) 98 % (11/09/24 11:19 AM) Pulse Rate [55-90 bpm] 60 bpm (11/09/24 5:56 PM) 54 bpm *L* (11/09/24 2:04 PM) 53 bpm *L* (11/09/24 11:19 AM) Body Mass Index [18.5-24.99 kg/m2] 24.22 kg/m2 (11/09/24 5:56 PM) 24.22 kg/m2 (11/09/24 2:04 PM) Blood Pressure [90-138/55-84 mm Hg] 115/69mm Hg (11/09/24 5:56 PM) 129/77mm Hg (11/09/24 2:04 PM) 128/81mm Hg (11/09/24 11:19 AM) Respiratory Rate [16-30 br/min] 20 br/min (11/09/24 5:56 PM) 18 br/min (11/09/24 2:04 PM) 16 br/min (11/09/24 11:19 AM) Temperature [96.8-100.4 DegF] 98.8 DegF (11/09/24 5:56 PM) 97.9 DegF (11/09/24 11:19 AM) Mode of Delivery (Oxygen) Room air (11/09/24 5:56 PM) Room air (11/09/24 2:04 PM) Room air (11/09/24 11:19 AM) Blood pressure sites Arm, left (11/09/24 5:56 PM) Arm, right (11/09/24 2:04 PM) Arm, left (11/09/24 11:19 AM) Temperature Route Oral (11/09/24 5:56 PM) Axillary (11/09/24 11:19 AM) Dry Weight 62 kg (11/09/24 5:56 PM) 62 kg (11/09/24 2:04 PM) 62 kg (11/09/24 11:19 AM) Weight Obtained Via Patient/family stated (11/09/24 11:19 AM) EKG study * Event Display: ECG 12-Lead Authored Date: [id number] Please click on pdf link to open report * Event Display: ECG 12-Lead Authored Date: [id number] Ventricular Rate: 51 BPM QRS Duration: 120 ms Q-T Interval: 436 ms QTC Calculation(Bazett): 401 ms R Hamilton: -36 degrees T Hamilton: 53 degrees Junctional rhythm with sinus beats Left axis deviation Non-specific intra-ventricular conduction delay Abnormal ECG When compared with ECG of 02-Feb-2024 10:11, Junctional rhythm is now present Confirmed by TIKI SEQUEIRA MD ([id number]) on 11/09/2024 7:07:16 PM [place]: TIKI SEQUERIA MD Note * Rajeev Mcmillan MD: PERFORM Event Display: Patient Education Leaflets Authored Date: [id number] Understanding Cyclic Vomiting Syndrome ([facility]) ?? [id number] ??Qu?? es el S??ndrome de v??cathleen c??clico (SVC)??? El s??ndrome de v??cathleen c??clico (SVC) es un problema de delfin poco com??n en adultos. Se produce cuando se tienen ataques o episodios de v??mitos repentinos y recurrentes. Los ataques pueden ocurrirdurante un per??odo de algunos d??as o semanas. Excluyendo los episodios, usted est?? jean-paul. Puede tener SVC jose g meses o hasta a??os. Causa del s??ndrome de v??cathleen c??clico Los investigadores no saben la causa exacta del SVC. Puede estar vinculado a problemas con el aparato digestivo u otras partes del cuerpo. Tambi??n puede ser gen??brian. Las personas con esta afecci??n a menudo tienen migra??as o un antecedente familiar de migra??as. ?? S??ntomas del s??ndrome de v??cathleen c??clico El s??ntoma principal del SVC son episodios de v??mitos repentinos y recurrentes. Estos pueden ocurrir varias veces al mes o varias veces al a??o. Los episodios siguen un patr??n similar cada vez quelos tiene. Suelen comenzar a la misma hora y durar aproximadamente la misma cantidad de tiempo (de horas a d??as). El patr??n es ??samantha para usted. Entre episodios, no tendr?? n??useas ni v??mitos. Puede tener estos otros s??ntomas jose g un ataque: ??? Dolor de est??gail ??? Jadeo ??? Fiebre ??? P??rdida del apetito ??? Mareos ??? Sensibilidad a la sandeep ??? Pereza ??? Diarrea?? Algunas personas con SVC descubren que los s??ntomas empiezan despu??s de un determinado desencadenante. Estos desencadenantes pueden incluir el estr??s, la falta de trisha??o, el abuso de sustancias, jefe infecci??n y determinados alimentos tacos el chocolate o el queso. En las mujeres, el s??ndrome puede suceder al mismo tiempo que wall per??odo menstrual. ?? Tratamiento para el s??ndrome de v??cathleen c??clico El tratamiento para el SVC puede incluir lo siguiente: ??? Medicamentos. Determinados medicamentos pueden ayudar a detener los v??mitos y las n??useas. Puede tener que tomarlos regularmente para evitar un ataque. O puede tener que tomarlos para detener o aliviar un episodio jefe vez que haya empezado. Los medicamentos pueden incluir aquellos utilizados para tratar migra??as y depresi??n, antihistam??nicos, antiem??ticos y algunos medicamentos anticonvulsivos. Tambi??n se recomiendan algunos suplementos, tacos Coenzima??Q10 (CoQ10). Yadi consulte a wall proveedor antes de empezar a luan cualquier suplemento o hierbas. ??? Cuidados de apoyo. Puede tener que permanecer en el hospital si tiene un choco grave de SVC. Burleigh es para ayudarlo a tratar o prevenir la deshidrataci??n. Puede necesitar l??quidos intravenosos. Los analg??sicos pueden ayudar a aliviar el dolor de est??gail. ??? Cambios en el estilo de jorge. Tratar de alejarse de los desencadenantes, tacos el estr??s o determinados alimentos, puede ayudar a evitar los s??ntomas. La meditaci??n, la relajaci??n, el mindfulness o atenci??n plena y la biorretroalimentaci??n pueden ayudar. Existe un s??ndrome similar por el consumo de cannabis. Evitar el consumo de cannabis ayuda a prevenir los s??ntomas en ruth tipo de s??ndrome de v??cathleen c??clico. ?? Posibles complicaciones del s??ndrome de v??cathleen c??clico ??? Deshidrataci??n ??? Es??fago irritadoo da??ado ??? Caries ??? Dolor de alex por migra??a ?? Cu??ndo llamar al?? 911 Llame al?? 911 si ocurre algo de lo siguiente: ??? Dificultad para respirar ??? Confusi??n ??? Somnolencia o dificultad para despertarse ??? Desmayo o p??rdida del conocimiento ??? Frecuencia card??tatum acelerada ??? Dolor de pecho ?? Cu??ndo llamar al proveedor de atenci??n m??dica?? Llame al proveedor de atenci??n m??dica o busque otro tipo de atenci??n m??dica de inmediato ante cualquiera de las siguientes situaciones: ??? Fiebre de 100.4?F (38?C) o superior, o seg??n lo que le haya indicado el proveedor de atenci??n m??dica ??? V??mitos continuos (incapacidad de retener l??quidos) jose g 24 horas ??? Menos orina de lo habitual o sed extrema ??? Dolor que empeora ???S??ntomas que no se alivian o que empeoran ??? S??ntomas nuevos ?? Last Reviewed Date: 2022 ?? [id number] [employer]. All rights reserved. This information is not intended as a substitute for professional medical care. Always follow your healthcare professional's instructions. ?? Patient Care team information Care Team Personnel Name: Kamila Peguero Position: Reference Physician Member Role: PCP Address: [address] [place] [address] Telecom: Care Team Related Persons Name: ROM MARTINEZ Name: KATHLEEN CUNNINGHAM Insurance Providers Guarantor name: [id number] Health Plan Information #: 1 Payer: PRIME Member Number: [id number] Policy Number: NA Group Number: NA Health Plan Information #: 2 Payer: PRIME Member Number: [id number] Policy Number: NA Group Number: NA
--- OUTSIDE RECORDS SUMMARY | 2024-11-23 17:11 | XMS_ITS | Encounter Summary ---
Author Organization [employer] Address [address] [facility] [address] [place] [address] Care Team Providers Care Mechanic Recovery Name Role Phone Unavailable Primary Care Provider Unavailabl e Reason for Visit * Reason Onset Date Comments no insurance emergency visit 09/18/2024 Encounter Details Date Type Department Care Team (Late st Contact Info) Description 09/18/2024 Telephone [facility] [address], [place] [phone] Darnell Zuniga DDS [address], [place] [phone] no insurance emergency visit Social History Tobacco [...]
== END 2024-11-23 14:48 | disposition home or self-care (01) ==
PROVIDERS: PCP Physician Assistant; Visit Provider Physician Assistant
DX: F32.2 Major depressive disorder, single episode, severe without psychotic features (principal); F41.1 Generalized anxiety disorder; F41.0 Panic disorder [episodic paroxysmal anxiety]; R00.1 Bradycardia, unspecified

== ENCOUNTER → 2024-11-23 14:02 | Outpatient (BNVA) | payer OTHER, SELFPAY | PROVIDERS: PCP Physician Assistant; Visit Provider Physician Assistant ==

== ENCOUNTER 2024-11-23 15:14 | Outpatient (REF) | payer OTHER, SELFPAY ==
[2024-11-23 17:47] LABS: MANUAL DIFF FLAG NO
[2024-11-23 17:58] LABS: Basophils Percent Auto 0.5 % (0-2); Eosinophils Absolute Auto 0.2 X10*3/uL (0.0-0.4); Eosinophils Percent Auto 2.5 % (0-4); Hematocrit 37.3 % (37.0-47.0); Imm Gran Abs Auto 0.03 X10*3/uL (0.00-0.03); Imm Gran Pct Auto 0.4 % (0.0-0.4); Lymphocytes Percent Auto 25.8 % (20-40); Mean Corpuscular HGB Conc 32.2 g/dl (31.0-35.0); Mean Corpuscular Hemoglobin 30.1 pg (27.0-33.0); Mean Corpuscular Volume 93.5 fL (80.0-98.0); Mean Platelet Volume 11.3 fL (9.4-12.3); Monocytes Absolute Auto 0.5 X10*3/uL (0.1-1.2); Neutrophils Absolute Auto 4.8 x10*3/uL (2.0-8.3); Neutrophils Percent Auto 63.8 % (45-73); Platelet Count 240 X10*3/uL (160-400); Red Blood Count 3.99 X10*6/uL (4.20-5.50); Red Cell Distribution Width 14.3 % (11.0-16.0); White Blood Count 7.6 X10*3/uL (4.8-10.8)
[2024-11-23 18:35] LABS: Alanine Aminotransferase 21 U/L (0-31); Albumin Level 4.3 g/dL (3.5-5.0); Alkaline Phosphatase 61 U/L (39-117); Anion Gap 11 (12-20); Aspartate Amino Transferase 29 U/L (5-31); Bilirubin Total 0.5 mg/dL (0.0-1.0); Blood Urea Nitrogen 10 mg/dL (9-16); Calcium 9.3 mg/dL (8.4-10.2); Carbon Dioxide 27 mmol/L (22-29); Chloride 106 mmol/L (96-108); Estimated Glomerular Filt Rate > 60; Glucose Random 83 mg/dL (60-115); Potassium 3.7 mmol/L (3.3-5.1); Sodium 140 mmol/L (135-145); Total Protein 7.6 g/dL (6.5-8.0)
--- OUTSIDE RECORDS SUMMARY | 2024-11-23 18:44 | XMS_ITS | Encounter Summary ---
Author Organization [employer] Address [address] [facility] [address] [place] [address] Care Team Providers Care Senior Product Integrity Engineer Name Role Phone Unavailable Primary Care Provider Unavailabl e Reason for Visit * Reason Onset Date Comments no insurance emergency visit 09/18/2024 Encounter Details Date Type Department Care Team (Late st Contact Info) Description 09/18/2024 Telephone [facility] [address] [place], [place] [phone] Darnell Zuniga DDS [address] [place], [place] [phone] no insurance emergency visit Social History Tobacco [...]
--- OUTSIDE RECORDS SUMMARY | 2024-11-23 18:44 | XMS_ITS | Clinical Summary ---
Author Organization [employer] Address [address] [facility] [address] [place] [address] Care Team Providers Care Gold Frame Assembler Name Role Phone Unavailable Primary Care Provider Unavailabl e Encounters Date Type Department Care Team Description 09/18/2024 Telephone [facility] [address] [place] [address] Darnell Zuniga DDS no insurance emergency visit [...]
== END 2024-11-23 15:15 | disposition home or self-care (01) ==
LOC: HO.WFDLDS 15:14
PROVIDERS: Visit Provider Physician Assistant
DX: A08.4 Viral intestinal infection, unspecified (principal)
CPT/HCPCS: 36415; 80053; 85025

== ENCOUNTER 2025-03-19 08:09 | Emergency (ER) | payer OTHER, SELFPAY ==
--- NOTE | ~2025-03-19 | US_ITS ---
EXAMINATION: US ABDOMEN LIMITED HISTORY: RUQ pain, GB only please TECHNIQUE: Real-time grayscale ultrasound imaging of the bladder was performed and images were reviewed. COMPARISON: Correlation is made with an abdominal ultrasound dated 02/12/2024. FINDINGS: The gallbladder is unremarkable in appearance without evidence of stones, wall thickening, or pericholecystic fluid. There is no sonographic Dutton sign. The common bile duct is normal in caliber measuring 3 mm in diameter. US/US abdomen limited IMPRESSION: Unremarkable ultrasound of the gallbladder. Electronically signed by: Celso Mtz MD 03/19/2025 10:43 AM EDT
[2025-03-19 08:16] VITALS: BP 106/60; PULSE 54; RESP 16; TEMP 36.9; O2SAT 100; BMI 23.7
[2025-03-19 08:42] LABS: MANUAL DIFF FLAG NO
[2025-03-19 08:44] LABS: Basophils Absolute Auto 0.1 X10*3/uL (0.0-0.2); Basophils Percent Auto 0.6 % (0-2); Eosinophils Absolute Auto 0.3 X10*3/uL (0.0-0.4); Eosinophils Percent Auto 3.3 % (0-4); Hematocrit 34.8 % (37.0-47.0); Hemoglobin 11.6 g/dl (12.0-16.0); Imm Gran Abs Auto 0.04 X10*3/uL (0.00-0.03); Imm Gran Pct Auto 0.4 % (0.0-0.4); Lymphocytes Absolute Auto 2.2 X10*3/uL (1.2-4.9); Lymphocytes Percent Auto 22.9 % (20-40); Mean Corpuscular HGB Conc 33.3 g/dl (31.0-35.0); Mean Platelet Volume 11.9 fL (9.4-12.3); Monocytes Absolute Auto 0.6 X10*3/uL (0.1-1.2); Monocytes Percent Auto 6.3 % (2-11); Neutrophils Absolute Auto 6.4 x10*3/uL (2.0-8.3); Neutrophils Percent Auto 66.5 % (45-73); Platelet Count 175 X10*3/uL (160-400); Red Blood Count 3.74 X10*6/uL (4.20-5.50); Red Cell Distribution Width 13.6 % (11.0-16.0); White Blood Count 9.6 X10*3/uL (4.8-10.8)
--- NOTE | 2025-03-19 08:50 | PC.NURSE ---
Pt brought into ED8, pt asked to change into gown. reporting that she had an episode of vomiting and diarrhea Wednesday and had no symptoms on Wednesday. Pt reporting that her symptoms have returned today. She has had multiple episodes. has history of some GI issues but that this feels different. Pt reporting no abd pain at this time. Reporting THC usage and ETOH this weekend. Denies anyone else being sick that had the same food as her. Awaiting provider at this time, call ayers within reach
[2025-03-19 09:07] LABS: Alanine Aminotransferase 9 U/L (0-31); Albumin Level 4.3 g/dL (3.5-5.0); Alkaline Phosphatase 55 U/L (39-117); Anion Gap 9 (12-20); Aspartate Amino Transferase 23 U/L (5-31); Bilirubin Total 0.2 mg/dL (0.0-1.0); Blood Urea Nitrogen 10 mg/dL (9-16); Calcium 8.5 mg/dL (8.4-10.2); Carbon Dioxide 26 mmol/L (22-29); Chloride 109 mmol/L (96-108); Creatinine Clr Calc Pharmacy 92.3; Estimated Glomerular Filt Rate > 60; Glucose Random 87 mg/dL (60-115); Potassium 3.5 mmol/L (3.3-5.1); Sodium 140 mmol/L (135-145); Total Protein 6.7 g/dL (6.5-8.0)
--- OUTSIDE RECORDS SUMMARY | 2025-03-19 09:09 | XMS_ITS | Encounter Summary ---
Author Organization [facility] Address [address] [place] [phone] Phone Care Team Providers Care Farm Crew Member Name Role Phone Keely Tate MD Primary Care Provider Encounter Details Date Type Department Care Team (Late st Contact Info) Description 12/25/2011 Documentation [facility] [address] [place] [address] Family Medicine, Physician [address], [place] [phone] Social History Tobacco Use Types Packs/Day Years Used Date Smoking Tobacco: Never Assessed Comments Unknown Sex and Gender Information Value Date Recorded Sex Assigned at Not on file Legal Sex Female 5:06 PM EDT Gender Identity Not on file Sexual Orientation Not on file documented as of this encounter Plan of Treatment Not on file documented as of this encounter Visit Diagnoses Not on filedocumented in this encounter Care Teams Farm Crew Member Relationship Specialty Start Date End Date Keely Tate MD [address] [place] [address] PCP - General 04/30/17 03/31/23 documented as of this encounter
--- NOTE | 2025-03-19 09:13 | ED.ABDPAIN ---
HPI - Abdominal Pain General Chief Complaint: Abdominal Pain Stated Complaint: vomitng Time Seen by Provider: 03/19/25 08:36 Source: patient and old records reviewed Mode of arrival: ambulatory Limitations: no limitations History of Present Illness ED Provider: WILFREDO BORDEN narrative: 24 yo female with PMH of gastritis but no abdominal surgery states on Wednesday she had two glasses of wine about 2 hours later she developed diffuse abd pain n/v/d. No fevers, no dysuria, no GIB symptoms. She notes yesterday was normal and she felt much better she was able to eat. She then notes upon waking this AM all of her symptoms returned. She denies sick contacts, food exposures, abx use, travel. MD elicited complaint: abdominal pain Pertinent past history: none Onset (ago): day(s) (2) Pain Consistency: intermittent Location: diffuse Severity: moderate Quality: aching Radiation: none Migration to: no migration Exacerbating factors: eating and vomiting Relieving factors: nothing Context: history of similar episodes Associated symptoms: nausea, vomiting and diarrhea Related Data Home Medications ?Medication ?Instructions ?Recorded ?Confirmed sertraline 25 mg tablet mg PO DAILY 11/08/24 11/23/24 Previous Rx's ?Medication ?Instructions ?Recorded ferrous fumarate 324 mg (106 mg 324 mg PO DAILY #90 tabs 07/10/24 iron) tablet ondansetron 4 mg disintegrating 4 mg PO Q6-8H PRN nausea and 11/05/24 tablet vomiting #14 tabs famotidine 20 mg tablet (Pepcid) 20 mg PO BID #60 tabs 12/06/24 mecobalamin (vitamin B12) 1,000 1,000 mcg sublingual DAILY #90 tabs 12/15/24 mcg disintegrating tablet,sublingual famotidine 20 mg tablet (Pepcid) 20 mg PO DAILY PRN abdominal 03/19/25 discomfort #30 tabs ondansetron 4 mg disintegrating 4 mg PO Q8H PRN nausea and 03/19/25 tablet vomiting #20 tabs Allergies Allergy/AdvReac Type Severity Reaction Status Date / Time No Known Allergies (No Known Allergy Verified 03/19/25 08:22 Allergies*) Review of Systems Review of Systems Constitutional : No Weight loss, No Fever, No Chills ENT/Mouth : No sore throat, No Rhinorrhea Eyes: No Swelling, No Redness Cardiovascular : No Chest Pain, No SOB, NoEdema Respiratory : No Cough, No Sputum, No Wheezing Gastrointestinal : Positive Nausea, Positive Vomiting, positive Diarrhea, positive abdominal Pain, No Hematochezia, No Melena Genitourinary : No Dysuria, No Urinary Frequency, No Hematuria, No Urgency Musculoskeletal : No joint pain, No Myalgias, No Joint Swelling Skin : No Skin Lesions, No rash Neuro : No Weakness, No Numbness, No Dizziness, No Headache All other systems reviewed and are negative. FORMERLY [facility], [facility] Past Medical History Attestation statement: The following information was validated with the patient. 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 Oriented X3. No acute distress. Eyes: Pupils equal, round and reactive to light. ENT: Pharynx normal. Neck: Normal inspection. Neck supple. CVS: Normal heart rate and rhythm. Pulses normal. Respiratory: No respiratory distress. Breath sounds normal. Abdomen: Soft and mild ttp throughout, diffuse . + graham's sign Skin: Skin warm and dry. Normal skin color. Normal skin turgor. Extremities: No lower extremity edema. No calf ttp Neuro: Oriented X 3. No motor deficit. No sensory deficit. CN2-12 intact Medical Decision Making Medical Decision Making MDM Narrative: 24 yo female with PMH of gastritis but no abdominal surgery now here with c/o abdominal pain n/v/d on and off which started after wine drinking. At this time will need labs, IVF, US of abdomen to evaluate GB. She could have viral syndrome, gastritis, pancreatitis, biliary colic. Differential Diagnosis Differential Diagnoses: The differential diagnosis associated with the presentation includes gastritis, viral syndrome, pancreatitis, biliary colic Admission/Observation Consideration of admission/observation: Escalation of care including admission/observation considered work up reassuring feels better stable for DC Lab Data MDM Lab Attestation statement: I reviewed the patient's lab results. 03/19/25 08:29 03/19/25 08:29 Labs: Lab Results 03/19/25 03/19/25 Range/Units 08:29 11:13 WBC 9.6 (4.8-10.8) X10*3/uL RBC 3.74 L (4.20-5.50) X10*6/uL Hgb 11.6 L (12.0-16.0) g/dl Hct 34.8 L (37.0-47.0) % MCV 93.0 (80.0-98.0) fL MCH 31.0 (27.0-33.0) pg MCHC 33.3 (31.0-35.0) g/dl RDW 13.6 (11.0-16.0) % Plt Count 175 D (160-400) X10*3/uL MPV 11.9 (9.4-12.3) fL Immature Gran % (Auto) 0.4 (0.0-0.4) % Neut % (Auto) 66.5 (45-73) % Lymph % (Auto) 22.9 (20-40) % [place] % (Auto) 6.3 (2-11) % Eos % (Auto) 3.3 (0-4) % Baso % (Auto) 0.6 (0-2) % Lymph # (Auto) 2.2 (1.2-4.9) X10*3/uL [place] # (Auto) 0.6 (0.1-1.2) X10*3/uL Eos # (Auto) 0.3 (0.0-0.4) X10*3/uL Baso # (Auto) 0.1 (0.0-0.2) X10*3/uL Abs Immat Gran (auto) 0.04 H (0.00-0.03) X10*3/uL Absolute Neuts (auto) 6.4 (2.0-8.3) x10*3/uL Absolute Nucleated RBC 0.000 (0.0-0.012) X10*3/uL Nucleated RBC % (auto) 0.0 (0.0-0.2) /100WBC Sodium 140 (135-145) mmol/L Potassium 3.5 (3.3-5.1) mmol/L Chloride 109 H (96-108) mmol/L Carbon Dioxide 26 (22-29) mmol/L Anion Gap 9 L (12-20) BUN 10 (9-16) mg/dL Creatinine 0.77 (0.5-1.4) mg/dL Estim Creat Clear Calc 92.3 Estimated GFR > 60 Random Glucose 87 (60-115) mg/dL Calcium 8.5 D (8.4-10.2) mg/dL Total Bilirubin 0.2 (0.0-1.0) mg/dL AST 23 (5-31) U/L ALT 9 (0-31) U/L Alkaline Phosphatase 55 (39-117) U/L Total Protein 6.7 (6.5-8.0) g/dL Albumin 4.3 (3.5-5.0) g/dL Lipase 33 (8-78) U/L Urine Color Yellow Urine Appearance Clear Urine pH 6.0 (5.0-9.0) Ur Specific [place] 1.025 (1.005-1.025) Urine Protein Trace (Neg-Trace) mg/dL Urine Glucose (UA) Negative (Negative) mg/dL Urine Ketones Trace (Negative) mg/dL Urine Blood Negative (Negative) Urine Nitrite Negative (Negative) Ur Leukocyte Esterase Trace H (Negative) Urine RBC 0-2 (0-2) /HPF Urine WBC 0-5 (0-5) /HPF Ur Squamous Epith Cells 3-5 (0-2) /HPF Urine Bacteria 1+ (None Seen) Hyaline Casts 0-2 (0-2) /LPF Urine Test NEGATIVE (NEGATIVE) Independent Interpretation I performed an independent interpretation of an: Ultrasound (normal ) Radiology Impression Discussion of test interpretation with radiology: I have reviewed the radiologist's reading. External Record Review External record reviewed: Outpatient record Prescription Management I considered prescription management with: Other Medications Administered Discontinued Medications Generic Name Dose Route Start Last Admin Trade Name Damien PRN Reason Stop Dose Admin Famotidine 20 mg 03/19/25 09:01 03/19/25 09:16 Famotidine/Pf 20 Mg/2 Ml Vial IVPUSH 03/19/25 09:02 20 mg ONCE ONE Administration Lactated Ringer's 1,000 mls @ 999 mls/hr 03/19/25 09:01 03/19/25 11:09 Lr IV 03/19/25 10:01 Infused .Q1H1M ONE Infusion Ketorolac Tromethamine 15 mg 03/19/25 09:01 03/19/25 09:17 Ketorolac Tromethamine 15 Mg/Ml Vial IVPUSH 03/19/25 09:02 15 mg ONCE ONE Administration Ondansetron HCl 4 mg 03/19/25 09:01 03/19/25 09:16 Ondansetron Hcl 4 Mg/2 Ml Vial IVPUSH 03/19/25 09:02 4 mg ONCE ONE Administration Discharge Plan Discharge Clinical Impression: Nausea vomiting and diarrhea Abdominal pain Qualifiers: Abdominal location: generalized Qualified Code(s): R10.84 - Generalized abdominal pain Patient Disposition: Home, Self-Care Instructions: Acute Nausea and Vomiting (ED), Acute Diarrhea (ED), Abdominal Pain (ED) Additional Instructions: return for worsening symptoms or concerns labs and urine reassuring ultrasound no acute findings in gallbladder return for any worsening symptoms or concerns bland diet and no alcohol for 72 hours rest and stay hydrated Prescriptions: New famotidine [Pepcid] 20 mg tablet 20 mg PO DAILY PRN (Reason: abdominal discomfort) Qty: 30 0RF ondansetron 4 mg tablet,disintegrating 4 mg PO Q8H PRN (Reason: nausea and vomiting) Qty: 20 0RF No Action ferrous fumarate 324 mg (106 mg iron) tablet 324 mg PO DAILY Qty: 90 3RF famotidine [Pepcid] 20 mg tablet 20 mg PO BID Qty: 60 0RF mecobalamin (vitamin B12) 1,000 mcg tablet,disintegrating 1,000 mcg sublingual DAILY Qty: 90 0RF Rx Instructions: place tablet under tongue and allow to dissolve for at least30 secs before swallowing ondansetron 4 mg tablet,disintegrating 4 mg PO Q6-8H PRN (Reason: nausea and vomiting) Qty: 14 0RF sertraline 25 mg tablet PO DAILY Rx Instructions: , Stand Alone Forms: Work/School Release Print Language: Solomon Islander
[2025-03-19] MEDS: ondansetron HCL 4 MG/2 ML VIAL IVPUSH (09:16)
[2025-03-19] MEDS: Lactated Ringers 1,000 ML 999 ML IV (09:16)
[2025-03-19] MEDS: Famotidine/PF 20 MG/2 ML VIAL IVPUSH (09:16)
[2025-03-19] MEDS: Ketorolac Tromethamine 15 MG/ML VIAL IVPUSH (09:17)
[2025-03-19 09:31] LABS: Lipase 33 U/L (8-78)
[2025-03-19 11:09] VITALS: BP 101/37; PULSE 69; RESP 18; TEMP 36.6; O2SAT 99
[2025-03-19 11:24] LABS: Appearance Urine Clear; Color Urine Yellow; Glucose Urine UA Negative (Negative); Leukocyte Esterase Urine Trace (Negative); Nitrite Urine Negative (Negative); Specific Gravity - Urine 1.025 (1.005-1.025); UMIC TRIGGER UACC YES; Urine Blood Negative (Negative); Urine Ketones Trace mg/dL (Negative); Urine Protein Trace mg/dL (Neg-Trace)
[2025-03-19 11:25] LABS: UPreg QC Valid YES; Urine Pregnancy NEGATIVE (NEGATIVE)
[2025-03-19 11:32] LABS: Bacteria Urine 1+ (None Seen); Hyaline Casts Urine 0-2 /LPF (0-2); RBC Urine 0-2 /HPF (0-2); WBC Urine 0-5 /HPF (0-5)
[2025-03-19 12:06] VITALS: BP 96/56; PULSE 54; RESP 16; TEMP 36.8; O2SAT 98
== END 2025-03-19 12:07 | disposition home or self-care (01) ==
PROVIDERS: Emergency Provider Emergency Medicine; PCP Physician Assistant
DX: R10.84 Generalized abdominal pain (principal); R11.2 Nausea with vomiting, unspecified; R19.7 Diarrhea, unspecified; Z79.899 Other long term (current) drug therapy
CPT/HCPCS: 36415; 76705; 80053; 81001; 81025; 83690; 85025; 96361; 96374; 96375; 99284; 99285; J1308; J1885; J2405; J7120

== ENCOUNTER → 2025-03-19 09:01 | Outpatient (BNV) | payer OTHER, SELFPAY | PROVIDERS: Emergency Provider Emergency Medicine; PCP Physician Assistant; Visit Provider Radiology Diagnostic Radiology | DX: R10.11 Right upper quadrant pain (principal) | CPT/HCPCS: 76705 ==

== ENCOUNTER 2025-03-21 10:04 | Outpatient (AMB) | payer OTHER, SELFPAY ==
--- NOTE | 2025-03-21 10:10 | A.OFFVIS_ITS ---
Vital Signs 03/21/25 10:15 Height 5 ft 3 in Weight 134 lb BMI 23.7 BP 118/68 Blood Pressure Location Lt brachial Position Sitting Pulse 54 Pulse Source Pulse Oximeter Intake Visit Reasons: new patient dx bradicardia Allergies No Known Allergies (No Known Allergies*) Allergy (Verified 03/19/25 08:22) Medication List - Last Reconciled 03/21/25 by Brett Nunez MD famotidine (Pepcid) 20 mg PO DAILY PRN mecobalamin (vitamin B12) 1,000 mcg sublingual DAILY ondansetron 4 mg PO Q8H PRN sertraline , HPI Comments Details: This is a cardiology consultation regarding bradycardia. Patient herself does not have any known issues including congenital heart disease or any arrhythmias or cardiomyopathy or anything else of concern. She has been noticed have slow heart rates at different times and hence she has been referred. Looking at the vital sign trend, she has had heart rate in the 50s going back even to 2020. In 2023, she has had heart rates in the 40s per vital signs. When terms of symptoms, she does not have any exertional limitations like chest pains or shortness of breath. She states that she has had dizzy feelings at times that has been related to iron levels. Otherwise, it seems that she has lost a signi ficant amount of weight in the last 4 years. In October of this year, she has had episodes of nausea vomiting and diarrhea with the abdominal pain. Following that, it seems that she has lost another 20 lb or so in weight. In 2020, she weight 175 lb. In 2023, around 155 lb and currently 134 lb. Unclear etiology for all his weight loss. This could also be leading to bradycardia. [facility] Medical History Abnormal abdominal ultrasound Ovarian cyst Family History (Updated 03/21/25 @ 10:19 by Jaye Harding) Mother No problems noted. 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 [employer] Current occupational exposures/hazards: No Cognitive needs: No Hearing needs: No Vision needs: Yes (glasses ) Review of Systems Const Denies weakness ENT Reports dizziness Card Denies chest pain, Denies chest pain with activity, Denies syncope, Denies rapid heart rate, Denies pedal edema, Denies edema, Denies leg edema, Denies lightheadedness, Denies palpitations, Denies dyspnea, Denies dyspnea on exertion and Denies orthopnea Resp Denies cough, Denies dyspnea and Denies dyspnea on exertion GI Denies hematochezia and Denies change in stool character Musc Denies abnormal gait, Denies muscle cramps, Denies muscle weakness, Denies numbness, Denies radiating pain into limb and Denies tingling Neuro Denies abnormal gait, Reports dizziness, Denies syncope, Denies numbness, Denies tingling and Denies weakness Endo Denies palpitations Physical Exam Vital Signs: Last Vital Signs Pulse 54 03/21/25 10:15 BP 118/68 03/21/25 10:15 BMI result Body Mass Index 23.7 Const General: comfortable and no acute distress Orientation/consciousness: patient oriented x3 HEENT Other: Unremarkable Head: Yes normal to inspection Neck Neck: Yes normal visual inspection Chest Chest palpation & inspection: normal inspection of the chest Resp Auscultation: clear to auscultation bilaterally Cardio Palpation: normal PMI Heart sounds: S1 normal heart sound present, S2 normal heart sound present, no gallops, no murmurs and no rubs GI Palpation (GI): Soft to palpation Back/Spine/Pelvis Other: unremarkable Skin General skin exam: no rashes or lesions noted Neuro General: patient oriented x3 Extrem General: Yes normal to inspection Psych Mental Status: mental status grossly normal Assessment & Plan Assessment & Plan (1) Bradycardia: Code(s): R00.1 - Bradycardia, unspecified Category: Medical (2) Weight loss: Code(s): R63.4 - Abnormal weight loss Category: Medical Plan Cardiac data reviewed. EKG from December shows sinus bradycardia at 49/Min with leftward axis incomplete right bundle-branch block pattern. In the EKG from last year, sinus bradycardia, sinus arrhythmia at 58/Min. In the study even prior to that, sinus bradycardia/sinus arrhythmia at 48/Min. Echocardiogram with LVEF of 60%. Normal diastolic function. No significant valvular findings and otherwise unremarkable. In the Holter monitor, underlying rhythm is sinus with an average rate of 69/Min. No significant pauses. Overall, she has got sinus bradycardia which seems rather chronic for the last several years. Weight loss may play some role. No specific treatment for the bradycardia itself. Mainly reassurance. With regard to the question of 40+ lb weight loss and GI symptoms, refer to gastroenterology. Orders: Referrals Gastroenterology Referral R10.9 - Unspecified abdominal pain, R63.4 - Abnormal weight loss Coding Level of Care Code New Pt Level 3 (22937) Diagnoses Bradycardia R00.1 Weight loss R63.4
[2025-03-21 10:15] VITALS: BP 118/68; PULSE 54; BMI 23.7
--- OUTSIDE RECORDS SUMMARY | 2025-03-21 10:35 | XMS_ITS | Clinical Summary ---
Author Organization [facility] ity Address [address] [place] [address] Care Team Providers Care Histotechnologist Supervisor Name Role Phone Unavailable Primary Care Provider Unavailabl e Surgical History Surgery Date Site/Laterality Comments OTHER SURGICAL HISTORY PROCEDURE: DENIES PREVIOUS SURGERY Family History Medical History Relation Name Comments No Known Problems Father No Known Problems Mother Diabetes Paternal Grandfather Hypertension Paternal Grandfather Arthritis Paternal Grandmother Diabetes Paternal Grandmother Hypertension Paternal Grandmother Relation Name Status Comments Father Alive Mother Alive Paternal Grandfather Paternal Grandmother Social History Tobacco Use Types Packs/Day Years Used Date Smoking Tobacco: Never Smokeless Tobacco: Never Alcohol Use Standard Drinks/Week Comments No 0 (1 standard drink = 0.6 oz pur e alcohol) Comments Unknown Sex and Gender Information Value Date Recorded Sex Assigned at Not on file Legal Sex Female 5:45 AM EST Gender Identity Not on file Sexual Orientation Not on file Obstetrics History Plan of Treatment Health Maintenance Due Date Last Done Comments HPV Vaccines (1 - 3-dose series) 2014 DTaP,Tdap,and Td Vaccines (1 - Tdap) 2018 Hepatitis B Vaccines (1 of 3 - 19+ 3-dose series) 2018 Cervical Cancer Screening: P ap Smear 2020 COVID-19 Vaccine ( - 2023-2 5 season) 2024 Influenza Vaccine (#1) 2025 HIB Vaccines Aged Out No longer eligi ble based on patient's age to complete this topic Hepatitis A Vaccines Aged Out No long er eligible based on patient's age to complete this topic IPV Vaccines Aged Out No longer eligi ble based on patient's age to complete this topic MMR Vaccines Aged Out No longer eligi ble based on patient's age to complete this topic Meningococcal ACWY Vaccine Aged Out N o longer eligible based on patient's age to complete this topic Meningococcal B Vaccine Aged Out No l onger eligible based on patient's age to complete this topic Pneumococcal Vaccine: Pediat rics (0 to 5 Years) and At-Risk Patients (6 to 64 Years) Aged Out No longer eligible b ased on patient's age to complete this topic RSV Immunization Patients Un judy 20 months Aged Out No longer eligible b ased on patient's age to complete this topic Varicella Vaccines Aged Out No longer eligible based on patient's age to complete this topic
--- OUTSIDE RECORDS SUMMARY | 2025-03-21 10:35 | XMS_ITS | Clinical Summary ---
Author Organization [employer] Address [address] [facility] [address] [place] [address] Care Team Providers Care Property Custodian Name Role Phone Unavailable Primary Care Provider Unavailabl e Social History Tobacco Use Types Packs/Day Years [...] 1999 HIV Screening 1999 SDOH Screening 1999 Disability Screening 1999 Alcohol/Substance Use Screening 2011 Tobacco Screening 2011 Family Planning (PISQ) 2014 HPV Vaccines (1 - 3-dose series) 2014 Hepatitis C Screening 2017 DTaP/Tdap/Td Vaccines (1 - Tdap) 2018 Hepatitis B Vaccines (1 of 3 - 19+ 3-dose series) 2018 Pap Smear 2020 COVID-19 Vaccine (1 - 2023-2 5 season) 2024 Influenza Vaccine (Season Ended) 2025 Zoster Vaccines (1 of 2) 2049 RSV [...] Years) and At-Risk Patients (6 to 49) Years Aged Out No longer eligible b ased on patient's age to complete this topic RSV under 20 months Aged Out No longe r eligible based on patient's age to complete this topic Rotavirus Vaccines Aged Out No longer eligible based on patient's age to complete this topic
--- OUTSIDE RECORDS SUMMARY | 2025-03-21 10:35 | XMS_ITS | Encounter Summary ---
Author Organization [facility] Address [address] [place] [address] Phone Care Team Providers Care Meter Repair Shop Supervisor Name Role Phone Keely Tate MD Primary Care Provider [phone] Encounter Details Date Type Department Care Team (Late st Contact Info) Description 12/25/2011 Documentation [facility] Family Medicine [address] [place] [address] Family Medicine, Physician [address], [place] [id number] Social History Tobacco Use Types Packs/Day Years [...] on filedocumented in this encounter Care Teams Meter Repair Shop Supervisor Relationship Specialty Start Date End Date Keely Tate MD [address] [place] [address] PCP - General 04/30/17 03/31/23 documented as of this encounter
== END 2025-03-21 10:34 | disposition home or self-care (01) ==
LOC: HO.HCS 10:05
PROVIDERS: PCP Physician Assistant; Visit Provider Internal Medicine
DX: R00.1 Bradycardia, unspecified (principal); R63.4 Abnormal weight loss
CPT/HCPCS: 99213

== ENCOUNTER 2025-03-30 15:36 | Outpatient (REF) | payer OTHER, SELFPAY ==
[2025-03-30 17:31] LABS: Hemoglobin A1C 104.0350 umol/L; Total Hemoglobin (HGBA1C) 3183.1465 umol/L
[2025-03-31 08:53] LABS: HBS Num1 1.94 mIU/mL (0-7.99); HBc Num1 0.15 S/CO (0.00-0.79); HBsAGNum1 0.43 S/CO (0.00-0.99); HIV Num 1 0.09 S/CO (0.00-0.99); Hepatitis A Antibody IgM 0.17 Index (0-0.79); Hepatitis B Surface Antigen Negative (Negative); ~HepC Num1 0.12 S/CO (0.00-0.79); ~Hepatitis A Antibody IgM Nonreactive (Nonreactive); ~Hepatitis B Surface Antibody NONREACTIVE (Nonreactive); ~Hepatitis C Antibody Nonreactive (Nonreactive)
== END 2025-03-30 15:37 | disposition home or self-care (01) ==
LOC: HO.LAB 15:36
PROVIDERS: PCP Physician Assistant; Visit Provider Nurse Practitioner Family
DX: R63.4 Abnormal weight loss (principal); R19.5 Other fecal abnormalities; Z13.1 Encounter for screening for diabetes mellitus
CPT/HCPCS: 36415; 83036; 84443; 86140; 86364; 86704; 86706; 86709; 86803; 87340; 87389

== ENCOUNTER 2025-03-30 15:36 | Outpatient (AMB) | payer OTHER, SELFPAY ==
--- OUTSIDE RECORDS SUMMARY | 2025-03-30 15:38 | XMS_ITS | Encounter Summary ---
Author Organization [facility] Address [address] [place] [address] Phone Care Team Providers Care Assistant In Nursing Name Role Phone Keely Tate MD Primary Care Provider Encounter Details Date Type Department Care Team (Late st Contact Info) Description 12/25/2011 Documentation [facility] Family Medicine [address] [place] [address] Family Medicine, Physician [address] [phone] Social History Tobacco Use Types Packs/Day Years [...] on filedocumented in this encounter Care Teams Assistant In Nursing Relationship Specialty Start Date End Date Keely Tate MD [address] [place] [address] PCP - General 04/30/17 03/31/23 documented as of this encounter
--- OUTSIDE RECORDS SUMMARY | 2025-03-30 15:38 | XMS_ITS | Clinical Summary ---
Author Organization [facility] ity Address [address] [place] [address] Care Team Providers Care Plant Safety Leader Name Role Phone Unavailable Primary Care Provider [...] 5 Years) and At-Risk Patients (6 to 49 Years) Aged Out No longer eligible b ased on patient's age to complete this topic RSV Immunization Patients Un judy 20 months Aged Out No longer eligible b ased on patient's age to complete this topic Varicella Vaccines Aged Out No longer eligible based on patient's age to complete this topic
--- OUTSIDE RECORDS SUMMARY | 2025-03-30 15:38 | XMS_ITS | Clinical Summary ---
Author Organization [employer] Address [address] [facility] [address] [place] [address] Care Team Providers Care Safety And Occupational Health Manager Name Role Phone Unavailable Primary Care Provider [...] 5 season) 2024 Influenza Vaccine (#1) 2025 Zoster Vaccines (1 of 2) 2049 [...]
--- NOTE | 2025-03-30 15:46 | MHC.OFFVIS ---
Vital Signs 03/30/25 15:47 Height 5 ft 3 in Weight 138 lb BMI 24.4 Blood Pressure Location Lt brachial Position Sitting Oxygen Delivery Method Room Air Intake Visit Reasons: Vomiting, cardio req EGD consult. Intake Note: New pt consult for chronic vomiting, bradycardia, abd pain. Referred by Dr. Nunez. Needs EGD consult. Patient cc: Director Behavioral Health Required: No Accompanied by: Self / Same As Patient Allergies No Known Allergies (No Known Allergies*) Allergy (Verified 03/30/25 15:46) PFSH Medical History Abnormal abdominal ultrasound Ovarian cyst Family History Mother No problems noted. 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
[2025-03-30 15:47] VITALS: BP 98/52; PULSE 49; BMI 24.4
--- NOTE | 2025-03-30 15:50 | A.OFFVIS_ITS ---
Vital Signs 03/30/25 15:47 Height 5 ft 3 in Weight 138 lb BMI 24.4 BP 98/52 L Blood Pressure Location Lt brachial Position Sitting Pulse 49 L Oxygen Delivery Method Room Air Intake Visit Reasons: Vomiting, cardio req EGD consult. Intake Note: New pt consult for chronic vomiting, bradycardia, abd pain. Referred by Dr. Nunez. Needs EGD consult. Patient cc: abdominal pain on and off, acid reflux on and off, between diarrhea and constipation. Denies any other GI issues for today. Allergies No Known Allergies (No Known Allergies*) Allergy (Verified 03/30/25 15:46) HPI HPI Vomiting, cardio req EGD consult.: Details: Patient is a 24-year-old female with PMH of vitamin deficiency, JORGE, asthma and bradycardia. Referred by Cardiology for further evaluation of abdominal pain and unintentional weight loss. Since November 03, 2024, after consuming Polish food, she experienced near-syncope, sweating, and multiple episodes of vomiting. She reports sharp abdominal pains all over her stomach, sometimes severe enough to affect her gait and posture, with intermittent nausea and vomiting. She has altered bowel habits with constipation alternating with diarrhea, typically having bowel movements 3 times a week, often with diarrhea ( type 6 on [place] Stool Scale) ways that. She complains of occasional really strong heartburn triggered by foods like spaghetti and meatballs. She has lost 30 pounds since October, from 156 pounds in April to current weight of 138 pounds, due to illness and 7-day hospitalization with poor oral intake and vomiting. During episodes of sharp abdominal pain, she experiences simultaneous vomiting and diarrhea. She denies blood in stools, difficulty swa llowing, or intentional weight loss. She drinks water, orange juice, and Gatorade for hydration when feeling her sugar is dropping and becoming pale. Her gallbladder was previously evaluated due to pain but no intervention was deemed necessary. Patient denies: fever/chills, n/v, appetite changes,regurgitation,dysphasia, unintentional wt loss or melena/hematochezia. Social hx: - Daily marijuana use - Alcohol once monthly since 2020 - Has a boyfriend - Consumes orange juice and Gatorade frequently - family hx as below -denies personal hx of CA -tolerated anesthesia in the past without difficulty. [facility] Medical History (Updated 03/30/25 @ 17:25 by Priscila Perez CNP) Acid reflux Change in stool Abnormal abdominal ultrasound Ovarian cyst Family History Mother No problems noted. 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 [employer] Current occupational exposures/hazards: No Cognitive needs: No Hearing needs: No Vision needs: Yes (glasses ) Review of Systems Const Reports as per HPI ENT Reports as per HPI Card Reports as per HPI Resp Reports as per HPI GI Reports as per HPI Reports as per HPI Physical Exam Vital Signs: Oxygen Delivery Method Room Air 03/30/25 15:47 BMI result Body Mass Index 24.4 Const General: healthy appearing, no acute distress and well developed Nutritional Appearance: well nourished Orientation/consciousness: patient oriented x3 HEENT Head: Yes normal to inspection, Yes normocephalic and Yes atraumatic Face and sinus: Yes normal facial exam Eyes General: appearance normal, both eyes and all related structures Neck Neck: Yes normal visual inspection Resp Effort & Inspection: normal respiratory effort, able to speak in complete sentences, no tracheal deviation and symmetric chest movement Auscultation: clear to auscultation bilaterally Cardio Jugular venous distension: no JVD Rate: regular rate Rhythm: regular rhythm Heart sounds: S1 normal heart sound present, S2 normal heart sound present, no gallops and no murmurs GI Inspection: Yes normal to inspection, No distended and Yes striae Palpation (GI): Soft to palpation, not firm, nontender and No hepatosplenomegaly present Auscultation: normal bowel sounds Neuro General: patient oriented x3 Gait exam (Neuro): Normal gait present Psych Appearance: grossly normal Mental Status: mental status grossly normal Speech and movement: Normal speech and movement present Affect: normal affect Attitude: cooperative Thought process: Normal thought process present Thought content: Normal thought content present Insight: Good insight present (Psych) Judgement: Good judgement present (Psych) Results Reviewed Results Reviewed: [facility] [address] [place] [address] Ultrasound Report Signed Patient: Roc Selby MR#: [id number] : 2000 Acct:[id number] Age/Sex: 24 / F ADM Date: 03/19/25 Loc: HO.ED Attending Dr: Ordering Physician: Ashley Dempsey DO Date of Service: 03/19/25 Procedure(s): US abdomen limited Accession Number(s): [id number] cc: Ashley Dempsey DO; Kamilapepper Murdock~ EXAMINATION: US ABDOMEN LIMITED HISTORY: RUQ pain, GB only please TECHNIQUE: Real-time grayscale ultrasound imaging of the bladder was performed and images were reviewed. COMPARISON: Correlation is made with an abdominal ultrasound dated 02/12/2024. FINDINGS: The gallbladder is unremarkable in appearance without evidence of stones, wall thickening, or pericholecystic fluid. There is no sonographic Dutton sign. The common bile duct is normal in caliber measuring 3 mm in diameter. US/US abdomen limited IMPRESSION: Unremarkable ultrasound of the gallbladder. Electronically signed by: Celso Mtz MD 03/19/2025 10:43 AM EDT RP Assessment & Plan Assessment & Plan (1) Weight loss: Code(s): R63.4 - Abnormal weight loss Category: Medical Plan: Subjective unintentional 30-pound weight loss since October 2024. Based on recorded weight there has been an approx 18lb or 11.5% weight loss since 05/2024. Differential Diagnosis: Malignancy, thyroid imbalance, Chronic Infection, Malabsorption Syndrome - Order chest X-ray. - Include thyroid function tests and glucose levels in blood work. - Evaluate for infections and viral causes in blood work. - Assess inflammatory markers. -endoscopy as below (2) Change in stool: Code(s): R19.5 - Other fecal abnormalities Category: Medical Plan: Constipation alternating with diarrhea, bowel movements approximately 3 times per week. Differentials Diagnosis: IBD VS IBS VS constipation overlap. - Prescribe MiraLAX, start with one capful daily, adjust based on stool consistency. - Recommend increased dietary fiber intake. - Prescribe fiber supplement tablets for daily use. - Advise increased water intake and reduction of sugary drinks. - will consider colonoscopy at time of EGD if above workup unyielding. (3) Acid reflux: Code(s): K21.9 - Gastro-esophageal reflux disease without esophagitis Category: Medical Qualifiers: Esophagitis presence: esophagitis presence not specified Qualified Code(s): K21.9 - Gastro-esophageal reflux disease without esophagitis Plan: Intermittent heartburn, particularly severe with certain foods. Differential Diagnosis:GERD, Hiatal Hernia, Functional Dyspepsia - Continue Pepcid daily. - upper endoscopy. Education on GERD prevention : -Advised against heavy meals; encouraged small, frequent meals instead of large ones. - Instructed to remain upright for 2?3 hours after eating. - Advised to avoid late-night meals, spicy foods, caffeine, alcohol, known dietary triggers, and tight-fitting clothing. - Emphasis placed on gradual implementation of lifestyle changes to improve adherence and symptom control. (4) Abdominal pain: Code(s): R10.9 - Unspecified abdominal pain Category: Medical Qualifiers: Abdominal location: generalized Qualified Code(s): R10.84 - Generalized abdominal pain Plan: Severe abdominal pain with simultaneous vomiting and diarrhea since October 2024. Reviewed unremarkable U/S from 03/19/25 (see above). Differential Diagnosis: Peptic Ulcer Disease, Inflammatory Bowel Disease, Constipation - Order stool testing, including H. pylori. - Order comprehensive blood work. - Schedule upper endoscopy. - Continue Pepcid daily, but discontinue 48-72 hours before stool sample collection. - Recommend trial of marijuana cessation to evaluate impact on symptoms. Plan Follow up in 6 weeks or sooner as needed Time: I spent a total of 45 minutes on the date of encounter which includes: Preparing to see the patient (reviewed previous documentation, test results and medical history) Performing a medically appropriate exam and/or evaluation Ordering medications, tests, and procedures Documenting clinical information in the health record Orders: Orders TSH reflex Free T4 Today R63.4 - Abnormal weight loss Hepatitis A,B,C Profile Today R63.4 - Abnormal weight loss HIV Ab/Ag Today R63.4 - Abnormal weight loss Calprotectin, Fecal Today R19.5 - Other fecal abnormalities Hemoglobin A1c Today R63.4 - Abnormal weight loss C Reactive Protein Today R63.4 - Abnormal weight loss XR chest 2V Today R63.4 - Abnormal weight loss Transglutaminase IgA Today R19.5 - Other fecal abnormalities H pylori Ag Stool Today R19.5 - Other fecal abnormalities Medications: New methylcellulose (laxative) (Citrucel) Take one tablet daily 500 mg PO DAILY 90 tabs 1RF polyethylene glycol 3350 (Miralax) Take 17G (one cap full) daily with 8oz of water 17 grams PO DAILY 510 grams 2RF constipation 30 days Coding Level of Care Code New Pt New Pt Level 4 (04288) Patient Type New Diagnoses Weight loss R63.4 Change in stool R19.5 Gastroesophageal reflux disease, unspecified whether esophagitis present K21.9 Esophagitis presence: esophagitis presence not specified Generalized abdominal pain R10.84 Abdominal location: generalized
== END 2025-03-30 16:35 | disposition home or self-care (01) ==
LOC: HO.HGI 15:37
PROVIDERS: PCP Physician Assistant; Visit Provider Nurse Practitioner Family
DX: R63.4 Abnormal weight loss (principal); R19.5 Other fecal abnormalities; K21.9 Gastro-esophageal reflux disease without esophagitis; R10.84 Generalized abdominal pain
CPT/HCPCS: 99204

== ENCOUNTER 2025-04-04 11:41 | Outpatient (AMB) | payer OTHER, SELFPAY ==
--- NOTE | 2025-04-04 11:38 | A.OFFPC_ITS ---
Intake Visit Reasons: Discuss labs, low iron Intake Note: Discuss labs Structural Shop Helper Required: No Allergies No Known Allergies (No Known Allergies*) Allergy (Verified 03/30/25 15:46) Medication List - Last Reconciled 04/04/25 by Kamila Murdock PA-C famotidine (Pepcid) 20 mg PO DAILY PRN mecobalamin (vitamin B12) 1,000 mcg sublingual DAILY methylcellulose (laxative) (Citrucel) 500 mg PO DAILY ondansetron 4 mg PO Q8H PRN polyethylene glycol 3350 (Miralax) 17 grams PO DAILY 30 days sertraline , Tobacco use date assessed: 04/04/25 Dental Screening Dental Screen Date: 04/04/25 HPI Discuss labs, low iron HPI Details Pt is a 24 y/o female who presents today for a follow up. GI: She states since Oct when she was sick with a GI bug she has had this intermittent abdominal pain that is sharp and causes n/v. She states it can be triggered by eating or not. She was sick in Oct and lost about 17 lbs from last documented weight (154 lbs in fall 2023). She states she lost that weight all over the course of a couple weeks of being sick and since then has been around 138. She has not continued to lose weight but has not really gained back the weight. She is not trying to lose weight. She did see GI and had cxr ordered (not completed), stool study (not yet submitted) and labs. Labs overall reassuring. She is pending further GI workup and imaging. She did have an unrevealing abdominal u/s. -last year in January [address] she [address] a [address] abd/pelvis for abdominal pain and was noted to have colitis. She also was recommended to see gen surgery for possible gb disease. She did follow with gen surgery who did not feel intervention was necessary at that time. She has not had any blood in stool. She does have NANCY and is unable to tolerate iron supplements. She wants to try children vitamin. CV: has persistent bradycardia and is not currently symptomatic. She did follow with cardiology. [facility] Medical History (Updated 03/30/25 @ 17:25 by Priscila Perez CNP) Acid reflux Change in stool Abnormal abdominal ultrasound Ovarian cyst Family History Mother No problems noted. 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 How often do you have a drink containing alcohol?: Monthly or less 2. How many drinks containing alcohol do you have on a typical day when you are drinking?: 1 or 2 3. How often do you have six or more drinks on one occasion?: Never Total Score: 1 Physical exam (Primary Care) Tobacco/Smoking Status: Tobacco use Status Tobacco use date assessed 04/04/25 04/04/25 11:40 Patient Tobacco Use Status Never used Tobacco 04/04/25 11:40 e-Cigarette/Vaping Use Currently Using 04/04/25 11:40 Thrive Assessment: Date of Thrive Assessment Date Thrive assessed 11/08/24 04/04/25 11:40 Telehealth Telehealth Telehealth Platform: Telephone Location of provider rendering services: practice address Location of patient: address on file Patient Identification confirmed using: Name, : Yes Telehealth method: voice only Patient verbally consented to treatment: Yes Patient verbally consented to billing insurance company: Yes Patient informed of any privacy concerns related to visit: Yes Minutes spent on Phone/Video with Pt.: 25 Results Reviewed Results Reviewed: Laboratory Tests 03/19/25 03/30/25 08:29 16:58 WBC 9.6 RBC 3.74 L Hgb 11.6 L Hct 34.8 L Plt Count 175 D Sodium 140 Potassium 3.5 Chloride 109 H Carbon Dioxide 26 Anion Gap 9 L BUN 10 Creatinine 0.77 Estim Creat Clear Calc 92.3 Estimated GFR > 60 Random Glucose 87 Estimat Average Glucose 100 Hemoglobin A1c % 5.1 Total Bilirubin 0.2 AST 23 ALT 9 Alkaline Phosphatase 55 C-Reactive Protein < 0.10 TSH 1.69 US/US abdomen limited IMPRESSION: Unremarkable ultrasound of the gallbladder. Electronically signed by: Celso Mtz MD 03/19/2025 10:43 AM EDT RP Coding Level of Care Code Tele Est Pt Level 4 (57962) Diagnoses Iron deficiency anemia due to chronic blood loss D50.0 Anemia type: iron deficiency Iron deficiency anemia type: chronic blood loss Bradycardia R00.1 Weight loss R63.4 Generalized abdominal pain R10.84 Abdominal location: generalized Assessment & Plan Assessment & Plan (1) Anemia: Code(s): D64.9 - Anemia, unspecified Category: Medical Qualifiers: Anemia type: iron deficiency Iron deficiency anemia type: chronic blood loss Qualified Code(s): D50.0 - Iron deficiency anemia secondary to blood loss (chronic) Plan: try children iron supplement otc and will recheck discussed possible ref to hematology but wants to hold off until labs (2) Bradycardia: Code(s): R00.1 - Bradycardia, unspecified Category: Medical Plan: stable (3) Weight loss: Code(s): R63.4 - Abnormal weight loss Category: Medical Plan: ct abdomen pelvis ordered advised to complete stool studies and cxr she will be getting additional work up with GI (4) Abdominal pain: Code(s): R10.9 - Unspecified abdominal pain Category: Medical Qualifiers: Abdominal location: generalized Qualified Code(s): R10.84 - Generalized abdominal pain Plan: as above. will follow up pending test results Orders: Orders Complete Blood Count Auto Diff Today D50.0 - Iron deficiency anemia secondary to blood loss (chronic), R00.1 - Bradycardia, unspecified, R63.4 - Abnormal weight loss IRON PROFILE Today D50.0 - Iron deficiency anemia secondary to blood loss (chronic), R00.1 - Bradycardia, unspecified, R63.4 - Abnormal weight loss Ferritin Today D50.0 - Iron deficiency anemia secondary to blood loss (chronic), R00.1 - Bradycardia, unspecified, R63.4 - Abnormal weight loss CT abdomen pelvis wo IV con Today R10.84 - Generalized abdominal pain, R63.4 - Abnormal weight loss
--- OUTSIDE RECORDS SUMMARY | 2025-04-04 12:47 | XMS_ITS | Encounter Summary ---
Author Organization [facility] Address [address] [place] [address] Phone Care Team Providers Care Vehicle Glass Technician Name Role Phone Keely Tate MD Primary Care Provider Encounter Details Date Type Department Care Team (Late st Contact Info) Description 12/25/2011 Documentation [facility] [place] [address] [place] [address] Family Medicine, Physician [address] [phone] Social History Tobacco Use Types Packs/Day Years [...] on filedocumented in this encounter Care Teams Vehicle Glass Technician Relationship Specialty Start Date End Date Keely Tate MD [address] [place] [address] PCP - General 04/30/17 03/31/23 documented as of this encounter
--- OUTSIDE RECORDS SUMMARY | 2025-04-04 12:47 | XMS_ITS | Clinical Summary ---
Author Organization [facility] ity Address [address] [place] [address] Care Team Providers Care Testing Director Name Role Phone Unavailable Primary Care Provider [...]
--- OUTSIDE RECORDS SUMMARY | 2025-04-04 12:47 | XMS_ITS | Clinical Summary ---
Author Organization [employer] Address [address] [facility] [address] [place] [address] Care Team Providers Care Rubber Cutting Machine Tender Name Role Phone Unavailable Primary Care Provider [...]
== END 2025-04-04 17:05 | disposition home or self-care (01) ==
LOC: HO.HMCFM 11:41
PROVIDERS: PCP Physician Assistant; Visit Provider Physician Assistant
DX: D50.0 Iron deficiency anemia secondary to blood loss (chronic) (principal); R00.1 Bradycardia, unspecified; R63.4 Abnormal weight loss; R10.84 Generalized abdominal pain

== ENCOUNTER 2025-05-08 15:06 | Outpatient (REF) | payer OTHER, SELFPAY ==
--- NOTE | ~2025-05-08 | XR_ITS ---
EXAMINATION: XR CHEST CLINICAL INFORMATION: R63.4 - Abnormal weight loss COMPARISON: 04/10/2024 TECHNIQUE: 2 views of the chest were obtained. FINDINGS: The cardiac, hilar, and mediastinal contours are normal. The lungs are clear bilaterally. There is no pneumothorax or pleural effusion. There is no focal osseous or soft tissue abnormality. XR/XR chest 2V IMPRESSION: Normal chest. Electronically signed by: Luke Bee MD 05/08/2025 03:21 PM EDT
--- OUTSIDE RECORDS SUMMARY | 2025-05-08 16:25 | XMS_ITS | Clinical Summary ---
Author Organization [employer] Address [address] [facility] [address] [place] [address] Care Team Providers Care Flexible Machining System Machinist Name Role Phone Unavailable Primary Care Provider [...]
--- OUTSIDE RECORDS SUMMARY | 2025-05-08 16:25 | XMS_ITS | Encounter Summary ---
Author Organization [facility] Address [address] [place] [address] Phone Care Team Providers Care Agile Tester Name Role Phone Keely Tate MD Primary Care Provider Encounter Details Date Type Department Care Team (Late st Contact Info) Description 12/25/2011 [place] [facility] [place] [address] [place] [address] Family Medicine, Physician [address] [place], [place] [phone] Social History Tobacco Use Types Packs/Day Years [...] on filedocumented in this encounter Care Teams Agile Tester Relationship Specialty Start Date End Date Keely Tate MD [address] [place] [address] PCP - General 04/30/17 03/31/23 documented as of this encounter
--- OUTSIDE RECORDS SUMMARY | 2025-05-08 16:25 | XMS_ITS | Clinical Summary ---
Author Organization [facility] ity Address [address] [place] [address] Care Team Providers Care Business Support Coordinator Name Role Phone Unavailable Primary Care Provider [...] Screening: P ap Smear 2020 COVID-19 Vaccine (1 - 2023-2 5 season) 2024 Depression Screening 09/20/2024 Influenza Vaccine (#1) 2025 HIB Vaccines Aged [...]
== END 2025-05-08 15:07 | disposition home or self-care (01) ==
LOC: HO.XRAY 15:06
PROVIDERS: PCP Physician Assistant; Visit Provider Nurse Practitioner Family
DX: R63.4 Abnormal weight loss (principal)
CPT/HCPCS: 71046

== ENCOUNTER → 2025-05-08 15:10 | Outpatient (BNV) | payer OTHER, SELFPAY | PROVIDERS: PCP Physician Assistant; Visit Provider Radiology Diagnostic Radiology | DX: R63.4 Abnormal weight loss (principal) | CPT/HCPCS: 71046 ==

== ENCOUNTER 2025-05-09 15:05 | Outpatient (AMB) | payer OTHER, SELFPAY ==
--- NOTE | 2025-05-09 15:10 | A.OFFPC_ITS ---
Vital Signs 05/09/25 15:11 Height 5 ft 3 in Weight 135 lb 4 oz BMI 24.0 BP 98/56 L Blood Pressure Location Lt brachial Position Sitting Respiration 12 Pulse 44 L Pulse Source Pulse Oximeter Temp 98.7 F Temp Source Oral Pulse Oximetry (%) 98 Oxygen Delivery Method Room Air Intake Visit Reasons: meds and ct Intake Note: Medication follow up. CT not scheduled until 06/11/25. Endoscopy and colonoscopy scheduled in June. Had chest xray yesterday. Ethanol Operations Manager Required: No Allergies No Known Allergies (No Known Allergies*) Allergy (Verified 05/09/25 15:11) Medication List - Last Reconciled 05/09/25 by Kamila Murdock PA-C famotidine (Pepcid) 20 mg PO BID PRN mecobalamin (vitamin B12) 1,000 mcg sublingual DAILY methylcellulose (laxative) (Citrucel) 500 mg PO DAILY ondansetron 4 mg PO Q8H PRN polyethylene glycol 3350 (Miralax) 17 grams PO DAILY 30 days sertraline , Tobacco use date assessed: 05/09/25 Dental Screening Dental Screen Date: 04/04/[address] HPI Details Pt is a 24 y/o female who presents today for a follow up. GI: She states since Oct when she was sick with a GI bug she has had this intermittent abdominal pain that is sharp and causes n/v. She states it can be triggered by eating or not. She was sick in Oct and lost about 17 lbs from last documented weight (154 lbs in fall 2023). She states she lost that weight all over the course of a couple weeks of being sick and since then has been around 138. She has not continued to lose weight but has not really gained back the weight. She is not trying to lose weight. She did see GI and had cxr ordered which was just completed yesterday and normal, stool study (not yet submitted) and labs. Labs overall reassuring. She is pending further GI workup and imaging. She did have an unrevealing abdominal u/s. -last year in January [address] a [address] abd/pelvis for abdominal pain and was noted to have colitis. She also was recommended to see gen surgery for possible gb disease. She did follow with gen surgery who did not feel intervention was necessary at that time. -I did order an abdominal and pelvis CT which is not yet completed. She states that they were booking far out and were unable to book her until June 11. She has not had any blood in stool. She does have NANCY and is unable to tolerate iron supplements. She wants to try children vitamin. CV: has persistent bradycardia and is not currently symptomatic. She did follow with cardiology. [facility] Medical History (Updated 03/30/25 @ 17:25 by Priscila Perez CNP) Acid reflux Change in stool Abnormal abdominal ultrasound Ovarian cyst Family History Mother No problems noted. 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 4. Feeling tired or having little energy: nearly every day 5. Poor appetite or overeating: nearly every day 6. Feeling bad about yourself - or that you are a failure or have let yourself or your family down: more than half the days 7. Trouble concentrating on things, such as reading the newspaper or watching television: several days 8. Moving or speaking so slowly that other people could have noticed. Or the opposite - being so fidgety or restless that you have been moving around a lot more than usual: several days 9. Thoughts that you would be better off or of hurting yourself in some way: not at all Source: Developed by Drs. Celso Regalado, Jennifer Hernadez, Ashutosh Ying and colleagues, with an educational roseline from [employer]. Thrive Questionnaire Date Thrive assessed: 11/08/24 I am a: Patient What is your living situation today?: I choose not to answer this question Within the past 12 months, did the food you bought not last and you didn't have the money to get more?: I choose not to answer this question Within the past 12 months, did you worry whether your food would run out before you got money to buy more?: I choose not to answer this question Do you have trouble paying for medicines?: I choose not to answer this question Do you have trouble getting transportation to medical appointments?: I choose not to answer this question Do you have trouble paying your heating and electricity bill?: I choose not to answer this question Do you have trouble taking care of your child, family member or friend?: I choose not to answer this question Do you have trouble with day-to-day activities such as bathing, preparing meals, shopping, managing finances, etc.?: I choose not to answer this question Are you currently unemployed and looking for a job?: I choose not to answer this question Are you interested in more education?: I choose not to answer this question Please select the resources that you would like help with: None Currently or been in a relationship where the following occur: I choose not to answer THRIVE Score: 0 Physical exam (Primary Care) Vital Signs: Last Vital Signs Temp 98.7 F 05/09/25 15:11 Pulse 44 L 05/09/25 15:11 Resp 12 05/09/25 15:11 BP 98/56 L 05/09/25 15:11 Pulse Ox 98 05/09/25 15:11 Oxygen Delivery Method Room Air 05/09/25 15:11 BMI result Body Mass Index 24.0 Tobacco/Smoking Status: Tobacco use Status Tobacco use date assessed 05/09/25 05/09/25 15:18 Patient Tobacco Use Status Never used Tobacco 05/09/25 15:10 e-Cigarette/Vaping Use Currently Using 05/09/25 15:10 Thrive Assessment: Date of Thrive Assessment Date Thrive assessed 11/08/24 05/09/25 15:10 Currently or been in a relationship where the following occur: I choose not to answer Const Orientation/consciousness: patient oriented x3 HENMT Ears: hearing grossly normal bilaterally Neck Thyroid: Thyroid normal Lymphatic: no lymphadenopathy noted Resp Auscultation: clear to auscultation bilaterally Cardio Rate: regular rate Rhythm: regular rhythm Heart sounds: S1 normal heart sound present and S2 normal heart sound present GI Inspection: Yes normal to inspection Palpation (GI): Soft to palpation and Other GI palpation findings present (nontender, no cva tenderness) Auscultation: normoactive bowel sounds Rectal Exam - Female: deferred Skin General skin exam: no rashes or lesions noted Neuro General: patient oriented x3, gait normal and no focal motor deficits Coding Level of Care Code Est Pt Level 4 (97930) Complex EM visit Add On G2211 Diagnoses Weight loss R63.4 Gastroesophageal reflux disease, unspecified whether esophagitis present K21.9 Esophagitis presence: esophagitis presence not specified Assessment & Plan Assessment & Plan (1) Weight loss: Code(s): R63.4 - Abnormal weight loss Category: Medical Plan: We will try to get CT at a different location (2) Acid reflux: Code(s): K21.9 - Gastro-esophageal reflux disease without esophagitis Category: Medical Qualifiers: Esophagitis presence: esophagitis presence not specified Qualified Code(s): K21.9 - Gastro-esophageal reflux disease without esophagitis Plan: Continue current regimen. Continue follow up with GI. Plan She will follow up sooner if anything worsens or changes. Patient understands and agrees with this plan.
[2025-05-09 15:11] VITALS: BP 98/56; PULSE 44; RESP 12; TEMP 37.1; O2SAT 98; BMI 24.0
--- OUTSIDE RECORDS SUMMARY | 2025-05-09 16:01 | XMS_ITS | Clinical Summary ---
Author Organization [employer] Address [address] [facility] [address] [place] [address] Care Team Providers Care Manager Strategy Name Role Phone Unavailable Primary Care Provider [...]
--- OUTSIDE RECORDS SUMMARY | 2025-05-09 16:01 | XMS_ITS | Encounter Summary ---
Author Organization [facility] Address [address] [place] [phone] Phone Care Team Providers Care Engine Repairer Production Name Role Phone Keely Tate MD Primary Care Provider Encounter Details Date Type Department Care Team (Late st Contact Info) Description 12/25/2011 Documentation [facility] [place] [address] [place] [address] Family Medicine, Physician [address], [place] [phone] Social History Tobacco Use Types Packs/Day Years [...] on filedocumented in this encounter Care Teams Engine Repairer Production Relationship Specialty Start Date End Date Keely Tate MD [address] [place] [address] PCP - General 04/30/17 03/31/23 documented as of this encounter
--- OUTSIDE RECORDS SUMMARY | 2025-05-09 16:01 | XMS_ITS | Clinical Summary ---
Author Organization [facility] ity Address [address] [place] [address] Care Team Providers Care Deputy Bailiff Name Role Phone Unavailable Primary Care Provider [...]
== END 2025-05-09 15:47 | disposition home or self-care (01) ==
LOC: HO.HMCFM 15:06
PROVIDERS: PCP Physician Assistant; Visit Provider Physician Assistant
DX: R63.4 Abnormal weight loss (principal); K21.9 Gastro-esophageal reflux disease without esophagitis

== ENCOUNTER 2025-05-11 09:10 | Outpatient (AMB) | payer OTHER, SELFPAY ==
--- OUTSIDE RECORDS SUMMARY | 2025-05-11 09:18 | XMS_ITS | Encounter Summary ---
Author Organization [facility] Address [address] [place] [address] Phone Care Team Providers Care Tax Collection Coordinator Name Role Phone Keely Tate MD Primary Care Provider Encounter Details Date Type Department Care Team (Late st Contact Info) Description 12/25/2011 Documentation [facility] [place] [address] [place] [address] Family Medicine, Physician [address] [phone] Social History Tobacco Use Types Packs/Day Years [...] on filedocumented in this encounter Care Teams Tax Collection Coordinator Relationship Specialty Start Date End Date eKely Tate MD [address] [place] [address] PCP - General 04/30/17 03/31/23 documented as of this encounter
--- OUTSIDE RECORDS SUMMARY | 2025-05-11 09:18 | XMS_ITS | Clinical Summary ---
Author Organization [employer] Address [address] [facility] [address] [place] [address] Care Team Providers Care Electrical System Specialist Name Role Phone Unavailable Primary Care Provider [...]
--- OUTSIDE RECORDS SUMMARY | 2025-05-11 09:18 | XMS_ITS | Clinical Summary ---
Author Organization [facility] ity Address [address] [place] [address] Care Team Providers Care Italian Lecturer Name Role Phone Unavailable Primary Care Provider [...]
--- NOTE | 2025-05-11 09:19 | A.OFFVIS_ITS ---
Vital Signs 05/11/25 09:21 Height 5 ft 3 in Weight 135 lb BMI 23.9 BP 101/40 L Blood Pressure Location Lt brachial Position Sitting Pulse 59 Pulse Oximetry (%) 98 Oxygen Delivery Method Room Air Intake Visit Reasons: 6 wks f/u Intake Note: Patient 6 weeks follow up abdominal pain Patient cc: soft stool, dizziness on and off, abdominal pain come and go and med is helping, too. 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 The patient reports significant improvement in epigastric pain since starting famotidine. Shares she got better relief at 40 mg daily instead of 20 mg twice daily. Constipation has improved with daily bowel movements; stools are soft though still require straining for passage. Patient is taking Miralax every other day, achieving normal stool consistency (types 3?4 per [place]on Stool Scale). Dietary changes include increased fruit consumption and beans, though limited vegetable intake. White rice intake persists. Reports she has been taking Iron supplementation for approximately one year. Patient awaiting CT abdomen/pelvis ( ordered by PCP) to complete next month and scheduled for colonoscopy and upper endoscopy on June 22. No recent hospitalizations or urgent care visits. No nausea, vomiting, or other acute symptoms PFSH Medical History (Updated 05/11/25 @ 10:08 by Priscila Perez CNP) Immunization counseling Acid reflux Change in stool Abnormal abdominal ultrasound Ovarian cyst Family History Mother No problems noted. 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 [employer] Current occupational exposures/hazards: No Cognitive needs: No Hearing needs: No Vision needs: Yes (glasses ) Review of Systems Const Reports as per HPI ENT Reports as per HPI Card Reports as per HPI Resp Reports as per HPI GI Reports as per HPI Reports as per HPI Physical Exam Const General: healthy appearing, no acute distress and well developed Nutritional Appearance: average body habitus Orientation/consciousness: patient oriented x3 HEENT Head: Yes normal to inspection, Yes normocephalic and Yes atraumatic Face and sinus: Yes normal facial exam Eyes General: appearance normal, both eyes and all related structures Neck Neck: Yes normal visual inspection Resp Effort & Inspection: normal respiratory effort, able to speak in complete sentences, no tracheal deviation and symmetric chest movement Auscultation: clear to auscultation bilaterally Cardio Jugular venous distension: no JVD Rate: regular rate Rhythm: regular rhythm Heart sounds: S1 normal heart sound present, S2 normal heart sound present, no gallops and no murmurs GI Inspection: Yes normal to inspection, No distended and Yes striae Palpation (GI): Soft to palpation, not firm, nontender and No hepatosplenomegaly present Auscultation: normal bowel sounds Neuro General: patient oriented x3 Gait exam (Neuro): Normal gait present Psych Appearance: grossly normal Mental Status: mental status grossly normal Speech and movement: Normal speech and movement present Affect: normal affect Attitude: cooperative Thought process: Normal thought process present Thought content: Normal thought content present Insight: Good insight present (Psych) Judgement: Good judgement present (Psych) Results Reviewed Results Reviewed: Laboratory Tests 03/19/25 03/30/25 08:29 16:58 Hgb 11.6 L Hct 34.8 L MCV 93.0 MCH 31.0 MCHC 33.3 RDW 13.6 Plt Count 175 D Hemoglobin A1c % 5.1 C-Reactive Protein < 0.10 TSH 1.69 Tiss Transglutamin IgA <1.0 Hepatitis A IgM Ab Nonreactive Hep Bs Antigen Negative Hep Bs Antibody NONREACTIVE Hep B Core Total Ab Nonreactive Hepatitis C Ab (EIA) Nonreactive HIV 1&2 Ab/P24 Ag 4thGn Nonreactive Laboratory Tests 06/20/24 03/19/25 11:33 08:29 Iron 54 TIBC 294 % Saturation 18 Unsat Iron Binding 240 Ferritin 29 Total Bilirubin 0.4 Direct Bilirubin 0.2 AST 23 ALT 9 Alkaline Phosphatase 55 Assessment & Plan Assessment & Plan (1) Acid reflux: Code(s): K21.9 - Gastro-esophageal reflux disease without esophagitis Category: Medical Qualifiers: Esophagitis presence: esophagitis presence not specified Qualified Code(s): K21.9 - Gastro-esophageal reflux disease without esophagitis Plan: Improving with famotidine 40 mg QD ; likely secondary to reduced constipation. No acute symptoms reported. Additional testing: upper endoscopy as scheduled Medications: Continue famotidine 40 mg QD. Remind the patient to hold famotidine for 24 hours prior to stool collection to avoid false-negative testing. Lifestyle Recommendations: Maintain dietary modifications aiding bowel regularity. Ensure elevated head during sleep and avoid triggers (e.g., spicy foods, caffeine). Follow-Up Plan: Reassess post-colonoscopy and endoscopy. (2) Change in stool: Code(s): R19.5 - Other fecal abnormalities Category: Medical Plan: Improving stool regularity, though residual straining remains despite Miralax and increased dietary fiber. Suspected association with iron supplementation. Additional testing: Stool studies pending for H. pylori and inflammatory markers. Medications: Continue Miralax every other day as tolerated; increase to daily if frequency declines (e.g., <4 times/week). Lifestyle Recommendations: Encourage fiber intake via beans, fruits, and alternative legumes (e.g., lentils, chickpeas). Hydration reinforced. Moderate rice consumption given its possible constipating effects. Referrals / Coordination of Care: None. Follow-Up Plan: Monitor bowel movement patterns, stool consistency, and ease during passage. (3) Weight loss: Code(s): R63.4 - Abnormal weight loss Category: Medical Plan: Stable without identifiable cause from prior testing (labs, chest X-ray). Pending CT imaging and procedural workup. Negative findings thus far; CT scan and upper/lower endoscopy forthcoming. Additional testing: Complete CT abdomen/pelvis (expedited referral) and pending colonoscopy/endoscopy June 22. Medications: None specific initiated until definitive underlying cause determined. Lifestyle Recommendations: Maintain dietary intake; avoid significant dietary restrictions until workup completed. Follow-Up Plan: July 06 follow-up post-procedure to review colonoscopy/endoscopy findings and imaging. (4) Immunization counseling: Code(s): Z71.85 - Encounter for immunization safety counseling Category: Medical Plan: Non-immune; hepatitis B serology negative. Preventive care?at risk for viral hepatitis. Plan: Recommend hepatitis B vaccine series. Pt may receive at GI clinic or PCP office, whichever is sooner. Pharmacy option to be explored. F/u: Confirm vaccine initiation/completion at next visit. Plan Follow-up endoscopy (scheduled 07/06) or sooner as needed Time: I spent a total of 35 minutes on the date of encounter which includes: Preparing to see the patient (reviewed previous documentation, test results and medical history) Performing a medically appropriate exam and/or evaluation Ordering medications, tests, and procedures Documenting clinical information in the health record Medications: New bisacodyl (Dulcolax (bisacodyl)) Take four tablets pre colonoscopy instructions 20 mg (4 x 5 mg) PO ONCE 4 tabs 0RF 1 day polyethylene glycol 3350 (Miralax) per colonoscopy prep instructions 238 grams PO ONCE 238 grams 0RF Coding Level of Care Code Established Pt Est Pt Level 4 (67206) Patient Type Established Diagnoses Gastroesophageal reflux disease, unspecified whether esophagitis present K21.9 Esophagitis presence: esophagitis presence not specified Change in stool R19.5 Weight loss R63.4 Immunization counseling Z71.85
[2025-05-11 09:21] VITALS: BP 101/40; PULSE 59; O2SAT 98; BMI 23.9
== END 2025-05-11 09:46 | disposition home or self-care (01) ==
LOC: HO.HGI 09:11
PROVIDERS: PCP Physician Assistant; Visit Provider Nurse Practitioner Family
DX: K21.9 Gastro-esophageal reflux disease without esophagitis (principal); R19.5 Other fecal abnormalities; R63.4 Abnormal weight loss; Z71.85 Encounter for immunization safety counseling
CPT/HCPCS: 99214

== ENCOUNTER 2025-06-20 10:16 | Emergency (ER) | payer OTHER, SELFPAY ==
--- NOTE | 2025-06-20 | ECG_ITS ---
Test Reason : CP Blood Pressure : */* mmHG Vent. Rate : 47 BPM Atrial Rate : 47 BPM P-R Int : 154 ms QRS Dur : 106 ms QT Int : 416 ms P-R-T Axes : 52 -22 12 degrees QTcB Int : 368 ms Sinus bradycardia Incomplete right bundle branch block Borderline ECG When compared with ECG of 10-Apr-2024 09:26, QT has shortened Referred By: Generic ED Physician Electronically Signed By: COLTEN TORRES
--- NOTE | ~2025-06-20 | XR_ITS ---
EXAMINATION: XR CHEST 2 VIEWS HISTORY: CP COMPARISON: Comparison is made with the prior examination dated 05/08/2025. FINDINGS: PA and lateral views of the chest are submitted. The lungs are expanded and clear. There is no pleural effusion, pneumothorax, or pulmonary vascular congestion. The heart is normal in size. The bones are intact. XR/XR chest 2V IMPRESSION: No acute cardiopulmonary abnormality. Electronically signed by: Celso Mtz MD 06/20/2025 11:03 AM EDT
[2025-06-20 10:29] VITALS: BP 111/55; PULSE 51; RESP 16; TEMP 36.7; O2SAT 99; BMI 23.1
--- NOTE | 2025-06-20 10:29 | ED_ITS ---
HPI - Chest Pain General Chief Complaint: Chest Pain Stated Complaint: Chest pain Time Seen by Provider: 06/20/25 11:00 History of Present Illness ED Provider: Didier BORDEN narrative: The patient is a 24-year-old woman who says that yesterday morning she developed pain in the left side of her chest that has been persistent since then. It is a sharp pain that is worse when she takes a deep breath or with movements or with the coughing. She has not had any fever, sweats, chills. She has had no significant cough. No sputum production. She has nausea but this is not uncommon for her. She reports having frequent gastrointestinal indispositions and she says that she had a CAT scan of her abdomen as an outpatient yesterday to follow up on a possible mass seen on a previous CAT scan. This was done at [facility]. She denies any injury that could have caused any pain in her chest. She says the pain in her chest is also worse when she moves her left arm. No pain or swelling in her legs. Related Data Home Medications ?Medication ?Instructions ?Recorded ?Confirmed sertraline 25 mg tablet mg PO DAILY 11/08/24 5 ferrous sulfate 325 mg (65 mg 325 mg PO DAILY 05/11/25 05/11/25 iron) tablet Previous Rx's ?Medication ?Instructions ?Recorded mecobalamin (vitamin B12) 1,000 1,000 mcg sublingual D AILY #90 tabs 12/15/24 mcg disintegrating tablet,sublingual ondansetron 4 mg disintegrating 4 mg PO Q8H PRN nausea and 03/19/25 tablet vomiting #20 tabs polyethylene glycol 3350 17 17 g PO DAILY constipation 30 days 03/30/25 gram/dose oral powder (Miralax) #510 grams famotidine 20 mg tablet (Pepcid) 20 mg PO BID PRN abdo grace 04/25/25 discomfort #60 tabs bisacodyl 5 mg tablet,delayed 20 mg (4 x 5 mg) PO ONCE 1 day #4 05/11/25 release (Dulcolax (bisacodyl)) tabs polyethylene glycol 3350 17 238 g PO ONCE #238 grams 0 05/11/25 gram/dose oral powder (Miralax) acetaminophen 500 mg capsule 1,000 mg (2 x 500 mg) PO Q8H PRN 10/01/25 fever or pain #14 caps ibuprofen 400 mg tablet 400 mg PO Q6H PRN pain #14 t abs 06/20/25 Allergies Allergy/AdvReac Type Severity Reaction Status Date / Time No Known Allergies (No Known Allergy Verified 06/20/25 10:31 Allergies*) Review of Systems 2 Review of Systems: Yes all other systems are reviewed and are negative [facility] Past Medical History Medical History (Updated 06/20/25 @ 12:23 by Jose R Velásquez MD) Immunization counseling Acid reflux Change in stool Abnormal abdominal ultrasound Ovarian cyst Family History Family History Mother No problems noted. Father Heart problem Paternal Grandmother H/O heart surgery Social History Social History Housing: Apartment Alcohol intake: current Alcohol intake frequency: holidays/special occasions only Patient Tobacco Use Status: Never used Tobacco Smoked in Last 30 Days: No e-Cigarette/Vaping Use: Currently Using Second Hand Smoke Exposure: No Use of substances other than those prescribed or required for medical reasons: Yes Substance Use Type: Marijuana Substance Use Frequency: Occasionally Advance Directives: No Advance Directives Information Provided: Yes Do you have a plan to hurt others: No Plan service: No Current occupational status: employed 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 She looks as though she is ordinarily slim and healthy. She was tearful in telling her history. She did not seem in distress. HEENT: Other: The face is symmetrical. ?Mucous membranes moist. Eyes: Other: Pupils are round equal, conjunctivae are clear, extraocular movements intact Neck: Neck: Yes normal visual inspection, Yes full ROM and Yes no JVD Chest: Other: There is tenderness along the left sternal border. Palpation seems to reproduce her pain. Resp: Effort & Inspection: normal respiratory effort Auscultation: clear to auscultation bilaterally Cardio: Other: No murmur Rate: regular rate Rhythm: regular rhythm Heart sounds: S1 normal heart sound present and S2 normal heart sound present GI: Other: Abdomen is flat, soft, nontender. Skin: Other: The skin is dry and unremarkable Course Course Course Narrative: This is an RME: Additional HPI, ROS, PE not included below will be deferred to primary provider. RME assessment and note performed by: Ting Tanner PA-C This is a [id number]-female, with a hx of anemia, who presents to the ER with complaints of chest pain which started yesterday. Reports that she is unable to move her left arm due to the pain in her chest. Reporting some shortness of breath. No hx of similar symptoms. +nausea, diarrhea. Pt reports no control use. No recent travel, surgeries, hospitalizations. Also is being worked up for a mass in her pelvis. Plan: Labs, xray, further ER eval needed Medications Administered Discontinued Medications Generic Name Dose Route Start Last Admin Trade Name Freq PRN Reason Stop Dose Admin Ketorolac Tromethamine 10 mg 06/20/25 11:15 06/20/25 11:30 Ketorolac Tromethamine 15 Mg/Ml Vial IVPUSH 06/20/25 11:16 10 mg ONCE ONE Administration Medical Decision Making Medical Decision Making [facility] Narrative: The patient is a very pleasant 24-year-old. Clinically she seems to have left- sided chest wall pain. She has an EKG that shows an old incomplete right bundle gabby block and no new findings. Her chest x-ray is clear. A troponin is negative after 24 hours of constant discomfort. Her pain is very positional and pleuritic. She has a an undetectable D-dimer. I therefore do not think that she has a myocardial infarction, pulmonary embolism, and aortic dissection, pneumonia, or other acutely dangerous process. I think this is chest wall pain. She improved with ketorolac. She was reassured. She will be discharged. She was given a work note. Lab Data 06/20/25 11:23 06/20/25 11:23 Labs: Lab Results 06/20/25 Range/Units 11:23 WBC 4.6 L (4.8-10.8) X10*3/uL RBC 3.85 L (4.20-5.50) X10*6/uL Hgb 12.1 (12.0-16.0) g/dl Hct 35.3 L (37.0-47.0) % MCV 91.7 (80.0-98.0) fL MCH 31.4 (27.0-33.0) pg MCHC 34.3 (31.0-35.0) g/dl RDW 13.4 (11.0-16.0) % Plt Count 195 (160-400) X10*3/uL MPV 11.4 (9.4-12.3) fL Immature Gran % (Auto) 0.4 (0.0-0.4) % Neut % (Auto) 61.2 (45-73) % Lymph % (Auto) 27.4 (20-40) % [place] % (Auto) 7.6 (2-11) % Eos % (Auto) 2.8 (0-4) % Baso % (Auto) 0.6 (0-2) % Lymph # (Auto) 1.3 (1.2-4.9) X10*3/uL [place] # (Auto) 0.4 (0.1-1.2) X10*3/uL Eos # (Auto) 0.1 (0.0-0.4) X10*3/uL Baso # (Auto) 0.0 (0.0-0.2) X10*3/uL Abs Immat Gran (auto) 0.02 (0.00-0.03) X10*3/uL Absolute Neuts (auto) 2.8 (2.0-8.3) x10*3/uL Absolute Nucleated RBC 0.000 (0.0-0.012) X10*3/uL Nucleated RBC % (auto) 0.0 (0.0-0.2) /100WBC D-Dimer High Sensitivty < 150 NG/ML Sodium 141 (135-145) mmol/L Potassium 3.9 (3.3-5.1) mmol/L Chloride 107 (96-108) mmol/L Carbon Dioxide 27 (22-29) mmol/L Anion Gap 11 L (12-20) BUN 10 (9-16) mg/dL Creatinine 0.71 (0.5-1.4) mg/dL Estim Creat Clear Calc 100.1 Estimated GFR > 60 Random Glucose 87 (60-115) mg/dL Calcium 9.6 D (8.4-10.2) mg/dL Total Bilirubin 0.5 (0.0-1.0) mg/dL Direct Bilirubin 0.2 (0.0-0.5) mg/dL AST 31 (5-31) U/L ALT 15 (0-31) U/L Alkaline Phosphatase 68 (39-117) U/L Troponin I High Sens < 2.7 (<3.5-17.0) ng/L Total Protein 7.5 (6.5-8.0) g/dL Albumin 4.9 (3.5-5.0) g/dL Beta HCG, Quant < 2 mIU/mL Discharge Plan Discharge Clinical Impression: Acute chest wall pain Patient Disposition: Home, Self-Care Instructions: Chest Wall Pain (ED) Additional Instructions: I believe that you were experiencing what we called ?chest wall pain. ? This means that I think the pain is coming from some of the components that make up the outside of your chest wall. The chest wall consists of the bones, cartilage, and muscles which make up the chest wall. This is a fairly common source of pain in young, otherwise healthy people. There was no sign of a heart attack. There was no sign of a blood clot in your lungs. Your chest x-ray looks good. You may use ibuprofen and acetaminophen as needed for discomfort. Please plan on following up with your regular doctor. Return to the emergency department if you feel significantly worse. Prescriptions: New acetaminophen 500 mg capsule 1,000 mg PO Q8H PRN (Reason: fever or pain) Qty: 14 0RF ibuprofen 400 mg tablet 400 mg PO Q6H PRN (Reason: pain) Qty: 14 0RF No Action mecobalamin (vitamin B12) 1,000 mcg tablet,disintegrating 1,000 mcg sublingual DAILY Qty: 90 0RF Rx Instructions: place tablet under tongue and allow to dissolve for at least30 secs before swallowing famotidine [Pepcid] 20 mg tablet 20 mg PO BID PRN (Reason: abdominal discomfort) Qty: 60 3RF ondansetron 4 mg tablet,disintegrating 4 mg PO Q8H PRN (Reason: nausea and vomiting) Qty: 20 0RF sertraline 25 mg tablet PO DAILY Rx Instructions: , polyethylene glycol 3350 [Miralax] 17 gram/dose powder 17 g PO DAILY 30 Days Qty: 510 2RF Rx Instructions: Take 17G (one cap full) daily with 8oz of water ferrous sulfate 325 mg (65 mg iron) tablet 325 mg PO DAILY bisacodyl [Dulcolax (bisacodyl)] 5 mg tablet,delayed release (DR/EC) 20 mg PO ONCE 1 Days Qty: 4 0RF Rx Instructions: Take four tablets pre colonoscopy instructions polyethylene glycol 3350 [Miralax] 17 gram/dose powder 238 g PO ONCE Qty: 238 0RF Rx Instructions: per colonoscopy prep instructions Referrals: Kamila Murdock PA-C [Primary Care Provider, Endocrinology] Stand Alone Forms: Work/School Release Interventions: ED Discharge Assessment Last Done: 06/20/25 12:38 Discharge Date/Time: 06/20/25 12:46 Print Language: Sudanese
[2025-06-20 10:59] VITALS: BP 112/51; PULSE 48; RESP 12; TEMP 36.8; O2SAT 100
--- NOTE | 2025-06-20 11:08 | PC.NURSE ---
C/o substernal and left chest pain. 8/10 pain. Could not use left arm yesterday Still painful with certain positions. Coughing or inspiration hurts. Has not tried any home remedies. HX bradycardia, gastritis.
[2025-06-20 11:41] LABS: MANUAL DIFF FLAG NO
[2025-06-20 11:43] LABS: Hematocrit 35.3 % (37.0-47.0); Hemoglobin 12.1 g/dl (12.0-16.0); Imm Gran Abs Auto 0.02 X10*3/uL (0.00-0.03); Imm Gran Pct Auto 0.4 % (0.0-0.4); Lymphocytes Absolute Auto 1.3 X10*3/uL (1.2-4.9); Mean Corpuscular HGB Conc 34.3 g/dl (31.0-35.0); Mean Corpuscular Hemoglobin 31.4 pg (27.0-33.0); Mean Corpuscular Volume 91.7 fL (80.0-98.0); NRBC Abs Auto 0.000 X10*3/uL (0.0-0.012); NRBC Pct Auto 0.0 /100WBC (0.0-0.2); Platelet Count 195 X10*3/uL (160-400); Red Blood Count 3.85 X10*6/uL (4.20-5.50); White Blood Count 4.6 X10*3/uL (4.8-10.8)
[2025-06-20 11:52] LABS: D Dimer High Sensitivity < 150 NG/ML
[2025-06-20 12:03] LABS: Alanine Aminotransferase 15 U/L (0-31); Albumin Level 4.9 g/dL (3.5-5.0); Alkaline Phosphatase 68 U/L (39-117); Anion Gap 11 (12-20); Aspartate Amino Transferase 31 U/L (5-31); Blood Urea Nitrogen 10 mg/dL (9-16); Calcium 9.6 mg/dL (8.4-10.2); Carbon Dioxide 27 mmol/L (22-29); Chloride 107 mmol/L (96-108); Creatinine Clr Calc Pharmacy 100.1; Estimated Glomerular Filt Rate > 60; Potassium 3.9 mmol/L (3.3-5.1); Sodium 141 mmol/L (135-145); Total Protein 7.5 g/dL (6.5-8.0)
[2025-06-20 12:06] LABS: Troponin-I High Sensitivity < 2.7 ng/L (<3.5-17.0)
[2025-06-20 12:38] VITALS: BP 104/55; PULSE 49; RESP 12; TEMP 36.6
--- OUTSIDE RECORDS SUMMARY | 2025-06-20 13:05 | XMS_ITS | Encounter Summary ---
Author Organization [facility] Address [address] [place] [phone] Phone Care Team Providers Care Junior Web Developer Name Role Phone Keely Tate MD Primary Care Provider [phone] Encounter Details Date Type Department Care Team (Late st Contact Info) Description 01/14/2012 Documentation [facility] [address] [place] [address] Family Medicine, Physician [address], [place] [phone] Social History Tobacco Use Types Packs/Day Years [...] on filedocumented in this encounter Care Teams Junior Web Developer Relationship Specialty Start Date End Date Keely Tate MD [address] [place] [address] PCP - General 04/30/17 03/31/23 documented as of this encounter
--- OUTSIDE RECORDS SUMMARY | 2025-06-20 13:05 | XMS_ITS | Encounter Summary ---
Author Organization [email or web address] Address [address] [facility] [address] [place] [address] Care Team Providers Care Veterinary Technology Instructor Name Role Phone Unavailable Primary Care Provider Unavailabl e Reason for Visit * Reason Onset Date Comments no insurance emergency visit 09/18/2024 Encounter Details Date Type Department Care Team (Late st Contact Info) Description 09/18/2024 Telephone [facility] [address], [place] [phone] Darnell Zuniga DDS [address], [place] [phone] no insurance emergency visit Social History Tobacco [...]
--- OUTSIDE RECORDS SUMMARY | 2025-06-20 13:05 | XMS_ITS | Encounter Summary ---
Author Organization [facility] Address [address] [place] [phone] Phone Care Team Providers Care Dumb Waiter Operator Name Role Phone Keely Tate MD Primary Care Provider Encounter Details Date Type Department Care Team (Late st Contact Info) Description 05/06/2017 Conversion Encounter [facility] [address] [place] [address] Social History Tobacco Use Types Packs/Day Years Used Date Smoking Tobacco: Never Comments:Never smoker Comments Unknown Sex and Gender Information Value Date Recorded Sex Assigned at Not on file Legal Sex Female 5:06 PM EDT Gender Identity Not on file Sexual Orientation Not on file documented as of this encounter Plan of Treatment Not on file documented as of this encounter Visit Diagnoses Not on filedocumented in this encounter Care Teams Dumb Waiter Operator Relationship Specialty Start Date End Date Keely Tate MD [address] [place] [address] PCP - General 04/30/17 03/31/23 documented as of this encounter
--- OUTSIDE RECORDS SUMMARY | 2025-06-20 13:05 | XMS_ITS | Clinical Summary ---
Author Organization [facility] Address [address] [place] [address] Phone Care Team Providers Care Cell Room Operator Name Role Phone Unavailable Primary Care Provider Unavailabl e Allergies No known active allergies Medications medroxyPROGESTER one (DEPO-PROVERA) 150 MG/ML injection Inject into the muscle. 04/28/2017 Active Active Problems Problem Noted Date Diagnosed Date Mild intermittent asthma without complication Immunizations Immunization Administration Dates Next Due DTaP 5 01/15/2004, 2,05/21/2000, 000,01/13/2000 HPV, Quadrivalent 12/04/2011,06/05/2011,03/31/20 11 Hep A, ped/adol 07/06/2014,03/31/2011 Hep B, ped/adol 06/21/2000,03/19/2000,1999 Hib (PRP-T) 11/18/2001, 0,03/19/2000, 000 IPV 01/15/2004, 0,03/19/2000, 000 Influenza, injectable, trivalent 08/02/2006,06/20 MMR 01/15/2004,11/18/2000 Meningococcal Conj (Menactra) MCV4P 04/28/2017,0 03/31/2011 PPD Test 09/22/2018 Pneumococcal Conjugate 08/20/2000,05/21/2000 Tdap 03/31/2011 Varicella 03/19/2009,11/18/2000 Family History Relation Name Status Comments Brother 1 Brother: Bipola r disorder, ADD/ADHD, Asthma, ADD/ADHD Brother 2 Brother: Bipola r disorder, ADD/ADHD, Asthma, ADD/ADHD Brother 3 Brother: Bipola r disorder, ADD/ADHD, Asthma, ADD/ADHD Brother 4 Brother: Bipola r disorder, ADD/ADHD, Asthma, ADD/ADHD Father Father: Depress ion Maternal Grandmother Materna l grandmother: *Heart Disease Mother Mother: Asthma Other No family histo ry of *Sudden /AK under 55, No family history of *CVA/Stroke, No family history of *Thrombophilia, No family history of *Dental caries Social History Tobacco Use Types Packs/Day Years Used Date Smoking Tobacco: Never Smokeless Tobacco: Never Comments:Never smoker Comments Unknown Sex and Gender Information Value Date Recorded Sex Assigned at Not on file Legal Sex Female 5:06 PM EDT Gender Identity Not on file Sexual Orientation Not on file Last Filed Vital Signs Vital Sign Reading Time Taken Comments Blood Pressure 119/88 07/27/2017 2:19 PM EST Pulse 95 07/27/2017 2:19 PM EST Temperature 36.9 C (98.4 F) 07/27/2017 2:19 PM EST Respiratory Rate - - Oxygen Saturation - - Inhaled Oxygen Concentration - - Weight 74.1 kg (163 lb 6 oz) 07/27/2017 2:19 PM EST Height 161.9 cm (5' 3.75 ) 04/28/2017 12:00 AM E DT Body Mass Index - - Plan of Treatment Health Maintenance Due Date Last Done Comments DTaP,Tdap,and Td Vaccines (7 - Td or Tdap) 03/31/2021 03/31/2011, 01/15/2004, 11/18/2001, Additional history exists Influenza Vaccines (#1) 2025 08/02/2006, 07/01 COVID-19 Vaccine ( season) 2025 Hepatitis B Vaccines Completed 06/21/2000, 03/19/2000, 1999 Pneumococcal Vaccine Aged Out 08/20/2000, 05/21/20 00 No longer eligible based on patient's age to complete this topic HIB Vaccines Completed 11/18/2001, 09/1999, 03/19/2000, Additional history exists IPV Vaccines Completed 01/15/2004, 09/1999, 03/19/2000, Additional history exists MMR Vaccines Completed 01/15/2004, 11/18/2000 Varicella Vaccines Completed 03/19/2009, 11/18/2000 HPV Vaccines Completed 12/04/2011, 05/21, 03/31/2011 Hepatitis A Vaccines Completed 07/06/2014, 03/31/20 11 Meningococcal Vaccine Completed 04/28/2017, 011 Men B Vaccine Aged Out No longer elig ible based on patient's age to complete this topic Insurance [facility] NON PCC
--- OUTSIDE RECORDS SUMMARY | 2025-06-20 13:05 | XMS_ITS | Clinical Summary ---
Author Organization [employer] Address [address] [facility] [address] [place] [address] Care Team Providers Care Bread Oven Operator Name Role Phone Unavailable Primary Care [...] COVID-19 Vaccine (1 - 2023-2 5 season) 2025 Influenza Vaccine (#1) 2025 Zoster Vaccines (1 [...]
--- OUTSIDE RECORDS SUMMARY | 2025-06-20 13:05 | XMS_ITS | Encounter Summary ---
Author Organization [facility] Address [address] [place] [id number] Phone Care Team Providers Care Maintenance Millwright Name Role Phone Keely Tate MD Primary Care Provider [phone] Encounter Details Date Type Department Care Team (Late st Contact Info) Description 12/25/2011 Documentation [facility] [place] Family Medicine [address] [place] [address] Family Medicine, Physician [address] [phone] Social History Tobacco Use Types Packs/Day Years [...] on filedocumented in this encounter Care Teams Maintenance Millwright Relationship Specialty Start Date End Date Keely Tate MD [address] [place] [address] PCP - General 04/30/17 03/31/23 documented as of this encounter
--- OUTSIDE RECORDS SUMMARY | 2025-06-20 13:05 | XMS_ITS | Encounter Summary ---
Author Organization [facility] Address [address] [place] [address] Phone Care Team Providers Care Crime Scene Specialist Name Role Phone Keely Tate MD Primary Care Provider Encounter Details Date Type Department Care Team (Late st Contact Info) Description 03/08/2012 Documentation [facility] [place] [address] [place] [address] Family Medicine, Physician [address] [place] [phone] Social History Tobacco Use Types Packs/Day Years [...] on filedocumented in this encounter Care Teams Crime Scene Specialist Relationship Specialty Start Date End Date Keely Tate MD [address] [place] [address] PCP - General 04/30/17 03/31/23 documented as of this encounter
--- OUTSIDE RECORDS SUMMARY | 2025-06-20 13:05 | XMS_ITS | Encounter Summary ---
Author Organization [facility] Address [address] [place] [address] Phone Care Team Providers Care Vocational Ed Instructor Name Role Phone Keely Tate MD Primary Care Provider Encounter Details Date Type Department Care Team (Late st Contact Info) Description 12/28/2011 Document[place] [facility] [place] [address] [place] [address] Family Medicine, Physician [address] [phone] Social History Tobacco Use Types Packs/Day Years [...] on filedocumented in this encounter Care Teams Vocational Ed Instructor Relationship Specialty Start Date End Date Keely Tate MD [address] [place] [address] PCP - General 04/30/17 03/31/23 documented as of this encounter
--- OUTSIDE RECORDS SUMMARY | 2025-06-20 13:05 | XMS_ITS | Clinical Summary ---
Author Organization [facility] it Address [address] [place] [address] Care Team Providers Care Director Of Technology Name Role Phone Unavailable Primary Care Provider [...] Cervical Cancer Screening: P ap Smear 2020 Depression Screening 09/20/2024 COVID-19 Vaccine (1 - 2023-2 5 season) 2025 Influenza Vaccine (#1) 2025 RSV Immunization Adult Patie nts (1 - 1-dose 75+ series) 2074 HIB [...]
== END 2025-06-20 12:46 | disposition home or self-care (01) ==
PROVIDERS: Physician Assistant Medical; Emergency Provider Emergency Medicine; PCP Physician Assistant
DX: R07.89 Other chest pain (principal)
CPT/HCPCS: 36415; 71046; 80048; 80076; 84484; 84702; 85025; 85379; 93000; 96374; 99284; J1885

== ENCOUNTER → 2025-06-20 10:37 | Outpatient (BNV) | payer OTHER, SELFPAY | PROVIDERS: Emergency Provider Emergency Medicine; PCP Physician Assistant; Visit Provider Radiology Diagnostic Radiology | DX: R07.89 Other chest pain (principal) | CPT/HCPCS: 71046 ==

== ENCOUNTER 2025-08-23 13:26 | Outpatient (AMB) | payer OTHER, SELFPAY ==
[2025-08-23 13:39] VITALS: BP 96/62; PULSE 62; RESP 12; TEMP 36.7; O2SAT 100; BMI 24.2
--- NOTE | 2025-08-23 13:39 | MHC.PC.OV ---
Vital Signs 08/23/25 13:39 Height 5 ft 3 in Weight 136 lb 6 oz BMI 24.2 BP 96/62 Blood Pressure Location Rt brachial Position Sitting Respiration 12 Pulse 62 Pulse Source Pulse Oximeter Temp 98.1 F Temp Source Oral Pulse Oximetry (%) 100 Oxygen Delivery Method Room Air Intake Visit Reasons: Follow up after GI Intake Note: Follow up Floor Sander Required: No Allergies No Known Allergies (No Known Allergies*) Allergy (Verified 08/23/25 13:40) Tobacco use date assessed: 08/23/25 Dental Screening Dental Screen Date: 04/04/25 HPI Follow up after GI HPI Details Pt is a 24 y/o female who presents today for a follow up. GI: She states since Oct when she was sick with a GI bug she has had this intermittent abdominal pain that is sharp and causes n/v. She states it can be triggered by eating or not. She was sick in Oct and lost about 17 lbs from last documented weight (154 lbs in fall 2023). She states she lost that weight all over the course of a couple weeks of being sick and since then has been around 138. She has not continued to lose weight but has not really gained back the weight. She did see Colorectal surgery today and was told that the pelvic mass was likely not malignant but the only way to really make that determination would be through removal of the mass. She states that the surgeon recommended she gets it double endoscopy 1st. She does not think it is causing any of her symptoms. -last year in January [address] did have a ct abd/pelvis for abdominal pain and was noted to have colitis. She also was recommended to see gen surgery for possible gb disease. She did follow with gen surgery who did not feel intervention was necessary at that time. CV: has persistent bradycardia and is not currently symptomatic. She did follow with cardiology. [facility] Medical History (Updated 06/21/25 @ 15:22 by Kamila Murdock PA-C) Immunization counseling Acid reflux Change in stool Abnormal abdominal ultrasound Ovarian cyst Family History Mother No problems noted. 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 [employer] Current occupational exposures/hazards: No Cognitive needs: No Hearing needs: No Vision needs: Yes (glasses ) Questionnaire Thrive Questionnaire Date Thrive assessed: 11/08/24 I am a: Patient What is your living situation today?: I choose not to answer this question Within the past 12 months, did the food you bought not last and you didn't have the money to get more?: I choose not to answer this question Within the past 12 months, did you worry whether your food would run out before you got money to buy more?: I choose not to answer this question Do you have trouble paying for medicines?: I choose not to answer this question Do you have trouble getting transportation to medical appointments?: I choose not to answer this question Do you have trouble paying your heating and electricity bill?: I choose not to answer this question Do you have trouble taking care of your child, family member or friend?: I choose not to answer this question Do you have trouble with day-to-day activities such as bathing, preparing meals, shopping, managing finances, etc.?: I choose not to answer this question Are you currently unemployed and looking for a job?: I choose not to answer this question Are you interested in more education?: I choose not to answer this question Please select the resources that you would like help with: None Currently or been in a relationship where the following occur: I choose not to answer THRIVE Score: 0 AUDIT C Alcohol Use Questionnaire (AUDIT-C) 1. How often do you have a drink containing alcohol?: Monthly or less 2. How many drinks containing alcohol do you have on a typical day when you are drinking?: 1 or 2 3. How often do you have six or more drinks on one occasion?: Never Total Score: 1 Physical exam (Primary Care) Vital Signs: Last Vital Signs Temp 98.1 F 08/23/25 13:39 Pulse 62 08/23/25 13:39 Resp 12 08/23/25 13:39 BP 96/62 08/23/25 13:39 Pulse Ox 100 08/23/25 13:39 Oxygen Delivery Method Room Air 08/23/25 13:39 BMI result Body Mass Index 24.2 Tobacco/Smoking Status: Tobacco use Status Tobacco use date assessed 08/23/25 08/23/25 13:43 Patient Tobacco Use Status Never used Tobacco 08/23/25 13:43 e-Cigarette/Vaping Use Currently Using 08/23/25 13:43 Thrive Assessment: Date of Thrive Assessment Date Thrive assessed 11/08/24 08/23/25 13:43 Currently or been in a relationship where the following occur: I choose not to answer Const Orientation/consciousness: patient oriented x3 HENMT Ears: hearing grossly normal bilaterally Neck Thyroid: Thyroid normal Lymphatic: no lymphadenopathy noted Resp Auscultation: clear to auscultation bilaterally Cardio Rate: regular rate Rhythm: regular rhythm Heart sounds: S1 normal heart sound present and S2 normal heart sound present GI Inspection: Yes normal to inspection Palpation (GI): Soft to palpation and Other GI palpation findings present (nontender, no cva tenderness) Auscultation: normoactive bowel sounds Rectal Exam - Female: deferred Skin General skin exam: no rashes or lesions noted Neuro General: patient oriented x3, gait normal and no focal motor deficits Results Reviewed Results Reviewed: Laboratory Tests 06/20/25 11:23 WBC 4.6 L RBC 3.85 L Hgb 12.1 Hct 35.3 L Plt Count 195 Sodium 141 Potassium 3.9 Chloride 107 Carbon Dioxide 27 Anion Gap 11 L BUN 10 Creatinine 0.71 Estim Creat Clear Calc 100.1 Estimated GFR > 60 Random Glucose 87 Calcium 9.6 D Total Bilirubin 0.5 Direct Bilirubin 0.2 AST 31 ALT 15 Alkaline Phosphatase 68 Coding Level of Care Code Est Pt Level 4 (83061) Complex visit Add On G2211 Diagnoses Iron deficiency anemia due to chronic blood loss D50.0 Anemia type: iron deficiency Iron deficiency anemia type: chronic blood loss Weight loss R63.4 Pelvic mass R19.00 Assessment & Plan Assessment & Plan (1) Anemia: Code(s): D64.9 - Anemia, unspecified Category: Medical Qualifiers: Anemia type: iron deficiency Iron deficiency anemia type: chronic blood loss Qualified Code(s): D50.0 - Iron deficiency anemia secondary to blood loss (chronic) Plan: We will check labs today (2) Weight loss: Code(s): R63.4 - Abnormal weight loss Category: Medical Plan: Stable Message sent to GI to follow up regarding consultation for endoscopic procedure (3) Pelvic mass: Code(s): R19.00 - Intra-abdominal and pelvic swelling, mass and lump, unspecified site Category: Medical Plan: Following with Colorectal surgery Plan Short term follow up. Sooner if needed. Patient understands and agrees with the plan. Orders: Orders TSH reflex Free T4 Today D50.0 - Iron deficiency anemia secondary to blood loss (chronic), R19.00 - Intra-abdominal and pelvic swelling, mass and lump, unspecified site, R63.4 - Abnormal weight loss Comprehensive Met. Panel Today D50.0 - Iron deficiency anemia secondary to blood loss (chronic), R19.00 - Intra-abdominal and pelvic swelling, mass and lump, unspecified site, R63.4 - Abnormal weight loss Ferritin Today D50.0 - Iron deficiency anemia secondary to blood loss (chronic), R19.00 - Intra-abdominal and pelvic swelling, mass and lump, unspecified site, R63.4 - Abnormal weight loss IRON PROFILE Today D50.0 - Iron deficiency anemia secondary to blood loss (chronic), R19.00 - Intra-abdominal and pelvic swelling, mass and lump, unspecified site, R63.4 - Abnormal weight loss Vitamin B12 and Folate Today D50.0 - Iron deficiency anemia secondary to blood loss (chronic), R19.00 - Intra-abdominal and pelvic swelling, mass and lump, unspecified site, R63.4 - Abnormal weight loss Complete Blood Count Auto Diff Today D50.0 - Iron deficiency anemia secondary to blood loss (chronic), R19.00 - Intra-abdominal and pelvic swelling, mass and lump, unspecified site, R63.4 - Abnormal weight loss
== END 2025-08-23 14:09 | disposition home or self-care (01) ==
LOC: HO.HMCFM 13:27
PROVIDERS: PCP Physician Assistant; Visit Provider Physician Assistant
DX: D50.0 Iron deficiency anemia secondary to blood loss (chronic) (principal); R63.4 Abnormal weight loss; R19.00 Intra-abdominal and pelvic swelling, mass and lump, unspecified site

== ENCOUNTER 2025-08-23 13:26 | Outpatient (REF) | payer OTHER, SELFPAY ==
[2025-08-23 17:49] LABS: MANUAL DIFF FLAG NO
[2025-08-23 18:02] LABS: Hematocrit 36.5 % (37.0-47.0); Hemoglobin 11.9 g/dl (12.0-16.0); Imm Gran Abs Auto 0.02 X10*3/uL (0.00-0.03); Imm Gran Pct Auto 0.3 % (0.0-0.4); Lymphocytes Absolute Auto 1.7 X10*3/uL (1.2-4.9); Mean Corpuscular HGB Conc 32.6 g/dl (31.0-35.0); Mean Corpuscular Hemoglobin 30.5 pg (27.0-33.0); Mean Corpuscular Volume 93.6 fL (80.0-98.0); NRBC Abs Auto 0.000 X10*3/uL (0.0-0.012); NRBC Pct Auto 0.0 /100WBC (0.0-0.2); Platelet Count 185 X10*3/uL (160-400); Red Blood Count 3.90 X10*6/uL (4.20-5.50); White Blood Count 6.1 X10*3/uL (4.8-10.8)
[2025-08-23 18:33] LABS: Alanine Aminotransferase 19 U/L (0-31); Albumin Level 4.8 g/dL (3.5-5.0); Alkaline Phosphatase 59 U/L (39-117); Anion Gap 10 (12-20); Aspartate Amino Transferase 32 U/L (5-31); Blood Urea Nitrogen 13 mg/dL (9-16); Calcium 9.5 mg/dL (8.4-10.2); Carbon Dioxide 25 mmol/L (22-29); Chloride 110 mmol/L (96-108); Estimated Glomerular Filt Rate > 60; Iron 131 mcg/dL (30-160); Percent Iron Saturation 45 % (15-50); Potassium 4.2 mmol/L (3.3-5.1); Sodium 141 mmol/L (135-145); Total Iron Binding Capacity 294 mcg/dL (228-428); Total Protein 7.4 g/dL (6.5-8.0); Unsaturated Iron Binding 163 ug/dL
[2025-08-23 18:34] LABS: Ferritin 24 ng/mL (10-122)
[2025-08-23 18:45] LABS: Folate 9.7 ng/mL (> or = 4.0); Vitamin B12 212 pg/mL (200-900)
== END 2025-08-23 13:27 | disposition home or self-care (01) ==
LOC: HO.WFDLDS 13:26
PROVIDERS: PCP Physician Assistant; Visit Provider Physician Assistant
DX: D50.0 Iron deficiency anemia secondary to blood loss (chronic) (principal); R63.4 Abnormal weight loss; R19.00 Intra-abdominal and pelvic swelling, mass and lump, unspecified site; R00.1 Bradycardia, unspecified
CPT/HCPCS: 36415; 80053; 82607; 82728; 82746; 83525; 83540; 84443; 84681; 85025